=== PATIENT | female | born 1945 | race Caucasian/White ===

== ENCOUNTER 2016-09-07 07:27 | Outpatient (CLI) | payer MEDICARE ==
[2016-09-07 19:58] LABS: ALBUMIN/GLOBULIN RATIO 1.3 (1.0-2.2); BASOPHILS # (AUTO) 0.1 10^3/uL (0.0-0.1); BILIRUBIN,TOTAL 0.6 mg/dL (0.2-1.0); BUN - BLOOD UREA NITROGEN 22 mg/dL (6-20); CALCIUM 8.8 mg/dL (8.5-10.3); CARBON DIOXIDE - CO2 25 mmol/L (21-32); CHLORIDE 106 mmol/L (101-111); CHOL/HDL RATIO 3.9 (<4.4); CHOLESTEROL 164 mg/dL; CREATININE 1.3 mg/dL (0.4-1.0); EOSINOPHILS # (AUTO) 0.2 10^3/uL (0.0-0.7); EOSINOPHILS % (AUTO) 2.1 %; GFR - MDRD 41 (>89); GLUCOSE 156 mg/dL (70-100); HCT - HEMATOCRIT 36.8 % (37.0-47.0); HDL CHOLESTEROL 42 mg/dL; LDL/HDL RATIO 2.3 (<4.4); LYMPHOCYTES # (AUTO) 3.2 10^3/uL (1.5-3.5); LYMPHOCYTES % (AUTO) 36.7 %; MEAN CORPUSCULAR HEMOGLOBIN 31.3 pg (27.0-31.0); MEAN CORPUSCULAR HGB CONC 32.5 g/dL (32.0-36.0); MEAN CORPUSCULAR VOLUME 96.3 fL (81.0-99.0); MONOCYTES # (AUTO) 0.4 10^3/uL (0.0-1.0); MONOCYTES % (AUTO) 4.5 %; NEUTROPHILS # (AUTO) 4.8 10^3/uL (1.5-6.6); NEUTROPHILS % (AUTO) 55.7 %; NUCLEATED RED BLOOD CELLS AUTO 0.1 /100WBC; POTASSIUM 4.5 mmol/L (3.5-5.0); RED BLOOD COUNT 3.83 10^6/uL (4.20-5.40); RED CELL DISTRIBUTION WIDTH 14.7 % (12.0-15.0); SODIUM 138 mmol/L (135-145); TOTAL PROTEIN 7.2 g/dL (6.7-8.2); TRIGLYCERIDES 121 mg/dL; UNCORRECTED WHITE BLOOD COUNT 8.6 x10^3/uL; VLDL CHOLESTEROL 24 mg/dL; WHITE BLOOD COUNT 8.6 x10^3/uL (4.8-10.8)
[2016-09-07 20:00] LABS: HEMOGLOBIN A1C 0.67 g/dL
== END 2016-09-07 07:28 | disposition home or self-care (01) ==
LOC: LAB.N 07:27
PROVIDERS: ATTEND Nurse Practitioner Gerontology
DX: E78.5 Hyperlipidemia, unspecified (principal); E11.9 Type 2 diabetes mellitus without complications
CPT/HCPCS: 36415; 80053; 80061; 83036; 85025

== ENCOUNTER 2017-04-20 08:00 | Outpatient (CLI) | payer MEDICARE ==
[2017-04-20 19:23] LABS: HB2 TOTAL 13.2 g/dL; HEMOGLOBIN A1C 0.73 g/dL; HEMOGLOBIN A1C % 7.2 % (4.6-6.2)
== END 2017-04-20 08:01 | disposition home or self-care (01) ==
LOC: LAB.N 08:00
PROVIDERS: ATTEND Nurse Practitioner Gerontology
DX: E11.9 Type 2 diabetes mellitus without complications (principal)
CPT/HCPCS: 36415; 83036

== ENCOUNTER 2017-12-21 14:59 | Outpatient (CLI) | payer MEDICARE ==
--- NOTE | 2017-12-21 16:45 | XRAY Report ---
Reason: knee pain,left Procedure Date: 12/21/2017 Accession Number: [id number] / [id number] Procedure: XRN - Knee 3 View LT CPT Code: FULL RESULT: EXAM: LEFT KNEE RADIOGRAPHY EXAM DATE: 12/21/2017 03:26 PM. CLINICAL HISTORY: Knee pain,left. COMPARISON: None. TECHNIQUE: 3 views. FINDINGS: Bones: No fractures or bone lesions. Joints: Normal. No effusion. No subluxations. Soft Tissues: Small effusion. No soft tissue swelling. IMPRESSION: Small effusion. No acute bone findings. [facility]
== END 2017-12-21 15:00 | disposition home or self-care (01) ==
LOC: DI.N 14:59
PROVIDERS: ATTEND Nurse Practitioner Gerontology
DX: M25.561 Pain in right knee (principal); M25.461 Effusion, right knee

== ENCOUNTER 2018-01-18 12:16 | Emergency (ER) | payer MEDICARE ==
[2018-01-18] MEDS ORDERED: DEXAMETHASONE 10 MG/ML VIAL PO STA (13:37)
--- NOTE | 2018-01-18 13:41 | ED Physician Documentation ---
PD HPI LOWER EXT INJURY - Stated complaint Stated Complaint: LF KNEE PAIN - Chief complaint Chief Complaint: Ext Problem - History obtained from History obtained from: Patient - History of Present Illness PD HPI LOW EXT INJURY LOCATION: Left, Knee Type of injury: Other (walking the dog) Where injury occurred: Home Timing - onset: How many days ago (10) Timing - duration: Days (10+) Improved by: Rest, Immobilization Worsened by: Moving, Palpating Associated symptoms: Swelling. No: Weakness, Numbness Contributing factors: No: Anticoagulated Similar symptoms before: No diagnosis Recently seen: Clinic - Additional information Additional information: 72-year-old female has developed a pain in her left knee. She feels there is some swelling with this as well. The swelling has been present for about 10 days and she has pain when she is bearing weight on this. She is having pain that is awakening her at night. She has been into see her regular doctor and has had an x-ray of this showing a small joint effusion. She has been on some pain medication she got about 10 pills of this and she continues to have this pain. She was unaware of this small joint effusion. She does state that walks her dog on a regular basis and she has not been able to do that because of this pain. Review of Systems Constitutional: denies: Fever Eyes: denies: Decreased vision Ears: denies: Ear pain Nose: denies: Congestion Throat: denies: Sore throat Respiratory: denies: Cough GI: denies: Vomiting Musculoskeletal: reports: Extremity pain, Joint pain, Joint swelling, Pain with weight bearing. denies: Neck pain, Back pain Neurologic: denies: Generalized weakness, Focal weakness, Numbness PD PAST MEDICAL HISTORY - Past Medical History Cardiovascular: High cholesterol, Murmur Endocrine/Autoimmune: Type 2 diabetes HEENT: Chronic hearing loss, Other Psych: Depression Musculoskeletal: Chronic back pain - Past Surgical History Past Surgical History: No Ortho: Spine surgery /K[employer]ER: Hysterectomy - Present Medications Home Medications: Ambulatory Orders Medication Instructions Recorded Confirmed Amitriptyline HCl 75 mg PO QPM 06/05/15 06/05/15 Aspirin [Aspir-Low] 81 mg PO DAILY 06/05/15 06/05/15 Glipizide 5 mg PO QPM 06/05/15 06/05/15 Insulin Glargine,Hum.rec.anlog 10 unit SQ QPM 06/05/15 06/05/15 [Lantus] Lovastatin 20 mg PO QPM 06/05/15 06/05/15 Meloxicam 7.5 mg PO BID 06/05/15 06/05/15 Metformin HCl 1,000 mg PO BID 06/05/15 06/05/15 Oxycodone HCl/Acetaminophen 1 each PO TID PRN 06/05/15 06/05/15 [Oxycodone-Acetaminophen 5-325] Hydrocodone/Acetaminophen 1 - 2 each PO Q6H PRN #14 tablet 01/18/18 [Hydrocodon-Acetaminophen 5-325] - Allergies Allergies/Adverse Reactions: Allergies Allergy/AdvReac Type Severity Reaction Status Date / Time No Known Drug Allergies Allergy Verified 01/26/15 21:13 - Social History Does the pt smoke?: Yes Smoking Status: Current every day smoker Does the pt drink ETOH?: No Does the pt have substance abuse?: No - Immunizations Immunizations are current?: Yes - POLST Patient has POLST: No PD ED PE NORMAL - Vitals Vital signs reviewed: Yes (afebrile with mild systolic hypertension ) - General General: Alert and oriented X 3, No acute distress, Well developed/nourished - HEENT HEENT: Atraumatic, PERRL, EOMI - Respiratory Respiratory: No respiratory distress - Derm Derm: Normal color, Warm and dry, No rash - Extremities Extremities: No deformity, Other (There is a tiny joint effusion palpapble and this causes some pain for the patient. The knee joint itself runs through a full ROM but with some pain and the ligaements are stable to testing. ) - Neuro Neuro: Alert and oriented X 3, chemic mangler 2-12 intact, No motor deficit, No sensory deficit, Normal speech Eye Opening: Spontaneous Motor: Obeys Commands Verbal: Oriented GCS Score: 15 - Psych Psych: Normal mood, Normal affect Results - Vitals Vitals: Vital Signs - 24 hr 01/18/18 12:29 Temperature 36.3 C L Heart Rate 94 Respiratory 18 Rate Blood Pressure 136/61 H O2 Saturation 97 Oxygen O2 Source Room air PD MEDICAL DECISION MAKING - ED course Complexity details: reviewed old records, reviewed results, considered differential, d/w patient ED course: 72-year-old female with left knee pain appears to have a small joint effusion she likely has some reactive arthritis. I suspect suspect this is from excessive walking and I discussed this with the patient. We have given her a dose of dexamethasone 10 mg orally and some hydrocodone. We will provide some hydrocodone for the patient as well. I have asked her to follow-up with orthopedics as she may need further treatment of this joint. Departure - Departure Disposition: Home, Self Care Clinical Impression: Reactive arthritis of knee Condition: Stable Instructions: ED Degenerative Joint Disease Follow-Up: Johana Penny ARNP [Primary Care Provider] - [facility] [Provider Group] Prescriptions: Hydrocodone/Acetaminophen [Hydrocodon-Acetaminophen 5-325] 1 - 2 each PO Q6H PRN #14 tablet PRN Reason: pain
[2018-01-18 15:36] VITALS: BP 135/72
== END 2018-01-18 13:48 | disposition home or self-care (01) ==
LOC: ED 12:16
DX: M02.362 Reiter's disease, left knee (principal); E78.00 Pure hypercholesterolemia, unspecified; E11.9 Type 2 diabetes mellitus without complications; Z79.4 Long term (current) use of insulin; Z79.82 Long term (current) use of aspirin; F17.200 Nicotine dependence, unspecified, uncomplicated
CPT/HCPCS: 99283

== ENCOUNTER 2018-05-06 09:36 | Outpatient (CLI) | payer MEDICARE ==
--- NOTE | 2018-05-07 12:11 | MRI Report ---
Reason: KNEE PAIN,LEFT, RIGHT Procedure Date: 05/06/2018 Accession Number: [id number] / [id number] Procedure: MRI - Knee LT W/O CPT Code: FULL RESULT: EXAM: LEFT KNEE MRI WITHOUT CONTRAST EXAM DATE: 05/06/2018 11:07 AM. CLINICAL HISTORY: Left knee pain. No known injury. COMPARISON: KNEE 3 VIEW LT 12/21/2017 3:25 PM. TECHNIQUE: Multiplanar, multisequence T1-weighted and fluid-sensitive sequences of the knee without contrast. Other: None. FINDINGS: Some of the images are degraded due to patient-related motion artifact. Bones and Articular Cartilage: Small bone island at the medial femoral condyle. No acute fracture or bone lesions. 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 No subluxation. Medial Meniscus: Free edge fraying at the medial meniscus. No tear. Lateral Meniscus: Small radial tear at the free edge of the anterior horn. Cruciate Ligaments: The anterior cruciate ligament is intact, but has a lax appearance. The posterior cruciate ligament is intact. Collateral Ligaments: The medial collateral and lateral collateral ligamentous structures are intact. Tendons: The quadriceps, patellar, semimembranosus, and popliteus tendons are unremarkable. Musculature: No edema or fatty atrophy. Other: No effusion. Small popliteal cyst. No loose bodies. The medial and lateral retinacula are intact. The subcutaneous tissues and fat pads are unremarkable. IMPRESSION: 1. Slightly technically limited exam due to patient-related motion artifact. 2. 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 3. Free edge fraying of the medial meniscus. No discrete tear. 4. Small radial tear at the free edge of the anterior horn lateral meniscus. 5. The anterior cruciate ligament is intact, but has a lax appearance. This may be due to previous remote injury. Clinical correlation with regards to joint instability. [facility] MUSCULOSKELETAL RADIOLOGY SECTION
--- NOTE | 2018-05-07 12:20 | MRI Report ---
Reason: KNEE PAIN,LEFT, RIGHT Procedure Date: 05/06/2018 Accession Number: [id number] / [id number] Procedure: MRI - Knee RT W/O CPT Code: FULL RESULT: EXAM: RIGHT KNEE MRI WITHOUT CONTRAST EXAM DATE: 05/06/2018 11:08 AM. CLINICAL HISTORY: Right knee pain. No known injury. COMPARISON: KNEE LT W/O 05/06/2018 10:37 AM. TECHNIQUE: Multiplanar, multisequence T1-weighted and fluid-sensitive sequences of the knee without contrast. Other: None. FINDINGS: Bones and articular cartilage: Small bone island at the lateral aspect of the proximal tibial metaphysis. Grade III chondromalacia at the inferior aspect of the patella. Small subcortical cyst at the inferior aspect of the medial trochlear facet. Medial Meniscus: Focal fraying at the inferior surface of the posterior horn. No definite discrete tear is seen. Lateral Meniscus: The lateral meniscus is intact. Cruciate Ligaments: The anterior and posterior cruciate ligaments are intact. Collateral Ligaments: The medial collateral and lateral collateral ligamentous structures are intact. Tendons: The quadriceps, patellar, semimembranosus, and popliteus tendons are unremarkable. Musculature: No edema or fatty atrophy. Other: No effusion. Small popliteal cyst. No loose bodies. The medial and lateral retinacula are intact. The subcutaneous tissues and fat pads are unremarkable. IMPRESSION: 1. Focal grade III chondromalacia at the inferior aspect of the patella. 2. Focal fraying at the inferior surface of the posterior horn medial meniscus. No definite discrete meniscal tear is seen. 3. Small popliteal cyst. 4. No ligament tear. [facility] MUSCULOSKELETAL RADIOLOGY SECTION
== END 2018-05-06 09:37 | disposition home or self-care (01) ==
LOC: DI 09:36
PROVIDERS: ATTEND Family Medicine
DX: S83.282A Other tear of lateral meniscus, current injury, left knee, initial encounter (principal); M94.262 Chondromalacia, left knee; M71.22 Synovial cyst of popliteal space [Baker], left knee; M22.41 Chondromalacia patellae, right knee; M71.21 Synovial cyst of popliteal space [Baker], right knee

== ENCOUNTER 2018-06-04 12:00 | Emergency (ER) | payer MEDICARE ==
[2018-06-04 12:06] VITALS: BP 159/82
--- NOTE | 2018-06-04 12:23 | ED Physician Documentation ---
PD HPI HEENT - Stated complaint Stated Complaint: LT SIDE FACE SWELLING - Chief complaint Chief Complaint: Heent - History obtained from History obtained from: Patient - History of Present Illness Timing - onset: Other (73-year-old woman with a 2-3-day history of a painful swelling below the left ear. She denies ear pain or sore throat. There is no fevers or chills with it.) Review of Systems Constitutional: denies: Fever, Chills, Myalgias, Fatigue Ears: denies: Drainage/discharge Nose: denies: Rhinorrhea / runny nose, Congestion Throat: denies: Sore throat PD PAST MEDICAL HISTORY - Past Medical History Cardiovascular: High cholesterol, Murmur Endocrine/Autoimmune: Type 2 diabetes HEENT: Chronic hearing loss, Other Psych: Depression Musculoskeletal: Chronic back pain - Past Surgical History Past Surgical History: No Ortho: Spine surgery /[employer]ALES [employer]ING: Hysterectomy - Present Medications Home Medications: Ambulatory Orders Medication Instructions Recorded Confirmed Amitriptyline HCl 75 mg PO QPM 06/05/15 06/05/15 Aspirin [Aspir-Low] 81 mg PO DAILY 06/05/15 06/05/15 Glipizide 5 mg PO QPM 06/05/15 06/05/15 Insulin Glargine,Hum.rec.anlog 10 unit SQ QPM 06/05/15 06/05/15 [Lantus] Lovastatin 20 mg PO QPM 06/05/15 06/05/15 Metformin HCl 1,000 mg PO BID 06/05/15 06/05/15 Amitriptyline [Elavil] 10 mg PO 06/04/18 06/04/18 Amox/Clav 875/125 [Augmentin] 1 each PO Q12H #20 tablet 06/04/18 Diclofenac Sodium 25 mg PO 06/04/18 06/04/18 Hydrocodone/Acetaminophen 1 - 2 each PO Q6H PRN #14 tablet 06/04/18 [Hydrocodon-Acetaminophen 5-325] - Allergies Allergies/Adverse Reactions: Allergies Allergy/AdvReac Type Severity Reaction Status Date / Time No Known Drug Allergies Allergy Verified 06/04/18 12:06 - Social History Does the pt smoke?: Yes Smoking Status: Current every day smoker Does the pt drink ETOH?: No Does the pt have substance abuse?: No - Immunizations Immunizations are current?: Yes - POLST Patient has POLST: No PD ED PE NORMAL - Vitals Vital signs reviewed: Yes - General General: Alert and oriented X 3, No acute distress - HEENT HEENT: Other (She has a 1-2 cm tender infraauricular lymph node on the left without other obvious adenopathy.) - Neck Neck: Supple, no meningeal sign, No bony TTP - Neuro Neuro: Alert and oriented X 3, Normal speech - Psych Psych: Normal mood, Normal affect Results - Vitals Vitals: Vital Signs - 24 hr 06/04/18 12:04 Temperature 36.2 C L Heart Rate 88 Respiratory 20 Rate Blood Pressure 159/82 H O2 Saturation 100 Oxygen O2 Source Room air PD MEDICAL DECISION MAKING - ED course ED course: This is a 73-year-old woman with lymphadenitis on the left, given her age and smoking status malignancy is considered but the short time course and pain associated with it suggest more of an infection. After discussion we decided that she will trial antibiotics and follow-up with her doctor in a week. She understands the importance of follow-up and biopsy if this is not improving. Departure - Departure Disposition: 01 Home, Self Care Clinical Impression: Lymphadenitis Condition: Good Record reviewed to determine appropriate education?: Yes Instructions: ED Cervical Adenitis Abx Tx Prescriptions: Amox/Clav 875/125 [Augmentin] 1 each PO Q12H #20 tablet Hydrocodone/Acetaminophen [Hydrocodon-Acetaminophen 5-325] 1 - 2 each PO Q6H PRN #14 tablet PRN Reason: pain Comments: You have a swollen lymph node in your neck which is painful and tender for the last 3 days. It is usually due to an infection. As such it should get better with time and antibiotics. Follow-up with your doctor in a week, if it does not go away here she may want to get some pictures of it or refer you For a biopsy.
== END 2018-06-04 12:26 | disposition home or self-care (01) ==
LOC: ED 12:00
DX: I88.9 Nonspecific lymphadenitis, unspecified (principal); E11.9 Type 2 diabetes mellitus without complications; Z79.4 Long term (current) use of insulin; E78.00 Pure hypercholesterolemia, unspecified; F17.200 Nicotine dependence, unspecified, uncomplicated
CPT/HCPCS: 99283; 99284

== ENCOUNTER 2018-06-07 16:30 | Emergency (ER) | payer MEDICARE ==
--- NOTE | 2018-06-07 16:43 | ED Physician Documentation ---
PD HPI NECK PAIN - Stated complaint Stated Complaint: SENT BY - Chief complaint Chief Complaint: Trauma Hd/Nk - History obtained from History obtained from: Patient - History of Present Illness Timing - onset: Other (73-year-old woman who I saw a couple of days ago for what looks like lymphadenitis with a 2 cm lymph node inferior to the left ear. She was placed on Augmentin. She went to her doctor's office today and the mass was much larger and more painful. She vacillates on whether or not she has had subjective fevers. She was sent from her doctor's office here for reevaluation given the interval progression.) Review of Systems Ten Systems: 10 systems reviewed and negative Constitutional: reports: Fever (?). denies: Chills Nose: denies: Rhinorrhea / runny nose, Congestion Throat: denies: Sore throat Cardiac: denies: Chest pain / pressure, Palpitations Respiratory: reports: Dyspnea. 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 - Present Medications Home Medications: Ambulatory Orders Medication Instructions Recorded Confirmed Amitriptyline HCl 75 mg PO QPM 06/05/15 06/05/15 Aspirin [Aspir-Low] 81 mg PO DAILY 06/05/15 06/05/15 Glipizide 5 mg PO QPM 06/05/15 06/05/15 Insulin Glargine,Hum.rec.anlog 10 unit SQ QPM 06/05/15 06/05/15 [Lantus] Lovastatin 20 mg PO QPM 06/05/15 06/05/15 Metformin HCl 1,000 mg PO BID 06/05/15 06/05/15 Amitriptyline [Elavil] 10 mg PO 06/04/18 06/04/18 Amox/Clav 875/125 [Augmentin] 1 each PO Q12H #20 tablet 06/04/18 Diclofenac Sodium 25 mg PO 06/04/18 06/04/18 Hydrocodone/Acetaminophen 1 - 2 each PO Q6H PRN #14 tablet 06/04/18 [Hydrocodon-Acetaminophen 5-325] - Allergies Allergies/Adverse Reactions: Allergies Allergy/AdvReac Type Severity Reaction Status Date / Time No Known Drug Allergies Allergy Verified 06/07/18 16:35 - Social History Does the pt smoke?: Yes Smoking Status: Current every day smoker Does the pt drink ETOH?: No Does the pt have substance abuse?: No - Family History Family history: reports: Non contributory - Immunizations Immunizations are current?: Yes - POLST Patient has POLST: No PD ED PE NORMAL - Vitals Vital signs reviewed: Yes - General General: Alert and oriented X 3, No acute distress, Other (She is deaf but we communicate fine with lip reading) - HEENT HEENT: Pharynx benign, Other (There is a large tender mass measuring about 5 cm now inferior to the left ear. Her neck is supple. There is no overlying skin changes.) - Neck Neck: Supple, no meningeal sign, No bony TTP - Cardiac Cardiac: Other (Heart is rapid and irregular, rapid atrial fibrillation on the monitor.) - Respiratory Respiratory: No respiratory distress, Clear bilaterally - Abdomen Abdomen: Soft, Non tender - Back Back: No CVA TTP, No spinal TTP - Extremities Extremities: No edema, No calf tenderness / cord - Neuro Neuro: Alert and oriented X 3, Normal speech - Psych Psych: Normal mood, Normal affect Results - Vitals Vitals: Vital Signs - 24 hr 06/07/18 06/07/18 06/07/18 16:34 16:35 17:02 Temperature 36.4 C L 36.4 C L Heart Rate 146 H 146 H 149 H Respiratory 18 18 Rate Blood Pressure 116/62 116/62 125/100 H O2 Saturation 98 98 06/07/18 06/07/18 17:08 17:51 Temperature Heart Rate 100 91 Respiratory 21 Rate Blood Pressure 111/90 H 132/55 H O2 Saturation 96 Oxygen O2 Source Room air - EKG (time done) 1701 Rate: Rate (enter#) (152) Rhythm: Atrial fibrillation [place]: Normal Intervals: RBBB Ischemia: Normal ST segments - Labs Labs: Laboratory Tests 06/07/18 06/07/18 06/07/18 17:02 17:02 17:02 WBC 11.4 H RBC 3.63 L Hgb 11.1 L Hct 34.3 L MCV 94.4 MCH 30.7 MCHC 32.5 RDW 15.3 H Plt Count 192 MPV 9.1 Neut # (Auto) 8.4 H Lymph # (Auto) 2.1 [place] # (Auto) 0.7 Eos # (Auto) 0.1 Baso # (Auto) 0.1 Absolute Nucleated RBC 0.00 Nucleated RBC % 0.0 Sodium 134 L Potassium 4.4 Chloride 98 L Carbon Dioxide 22 Anion Gap 14.0 H BUN 31 H Creatinine 1.6 H Estimated GFR (MDRD) 32 L Glucose 142 H Calcium 9.4 Total Bilirubin 0.6 AST 16 ALT 16 Alkaline Phosphatase 53 Troponin I < 0.04 B-Natriuretic Peptide Total Protein 7.9 Albumin 3.8 Globulin 4.1 Albumin/Globulin Ratio 0.9 L Lipase 23 TSH 06/07/18 06/07/18 17:02 17:02 WBC RBC Hgb Hct MCV MCH MCHC RDW Plt Count MPV Neut # (Auto) Lymph # (Auto) [place] # (Auto) Eos # (Auto) Baso # (Auto) Absolute Nucleated RBC Nucleated RBC % Sodium Potassium Chloride Carbon Dioxide Anion Gap BUN Creatinine Estimated GFR (MDRD) Glucose Calcium Total Bilirubin AST ALT Alkaline Phosphatase Troponin I B-Natriuretic Peptide 216 H Total Protein Albumin Globulin Albumin/Globulin Ratio Lipase TSH 2.79 - Rads (name of study) CT Neck Radiology: EMP read contemporaneously (Parotitis with possible sialolith and possible myositis of the sternocleidomastoid.) PD MEDICAL DECISION MAKING - ED course ED course: 73-year-old woman presents with progressive painful neck mass, most likely in fectious in etiology given the progression. She also has new atrial fibrillation which is rapid. An IV was placed and labs were drawn. She was administered diltiazem and a CT of the neck was ordered. After results, Spoke with Juwan Dobbs, [facility]NT [place], rec, IV ABx here and decadron 20mg and they will see her tomorrow. After these the single dose of diltiazem she did convert to normal sinus rhythm. Departure - Departure Disposition: 01 Home, Self Care Clinical Impression: Parotitis Myositis Qualifiers: Myositis type: infective Myositis location: unspecified site Qualified Code(s): M60.009 - Infective myositis, unspecified site; M60.00 - Infective myositis, unspecified site Afib Qualifiers: Atrial fibrillation type: paroxysmal Qualified Code(s): I48.0 - Paroxysmal atrial fibrillation Condition: Good Record reviewed to determine appropriate education?: Yes Instructions: Atrial Fibrillation Dc Comments: Continue the current antibiotics, use lemonheads candy to try to milk the salivary duct. Followup with Dr Hamilton tomorrow in [place], Call [phone] at 8am and let them know we spoke with Dr Rinku gold and he wants you to bee seen tomorrow. Talk with your primary care physician about the new onset atrial fibrillation which we fixed in the emergency department, but this may come back at some point.
[2018-06-07] MEDS ORDERED: diltiaZEM INJ 5 MG/ML VIAL IVP STA (16:54)
[2018-06-07] MEDS ORDERED: IOVERSOL 320 100 ML VIAL IVP ONE ×2 (17:00→18:20)
[2018-06-07 17:12] LABS: BASOPHILS # (AUTO) 0.1 10^3/uL (0.0-0.1); BASOPHILS % (AUTO) 0.7 %; EOSINOPHILS # (AUTO) 0.1 10^3/uL (0.0-0.7); HGB - HEMOGLOBIN 11.1 g/dL (12.0-16.0); LYMPHOCYTES # (AUTO) 2.1 10^3/uL (1.5-3.5); LYMPHOCYTES % (AUTO) 18.7 %; MEAN CORPUSCULAR HEMOGLOBIN 30.7 pg (27.0-31.0); MEAN CORPUSCULAR HGB CONC 32.5 g/dL (32.0-36.0); MEAN CORPUSCULAR VOLUME 94.4 fL (81.0-99.0); MEAN PLATELET VOLUME 9.1 fL (7.9-10.8); MONOCYTES # (AUTO) 0.7 10^3/uL (0.0-1.0); MONOCYTES % (AUTO) 6.1 %; NEUTROPHILS # (AUTO) 8.4 10^3/uL (1.5-6.6); NEUTROPHILS % (AUTO) 73.5 %; PLT - PLATELET COUNT 192 10^3/uL (130-450); RED BLOOD COUNT 3.63 10^6/uL (4.20-5.40); RED CELL DISTRIBUTION WIDTH 15.3 % (12.0-15.0); WHITE BLOOD COUNT 11.4 x10^3/uL (4.8-10.8)
[2018-06-07 17:26] LABS: ALBUMIN 3.8 g/dL (3.2-5.5); ALBUMIN/GLOBULIN RATIO 0.9 (1.0-2.2); BILIRUBIN,TOTAL 0.6 mg/dL (0.2-1.0); CALCIUM 9.4 mg/dL (8.5-10.3); CREATININE 1.6 mg/dL (0.4-1.0); TOTAL PROTEIN 7.9 g/dL (6.7-8.2)
--- NOTE | 2018-06-07 18:39 | CT Report ---
Reason: L neck mass Procedure Date: 06/07/2018 Accession Number: [id number] / [id number] Procedure: CT - SOFT TISSUE NECK W CPT Code: FULL RESULT: EXAM: CT SOFT TISSUE NECK WITH CONTRAST. EXAM DATE: 06/07/2018 05:46 PM. HISTORY: 73-year-old with left neck mass. Evaluate for neck pathology. COMPARISONS: None. TECHNIQUE: Routine soft tissue neck CT protocol. Reconstructions: Coronal and sagittal. IV contrast: OPTI 320 80mL. In accordance with CT protocol optimization, one or more of the following dose reduction techniques were utilized for this exam: automated exposure control, adjustment of mA and/or KV based on patient size, or use of iterative reconstructive technique. FINDINGS: Visualized Intracranial Contents: Unremarkable. Orbits: Symmetric and unremarkable. Sinuses: Visualized paranasal sinuses and mastoid air cells are clear. Oral cavity: The visualized oral cavity is unremarkable. The floor of the mouth is symmetric. Pharynx: Pharyngeal mucosa is unremarkable. The infratemporal fossa, parapharyngeal spaces, and retropharyngeal space are unremarkable. The base of the tongue is symmetric and unremarkable. The airway is patent. Larynx: Larynx and supraglottic airway are patent without mass lesion. Vocal cords are symmetric. The visualized trachea is unremarkable. Parotid and Submandibular Glands: There is enlargement of the heterogenous enhancement of the left parotid gland. There is a hyperdense lesion within the posterior aspect of the superficial left parotid gland measuring 26 x 18 x 17 mm (CC by TR by AP). Right parotid gland appears normal. Bilateral submandibular glands appear normal. Lymph Nodes: Small subcentimeter cervical lymph nodes are seen throughout the neck that do not meet CT criteria for pathology. Soft tissues: There is mild to moderate surrounding soft tissue stranding within the left periparotid region with soft tissue stranding extending into the left platysma muscle and into the left neck. There is enlargement and heterogenous enhancement of the left sternocleidomastoid muscle. No rim-enhancing fluid collection seen. Vascular Structures: Vascular plaque involving the carotid bulbs with no definite high-grade stenosis seen. There is a retropharyngeal course of the cervical ICAs. Thyroid Gland: Normal. Lung: The visualized lung apices are clear. Bones: No evidence of acute fracture or malalignment. There are mild degenerative changes. Other: None. IMPRESSION: 1. CT findings concerning for potential mild to moderate left parotid gland sialoadenitis. There is a hyperdense lesion within the posterior aspect of the superficial left parotid gland measuring 26 x 18 x 17 mm (CC by TR by AP). Finding may represent phlegmon. Possibility of underlying mass lesion while less likely cannot be excluded and repeat examination with CT or focal ultrasound should be considered after appropriate treatment. 2. CT findings concerning for myositis of the left sternocleidomastoid muscle. No definite rim-enhancing fluid collection seen. 3. Mild to moderate inflammatory stranding extending from the periparotid space down the left neck representing cellulitis. No REM enhancing fluid collection seen. [facility]
[2018-06-07] MEDS ORDERED: cefTRIAXone 1 GM in SODIUM CHLORIDE 0.9% MINIBAG 100 ML IV STA (19:01)
[2018-06-07] MEDS ORDERED: DEXAMETHASONE 10 MG/ML VIAL IVP STA (19:07)
[2018-06-07 19:18] VITALS: BP 114/92
--- NOTE | 2018-06-07 19:18 | XRAY Report ---
Reason: dyspnea Procedure Date: 06/07/2018 Accession Number: [id number] / [id number] Procedure: XR - Chest 1 View X-Ray CPT Code: 26313 FULL RESULT: EXAM: CHEST RADIOGRAPHY EXAM DATE: 06/07/2018 06:15 PM. CLINICAL HISTORY: Dyspnea. COMPARISON: 12/06/2013 1:56 PM. TECHNIQUE: 1 view. FINDINGS: Lungs/Pleura: Suboptimal chest radiograph due to radiation exposure factors. Low lung volumes with bibasilar hazy opacities, most consistent with atelectasis. No large pleural effusion. No pneumothorax. Mediastinum: Within exam limitations, the cardiomediastinal contour is normal. Other: None. IMPRESSION: Low lung volumes with bibasilar hazy opacities, most consistent with atelectasis. Suboptimal chest radiograph due to radiation exposure factors. [facility]
== END 2018-06-07 20:02 | disposition home or self-care (01) ==
LOC: ED 16:30
DX: M60.009 Infective myositis, unspecified site (principal); K11.20 Sialoadenitis, unspecified; I48.0 Paroxysmal atrial fibrillation; I45.10 Unspecified right bundle-branch block; R00.0 Tachycardia, unspecified; E78.00 Pure hypercholesterolemia, unspecified; E11.9 Type 2 diabetes mellitus without complications; Z79.4 Long term (current) use of insulin; Z79.82 Long term (current) use of aspirin; F17.200 Nicotine dependence, unspecified, uncomplicated
CPT/HCPCS: 36415; 70491; 71045; 83690; 83880; 84484; 93005; 96365; 96375; 99283; 99284; Q9967; 80053; 84443; 85025

== ENCOUNTER 2018-07-11 11:46 | Outpatient (CLI) | payer MEDICARE ==
[2018-07-11 19:20] LABS: CALCIUM 8.8 mg/dL (8.5-10.3)
[2018-07-11 20:15] LABS: HB2 TOTAL 12.4 g/dL; HEMOGLOBIN A1C 0.64 g/dL; HEMOGLOBIN A1C % 6.9 % (4.6-6.2)
== END 2018-07-11 11:47 | disposition home or self-care (01) ==
LOC: LAB.WCP 11:46
PROVIDERS: ATTEND Family Medicine
DX: E11.9 Type 2 diabetes mellitus without complications (principal)
CPT/HCPCS: 36415; 80048; 82043; 83036

== ENCOUNTER 2018-10-07 08:00 | Outpatient (CLI) | payer MEDICARE ==
[2018-10-07 11:56] LABS: CALCIUM 9.2 mg/dL (8.5-10.3); CREATININE 1.2 mg/dL (0.4-1.0)
[2018-10-07 13:26] LABS: HB2 TOTAL 12.5 g/dL; HEMOGLOBIN A1C 0.59 g/dL; HEMOGLOBIN A1C % 6.5 % (4.6-6.2)
[2018-10-07 18:34] LABS: CREATININE,URINE 107.8 mg/dL; MICROALBUM/CREATININE RATIO,UR 2.8 ug/mg (<30.0); MICROALBUMIN,URINE 0.3 mg/dL (0-300.0)
== END 2018-10-07 23:59 | disposition home or self-care (01) ==
LOC: LAB.N 08:00
PROVIDERS: ATTEND Family Medicine
DX: E11.9 Type 2 diabetes mellitus without complications (principal)
CPT/HCPCS: 36415; 80048; 82043; 82570; 83036

== ENCOUNTER 2019-04-18 13:54 | Outpatient (CLI) | payer MEDICARE ==
[2019-04-18 18:55] LABS: CALCIUM 9.1 mg/dL (8.5-10.3); CREATININE 1.2 mg/dL (0.4-1.0)
[2019-04-18 19:02] LABS: HB2 TOTAL 12.2 g/dL; HEMOGLOBIN A1C 0.59 g/dL; HEMOGLOBIN A1C % 6.6 % (4.6-6.2)
[2019-04-18 19:13] LABS: CREATININE,URINE 195.6 mg/dL; MICROALBUM/CREATININE RATIO,UR 2.6 ug/mg (<30.0); MICROALBUMIN,URINE 0.5 mg/dL (0-300.0)
== END 2019-04-18 23:59 | disposition home or self-care (01) ==
LOC: LAB.N 13:54
PROVIDERS: ATTEND Family Medicine
DX: E11.9 Type 2 diabetes mellitus without complications (principal)
CPT/HCPCS: 36415; 80048; 82043; 82570; 83036

== ENCOUNTER 2019-07-12 17:31 | Inpatient (IN) | payer MEDICARE ==
--- NOTE | 2019-07-12 18:02 | ED Physician Documentation ---
PD HPI FOCAL NEURO - Stated complaint Stated Complaint: R SIDE WEAKNESS/NUMBNESS - History obtained from History obtained from: Patient - History of Present Illness Timing - onset: How many days ago (2 days ago but more notable this morning when got out of bed.) Timing - duration: Days (2) Timing - details: Abrupt onset, Still present Severity of deficit: Moderate (She is still able to walk around but has limp and was having to support herself some on the wall. She was unable to lift and hold a drinking glass with her right hand and was using her left instead. The symptoms did not improve and seemed a little bit worse this morning and her daughter encouraged her to come in for evaluation. She denied any headache or head injury. She is not on any blood thinners. She has not had any prior similar episodes. She denies any cough cold or flu symptoms.) Weakness: Face, Arm, Leg, Right Numbness: Face, Arm, Leg, Right Associated symptoms: Headache (some frontal today). No: Nausea / vomiting, Syncope, Fall, Head injury, Chest pain, Fever Baseline status: positive: A&OX3, ambulatory, indep, Other (hearing impaired) Similar symptoms before: Has not had sx before Review of Systems Constitutional: denies: Fever, Chills Nose: denies: Rhinorrhea / runny nose, Congestion Throat: denies: Sore throat Cardiac: denies: Chest pain / pressure, Palpitations Respiratory: denies: Cough, Wheezing GI: denies: Abdominal Pain, Nausea, Vomiting, Diarrhea Skin: denies: Rash Neurologic: reports: Focal weakness, Numbness. denies: Generalized weakness, Syncope, Altered mental status PD PAST MEDICAL HISTORY - Past Medical History Cardiovascular: High cholesterol, Murmur Respiratory: None Neuro: None Endocrine/Autoimmune: Type 2 diabetes HEENT: Chronic hearing loss, Other Psych: Depression Musculoskeletal: Chronic back pain - Past Surgical History Past Surgical History: No Ortho: Spine surgery /MOTOR RACER: Hysterectomy - Present Medications Home Medications: Ambulatory Orders Medication Instructions Recorded Confirmed Amitriptyline HCl 75 mg PO QPM 06/05/15 06/05/15 Aspirin [Aspir-Low] 81 mg PO DAILY 06/05/15 06/05/15 Glipizide 5 mg PO QPM 06/05/15 06/05/15 Insulin Glargine,Hum.rec.anlog 10 unit SQ QPM 06/05/15 06/05/15 [Lantus] Lovastatin 20 mg PO QPM 06/05/15 06/05/15 Metformin HCl 1,000 mg PO BID 06/05/15 06/05/15 Amitriptyline [Elavil] 10 mg PO 06/04/18 06/04/18 Amox/Clav 875/125 [Augmentin] 1 each PO Q12H #20 tablet 06/04/18 Diclofenac Sodium 25 mg PO 06/04/18 06/04/18 Hydrocodone/Acetaminophen 1 - 2 each PO Q6H PRN #14 tablet 06/04/18 [Hydrocodon-Acetaminophen 5-325] - Allergies Allergies/Adverse Reactions: Allergies Allergy/AdvReac Type Severity Reaction Status Date / Time No Known Drug Allergies Allergy Verified 07/12/19 18:01 - Social History Does the pt smoke?: Yes Smoking Status: Current every day smoker Does the pt drink ETOH?: No Does the pt have substance abuse?: No - Immunizations Immunizations are current?: Yes - POLST Patient has POLST: No PD ED PE NORMAL - Vitals Vital signs reviewed: Yes - General General: Alert and oriented X 3, No acute distress, Well developed/nourished, Other (hearing impaired so communication by lip reading or ASL tablet. She can write as well. ) - HEENT HEENT: Pharynx benign - Neck Neck: Supple, no meningeal sign, No adenopathy, No bruit - Cardiac Cardiac: No: RRR (tachycardic without murmur) - Respiratory Respiratory: Clear bilaterally - Abdomen Abdomen: Soft, Non tender - Back Back: No CVA TTP - Derm Derm: Normal color, Warm and dry - Extremities Extremities: No tenderness to palpate, Normal ROM s pain, No edema, No calf tenderness / cord - Neuro Neuro: Alert and oriented X 3, Normal speech Eye Opening: Spontaneous Motor: Obeys Commands Verbal: Oriented GCS Score: 15 NIHSS - Level of Consciousness Level of consciousness: (0) Alert, Keenly responsive LOC Questions: (0) Answers both Q's correct LOC Commands: (0) Performs both correctly - Gaze Best Gaze: (0) Normal - Visual Visual: (0) No loss - Facial Palsy Facial Palsy: (1) Minor paralysis - Motor Arms (both separate) Motor Arm (right): (1) Drift Motor Arm (left): (0) No drift - Motor Legs (both separate) Motor Leg (right): (1) Drift Motor Leg (left): (0) No drift - Limb Ataxia Limb Ataxia: (0) Absent - Sensory Sensory: (1) [id number] loss - Best Language Best Language: (0) No aphasia - Dysarthria Dysarthria: (0) Normal - Extinction and Inattention (formally neg Extinction and inattention: (0) No abnormality - Total Score/Results Total Score/Result: 4 Results - Vitals Vitals: Vital Signs - 24 hr 07/12/19 07/12/19 07/12/19 18:02 18:40 20:10 Temperature 36.5 C Heart Rate 70 110 H Respiratory 30 H 24 17 Rate Blood Pressure 105/71 117/98 H O2 Saturation 97 94 07/12/19 07/12/19 20:14 21:10 Temperature Heart Rate 132 H 141 H Respiratory 17 16 Rate Blood Pressure 138/73 H 106/81 H O2 Saturation 98 96 Oxygen O2 Source Room air - EKG (time done) 18:35 Rate: Rate (enter#) (143) Rhythm: Sinus tachycardia [place]: RAD Intervals: LBBB Ischemia: Normal ST segments, Non specific changes - Labs Labs: Laboratory Tests 07/12/19 07/12/19 07/12/19 18:11 18:33 18:33 WBC 7.8 RBC 3.50 L Hgb 10.8 L Hct 33.9 L MCV 96.9 MCH 30.9 MCHC 31.9 L RDW 15.9 H Plt Count 183 MPV 10.5 Neut # (Auto) 4.8 Lymph # (Auto) 2.1 [place] # (Auto) 0.6 Eos # (Auto) 0.1 Baso # (Auto) 0.1 Absolute Nucleated RBC 0.00 Nucleated RBC % 0.0 Sodium 137 Potassium 4.5 Chloride 103 Carbon Dioxide 25 Anion Gap 9.0 BUN 22 H Creatinine 1.3 H Estimated GFR (MDRD) 40 L Glucose 120 H POC Whole Bld Glucose 123 H Calcium 8.6 Magnesium 1.5 L Total Bilirubin 0.5 AST 19 ALT 27 Alkaline Phosphatase 45 Troponin I High Sens B-Natriuretic Peptide Total Protein 7.4 Albumin 3.9 Globulin 3.5 Albumin/Globulin Ratio 1.1 Lipase 25 Urine Color Urine Clarity Urine pH Ur Specific [place] Urine Protein Urine Glucose (UA) Urine Ketones Urine Occult Blood Urine Nitrite Urine Bilirubin Urine Urobilinogen Ur Leukocyte Esterase Ur Microscopic Review Urine Culture Comments 07/12/19 07/12/19 07/12/19 18:33 18:33 20:05 WBC RBC Hgb Hct MCV MCH MCHC RDW Plt Count MPV Neut # (Auto) Lymph # (Auto) [place] # (Auto) Eos # (Auto) Baso # (Auto) Absolute Nucleated RBC Nucleated RBC % Sodium Potassium Chloride Carbon Dioxide Anion Gap BUN Creatinine Estimated GFR (MDRD) Glucose POC Whole Bld Glucose Calcium Magnesium Total Bilirubin AST ALT Alkaline Phosphatase Troponin I High Sens 11.7 B-Natriuretic Peptide 489 H Total Protein Albumin Globulin Albumin/Globulin Ratio Lipase Urine Color YELLOW Urine Clarity CLEAR Urine pH 5.0 Ur Specific [place] 1.020 Urine Protein NEGATIVE Urine Glucose (UA) NEGATIVE Urine Ketones NEGATIVE Urine Occult Blood NEGATIVE Urine Nitrite NEGATIVE Urine Bilirubin NEGATIVE Urine Urobilinogen 0.2 (NORMAL) Ur Leukocyte Esterase NEGATIVE Ur Microscopic Review NOT INDICATED Urine Culture Comments NOT INDICATED PD MEDICAL DECISION MAKING - ED course Complexity details: reviewed results (No acute bleed or tumors or swelling. No obvious stroke on CT. The [place] portion did not show any stenoses in the middle cerebral artery area. The carotids did show some stenoses at the 60 to 70% range on both sides.), considered differential (Patient's initial heart rate and blood pressure were good and then seemed to have increasing heart rate here in the department. On the monitor it did seem regular though we got an EKG to better evaluate. This appeared to be a sinus tachycardia. Heart rate did vary so did not seem to be atrial flutter. She was given some diltiazem IV with improvement in the heart rate down to approximately 1 10-1 20. It still seems regular. She is not having any dyspnea. Her right arm and leg weakness is similar to the initial exam.), d/w patient Departure - Departure Disposition: 66 [facility] DC/Xfer Clinical Impression: Acute right-sided weakness Condition: Stable Record reviewed to determine appropriate education?: Yes Discharge Date/Time: 07/12/19 21:50
[2019-07-12] MEDS ORDERED: DILTIAZEM 50 MG/10 ML VIAL IVP ONE (18:24)
[2019-07-12] MEDS ORDERED: ASPIRIN CHEW 81 MG TABLET PO STA (18:25)
[2019-07-12 18:39] LABS: BASOPHILS # (AUTO) 0.1 10^3/uL (0.0-0.1); EOSINOPHILS # (AUTO) 0.1 10^3/uL (0.0-0.7); EOSINOPHILS % (AUTO) 1.3 %; HGB - HEMOGLOBIN 10.8 g/dL (12.0-16.0); LYMPHOCYTES # (AUTO) 2.1 10^3/uL (1.5-3.5); LYMPHOCYTES % (AUTO) 27.4 %; MEAN CORPUSCULAR HEMOGLOBIN 30.9 pg (27.0-31.0); MEAN CORPUSCULAR HGB CONC 31.9 g/dL (32.0-36.0); MEAN CORPUSCULAR VOLUME 96.9 fL (81.0-99.0); MEAN PLATELET VOLUME 10.5 fL (7.9-10.8); MONOCYTES # (AUTO) 0.6 10^3/uL (0.0-1.0); MONOCYTES % (AUTO) 8.1 %; NEUTROPHILS # (AUTO) 4.8 10^3/uL (1.5-6.6); NEUTROPHILS % (AUTO) 61.7 %; PLT - PLATELET COUNT 183 10^3/uL (130-450); RED CELL DISTRIBUTION WIDTH 15.9 % (12.0-15.0); WHITE BLOOD COUNT 7.8 x10^3/uL (4.8-10.8)
[2019-07-12 18:53] LABS: ALBUMIN 3.9 g/dL (3.2-5.5); ALBUMIN/GLOBULIN RATIO 1.1 (1.0-2.2); BILIRUBIN,TOTAL 0.5 mg/dL (0.2-1.0); CALCIUM 8.6 mg/dL (8.5-10.3); CREATININE 1.3 mg/dL (0.4-1.0); MAGNESIUM 1.5 mg/dL (1.7-2.8); TOTAL PROTEIN 7.4 g/dL (6.7-8.2)
[2019-07-12] MEDS ORDERED: IOVERSOL 320 100 ML VIAL IVP ONE ×2 (19:02→19:51)
--- NOTE | 2019-07-12 19:59 | XRAY Report ---
Reason: dyspnea Procedure Date: 07/12/2019 Accession Number: [id number] / [id number] Procedure: XR - Chest 1 View X-Ray CPT Code: 88398 Final Report FULL RESULT: EXAM: CHEST RADIOGRAPHY EXAM DATE: 07/12/2019 07:33 PM. CLINICAL HISTORY: Dyspnea. COMPARISON: CHEST 1 VIEW 06/07/2018 6:09 PM. TECHNIQUE: 1 view. FINDINGS: Lungs/Pleura: There is perihilar bronchial wall thickening. No parenchymal consolidation or no pleural effusion or pneumothorax. Mediastinum: Within exam limitations, the cardiomediastinal contour is normal. Other: None. IMPRESSION: 1. Perihilar bronchial wall thickening. 2. No bacterial pneumonia. 3. The remainder of the chest radiography is unremarkable. RADIA
[2019-07-12 20:16] LABS: BILIRUBIN,URINE NEGATIVE (NEGATIVE); GLUCOSE, URINE (UA) NEGATIVE (NEGATIVE); KETONES,URINE (UA) NEGATIVE (NEGATIVE); LEUKOCYTE ESTERASE, URINE NEGATIVE (NEGATIVE); NITRITE,URINE NEGATIVE (NEGATIVE); OCCULT BLOOD,URINE NEGATIVE (NEGATIVE); PROTEIN,URINE NEGATIVE (NEGATIVE); UROBILINOGEN,URINE 0.2 (NORMAL) E.U./dL (NORMAL)
[2019-07-12 20:18] LABS: CLARITY,URINE CLEAR (CLEAR)
--- NOTE | 2019-07-12 20:23 | CT Report ---
Reason: L sided facial droop, L neck pain Procedure Date: 07/12/2019 Accession Number: [id number] / [id number] Procedure: CT - ANGIO NECK W CPT Code: Final Report FULL RESULT: EXAM: CT ANGIOGRAM HEAD AND NECK. CT SCAN HEAD WITHOUT AND WITH CONTRAST. EXAM DATE: 07/12/2019 07:22 PM. CLINICAL HISTORY: 74-year-old female. L sided facial droop. COMPARISON: ANGIO NECK W 07/12/2019 7:09 PM. TECHNIQUE: Routine axial helical CTA imaging was performed from the aortic arch through the [place]. Routine axial CT imaging of the head was performed prior to and following contrast administration. Reconstructions: Routine multiplanar 3D MIP reconstructions. IV contrast: 80 mL OPTIRAY 320. NASCET Criteria are used for stenosis measurements. In accordance with CT protocol optimization, one or more of the following dose reduction techniques were utilized for this exam: automated exposure control, adjustment of mA and/or KV based on patient size, or use of iterative reconstructive technique. FINDINGS: CT SCAN HEAD: Parenchyma: No intraparenchymal hemorrhage. No evidence of mass, midline shift, or CT findings of acute infarction. Villanueva-white differentiation is distinct. No abnormal enhancement of the postcontrast CT head. Extra-axial Spaces: Normal for age. No subdural or epidural collections identified. Ventricles: Normal in size and position. Sinuses and Orbits: Imaged paranasal sinuses, orbits, and mastoids show no significant abnormality. Bones: No evidence of fracture or calvarial defect. CT ANGIOGRAM EXTRACRANIAL CIRCULATION: Mild atherosclerosis aortic arch, no hemodynamically significant narrowing. Moderate atherosclerosis right subclavian artery origin, maximal narrowing likely greater than 70%. Right Carotid: Moderate atherosclerosis right carotid bifurcation and proximal cervical right ICA, maximal narrowing approximately 50%, moderate by NASCET criteria . The common carotid, internal carotid, and external carotid arteries are patent. No evidence of acute dissection Left Carotid: Moderate to severe atherosclerosis proximal cervical left ICA, maximal narrowing 60-70%, moderate by NASCET criteria . The common carotid, internal carotid, and external carotid arteries are patent. No evidence of acute dissection Vertebrals: The left vertebral artery is dominant. 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 Otherwise unremarkable. Middle Cerebral Artery: Patent without significant stenosis, aneurysm, or vascular malformation. Posterior Cerebral Artery: origin. Patent without significant stenosis, aneurysm, or vascular malformation. Posterior Communicating Artery: Patent without significant stenosis, aneurysm, or vascular malformation. LEFT: Internal Carotid artery: Severe atherosclerosis left carotid siphon, maximal narrowing 60-70%. Anterior Cerebral Artery: Patent without significant stenosis, aneurysm, or vascular malformation. Middle Cerebral Artery: Patent without significant stenosis, aneurysm, or vascular malformation. Posterior Cerebral Artery: Patent without significant stenosis, aneurysm, or vascular malformation. Posterior Communicating Artery: Patent without significant stenosis, aneurysm, or vascular malformation. CENTRAL: Anterior Communicating Artery: Patent. No aneurysm. The dural venous sinuses are patent. Other: The visualized lung apices are clear. Mild multilevel degenerative spondylosis, no acute fracture or traumatic subluxation. The visualized soft tissues of the neck demonstrate no acute abnormality. IMPRESSION: CT HEAD: 1. No evidence of acute intracranial abnormality on the noncontrast CT head. Specifically, no evidence of acute infarct, intracranial hemorrhage, mass effect, midline shift, or hydrocephalus. 2. No abnormal enhancement on the postcontrast CT head. CTA NECK: 1. No CTA evidence of large vessel occlusion, acute dissection, aneurysm, or vascular malformation within extracranial arteries. 2. Moderate atherosclerosis right subclavian artery origin, maximal narrowing likely greater than 70%. 3. Moderate atherosclerosis right carotid bifurcation and proximal cervical right ICA, maximal narrowing approximately 50%, moderate by NASCET criteria . 4. Moderate to severe atherosclerosis proximal cervical left ICA, maximal narrowing 60-70%, moderate by NASCET criteria . 5. Focal high-grade stenoses right SCA (for example series 13 image 73) CTA HEAD: 1. No CTA evidence of large vessel occlusion, acute dissection, aneurysm, or vascular malformation within intracranial arteries. 2. Severe atherosclerosis right carotid siphon, maximal narrowing greater than 70% 3. Severe atherosclerosis left carotid siphon, maximal narrowing 60-70%. OTHER: 1. No other acute findings. RADIA
--- NOTE | 2019-07-12 21:31 | HISTORY & PHYSICAL EXAMINATION ---
Chief Complaint - Chief Complaint Chief Complaint: right-sided weakness History of Present Illness - Admitted From Admitted From:: [facility] ED - History Obtained From Records Reviewed: yes History obtained from: patient Exam Limitations: patient is deaf - History of Present Illness HPI Comment/Other: This history was mostly obtained from the HPI of the ED physicians H&P. Communication is limited because patient is deaf. Our entire communication has been by writing back and forth. Patient is a 75-year-old female with history of diabetes mellitus type 2 on metformin glipizide and insulin, hyperlipidemia, depression, ongoing tobacco use who presented to the ED at the request of her stepdaughter with complaint of right-sided weakness. This has been going on for 2 days. It was more noticeable this morning when she got out of bed. She described an abrupt onset. She is still able to walk around but has been limping and was having to support herself on the feng. She was unable to lift and hold a drinking glass with her right hand and was using her left hand instead. It is reported that she denied any headache or head injury. However at the time of my interaction with her she reported some headache. She denies any previous occurrence of similar episodes. She reports some chest pain, dyspnea, abdominal discomfort. She denies fever or chills. Work-up in this ED included CT of the brain without contrast which was unremarkable. As a result of patient's symptoms she is being admitted for further work-up. History - Past Medical History Cardiovascular: reports: High cholesterol, Murmur Respiratory: reports: None Neuro: reports: None Endocrine/Autoimmune: reports: Type 2 diabetes GI: reports: None THRESHING DEPARTMENT SUPERVISOR: reports: None : reports: None HEENT: reports: Chronic hearing loss, Other Psych: reports: Depression Musculoskeletal: reports: Chronic back pain Derm: reports: None MRSA Hx?: No - Past Surgical History Ortho: reports: Spine surgery /THRESHING DEPARTMENT SUPERVISOR: reports: Hysterectomy - Family & Social History Family History: Mother: Cancer (unspecified), Father: Cancer, Brother: [place] Living arrangement: At home Living Situation: Alone Social History Notes: Patient smokes about half a pack of cigarettes daily. She has been smoking for 50 years. She denies any alcohol illicit drug use. - POLST Patient has POLST: No POLST Status: Full Code Meds/Allgy - Home Medications Home Medications: Ambulatory Orders Medication Instructions Recorded Confirmed Amitriptyline HCl 75 mg PO QPM 06/05/15 06/05/15 Aspirin [Aspir-Low] 81 mg PO DAILY 06/05/15 06/05/15 Glipizide 5 mg PO QPM 06/05/15 06/05/15 Insulin Glargine,Hum.rec.anlog 10 unit SQ QPM 06/05/15 06/05/15 [Lantus] Lovastatin 20 mg PO QPM 06/05/15 06/05/15 Metformin HCl 1,000 mg PO BID 06/05/15 06/05/15 Amitriptyline [Elavil] 10 mg PO 06/04/18 06/04/18 Amox/Clav 875/125 [Augmentin] 1 each PO Q12H #20 tablet 06/04/18 Diclofenac Sodium 25 mg PO 06/04/18 06/04/18 Hydrocodone/Acetaminophen 1 - 2 each PO Q6H PRN #14 tablet 06/04/18 [Hydrocodon-Acetaminophen 5-325] - Allergies Allergies/Adverse Reactions: Allergies Allergy/AdvReac Type Severity Reaction Status Date / Time No Known Drug Allergies Allergy Verified 07/12/19 18:01 Review of Systems - Constitutional Constitutional: denies: Fatigue, Fever, Chills - Eyes Eyes: denies: Pain, Vision loss, Dipolpia - Ears, Nose & Throat Ears, Nose & Throat: denies: Vertigo, Sore throat - Cardiovascular Cariovascular: reports: Palpitations, Chest pain. denies: Irregular heart rate, Edema, Lightheadedness, Syncope, Exertional dyspnea - Respiratory Respiratory: reports: SOB at rest. denies: Cough, Sputum production, Wheezing, SOB with exertion - Gastrointestinal Gastrointestinal: reports: Nausea. denies: Abdominal pain, Abdominal distention, Constipation, Diarrhea, Vomiting, Coffee grounds emesis - Genitourinary Genitourinary: denies: Dysuria, Frequency, Urgency, Hematuria - Musculoskeletal Musculoskeletal: denies: Muscle pain, Back pain, Muscle aches, Stiffness - Integumentary Integumentary: denies: Rash, Pruritis, Lesions, Dryness - Neurological Neurological: reports: Focal weakness (right-sided), Headache. denies: General weakness, Dizziness - Psychiatric Psychiatric: denies: Depression, Anxiety - Endocrine Endocrine: denies: Polyuria, Polydypsia - Hematologic/Lymphatic Hematologic/Lymphatic: denies: Anemia, Bruising, Petechiae Exam - Vital Signs Vital Signs: Vital Signs x48h Temp Pulse Resp BP Pulse Ox 07/12/19 21:10 141 H 16 106/81 H 96 07/12/19 20:14 132 H 17 138/73 H 98 07/12/19 20:10 17 07/12/19 18:40 110 H 24 117/98 H 94 07/12/19 18:02 36.5 C 70 30 H 105/71 97 - Physical Exam General Appearance: positive: No acute distress, Alert Eyes Bilateral: positive: PERRL, EOMI ENT: positive: No signs of dehydration Neck: positive: No JVD, Trachea midline Respiratory: positive: Chest non-tender, No respiratory distress, Breath sounds nml. negative: Wheezes, Rales, Rhonchi Cardiovascular: positive: Tachycardia Abdomen: positive: Non-tender, No organomegaly, Nml bowel sounds, No distention. negative: Guarding, Rebound Back: positive: Nml inspection Skin: positive: Color nml, No rash, Warm, Dry Extremities: positive: Non-tender, No pedal edema Neurologic/Psychiatric: positive: Oriented x3, Weakness (right sided). negative: Facial droop, Slurred/abnml speech Conclusion/Plan - Problem List (1) CVA (cerebral vascular accident) Conclusion/Plan: This is presumed in light of persistent right-sided weakness for the past 3 days. Neurochecks every shift. 2D echo, MRI of brain ordered. Lipid panel, hemoglobin A1c pending. Full dose aspirin daily. Atorvastatin 80 mg every afternoon. (2) Diabetes mellitus Conclusion/Plan: Will hold glipizide and metformin. Continue Lantus 10 units subcu every afternoon. Sliding scale insulin. Accu-Cheks nightly and AC Hemoglobin A1c pending Qualifiers: Diabetes mellitus type: type 2 (3) Hyperlipidemia Conclusion/Plan: Atorvastatin 80 mg p.o. nightly p.m. ordered. Lipid panel pending. (4) Depression Conclusion/Plan: On amytriptyline (5) Chronic back pain Conclusion/Plan: On norco - Lab Results Fish Bones: 07/13/19 06:15 07/13/19 06:15 Core Measures - Anticipated LOS I expect patient to be DC'd or transferred within 96 hours.: Yes - DVT/VTE - Prophylaxis VTE/DVT Device ordered at admit?: Yes - AMI - Statin at Admit Aspirin Prescribed on Admit: Yes
[2019-07-12] MEDS ORDERED: INSULIN GLARGINE 300 UNIT/3 ML PEN SUBQ SCH (22:45)
[2019-07-13] MEDS: SODIUM CHLORIDE 0.9% 1,000 ML IV SCH ×4 (00:01→18:55)
[2019-07-13] MEDS: SODIUM CHLORIDE FLUSH 0.9% 10 ML SYRINGE IVP SCH ×3 (00:01→17:05)
[2019-07-13] MEDS: SODIUM CHLORIDE FLUSH 0.9% 10 ML SYRINGE IVP PRN (02:19)
[2019-07-13] MEDS ORDERED: HYDROcod/ACETAM 5/325 MG TABLET PO PRN (02:33)
[2019-07-13] MEDS: PANTOPRAZOLE 40 MG TABLET PO SCH (06:02)
[2019-07-13 06:29] LABS: BASOPHILS # (AUTO) 0.1 10^3/uL (0.0-0.1); EOSINOPHILS # (AUTO) 0.1 10^3/uL (0.0-0.7); EOSINOPHILS % (AUTO) 1.3 %; HGB - HEMOGLOBIN 10.5 g/dL (12.0-16.0); LYMPHOCYTES # (AUTO) 2.3 10^3/uL (1.5-3.5); LYMPHOCYTES % (AUTO) 32.4 %; MEAN CORPUSCULAR HEMOGLOBIN 30.9 pg (27.0-31.0); MEAN CORPUSCULAR HGB CONC 31.6 g/dL (32.0-36.0); MEAN CORPUSCULAR VOLUME 97.6 fL (81.0-99.0); MEAN PLATELET VOLUME 10.4 fL (7.9-10.8); MONOCYTES # (AUTO) 0.5 10^3/uL (0.0-1.0); MONOCYTES % (AUTO) 6.5 %; NEUTROPHILS # (AUTO) 4.1 10^3/uL (1.5-6.6); NEUTROPHILS % (AUTO) 58.5 %; PLT - PLATELET COUNT 166 10^3/uL (130-450); RED CELL DISTRIBUTION WIDTH 15.8 % (12.0-15.0); WHITE BLOOD COUNT 6.9 x10^3/uL (4.8-10.8)
[2019-07-13 06:36] LABS: CALCIUM 8.4 mg/dL (8.5-10.3); CREATININE 1.2 mg/dL (0.4-1.0)
[2019-07-13 06:45] LABS: CHOL/HDL RATIO 3.4 (<4.4); CHOLESTEROL 143 mg/dL; HDL CHOLESTEROL 42 mg/dL; LDL CHOLESTEROL,CALCULATED 84 mg/dL; VLDL CHOLESTEROL 17 mg/dL
[2019-07-13] MEDS ORDERED: ASPIRIN 325 MG TABLET PO SCH (08:00)
[2019-07-13] MEDS: INSULIN ASPART 300 UNIT/3 ML PEN SUBQ SCH ×4 (08:08→20:57)
[2019-07-13] MEDS: ASPIRIN CHEW 81 MG TABLET PO SCH (08:09)
[2019-07-13] MEDS: APIXABAN 5 MG TABLET PO SCH ×2 (08:09→21:22)
[2019-07-13] MEDS: SODIUM CHLORIDE 0.9% 500 ML IV ONE ×2 (08:10→08:16)
[2019-07-13] MEDS: NICOTINE 7 MG PATCH TOP SCH (08:16)
[2019-07-13] MEDS ORDERED: IPRATROPIUM/ALBUTEROL 3 ML NEB INH PRN (09:00)
[2019-07-13 09:22] LABS: HB2 TOTAL 10.8 g/dL; HEMOGLOBIN A1C 0.55 g/dL; HEMOGLOBIN A1C % 6.8 % (4.6-6.2)
--- NOTE | 2019-07-13 10:12 | PHARMACY PROGRESS NOTE ---
- Best Possible Medication History Admit Date and Time: 07/12/192118 Processed by: Pharmacy Medication History completed: Yes Patient Interview: Completed Secondary Source(s): Pharmacy records, Insurance records As the person ultimately responsible for medication therapy, providers are able to order a medication from an existing home medication list in [facility] via the "Reconcile Routine" prior to Confirmation of that medication by production support manager. Such practice is discouraged except when the physician, in their clinical judgment, deems that a medical need exists for a medication without regard to previous use.
--- NOTE | 2019-07-13 13:03 | MRI Report ---
Reason: right sided weakness Procedure Date: 07/13/2019 Accession Number: [id number] / [id number] Procedure: MRI - Brain W/O CPT Code: Final Report FULL RESULT: EXAM: MRI BRAIN WITHOUT CONTRAST EXAM DATE: 07/13/2019 11:44 AM. CLINICAL HISTORY: Right-sided weakness. Symptoms started 3 days ago, resolving. COMPARISON: CT angiogram head and neck w/wo 07/12/2019 7:09 PM. TECHNIQUE: Multiplanar, multisequence T1-weighted and fluid-sensitive MR sequences of the brain were performed. Sequences optimized for routine evaluation. Other: None. IV Contrast: None. FINDINGS: Brain Volume: Normal for age. Parenchyma/Dura: No mass, acute infarct or hemorrhage. Mild confluent periventricular T2/FLAIR bright white matter signal is seen in the cerebral hemispheres. Mild scattered punctate foci are seen within the brainstem and woods radiata. No cortical signal abnormality. Ventricles/Cisterns: No hydrocephalus. No abnormal extra-axial fluid collection or hemorrhage. Orbits: Symmetric and unremarkable. Sella Turc[place]: The pituitary gland, cavernous sinuses, suprasellar cistern and optic chiasm are unremarkable. IAC: Symmetric and unremarkable. Vasculature: Normal signal flow void is seen in the major arterial structures at the skull base. Sinuses: No acute appearing sinus disease. Bones: No focal pathologic appearing marrow signal changes. Other: The visualized nasopharynx and infratemporal fossa are unremarkable. IMPRESSION: 1. No acute intracranial abnormality. 2. Mild T2/FLAIR bright white matter signal is seen in the brainstem and periventricular region of the cerebral hemispheres. This is nonspecific. This can be seen secondary to small vessel ischemic change. RADIA
[2019-07-13] MEDS ORDERED: METOPROLOL 5 MG/5 ML VIAL IVP PRN (13:12)
[2019-07-13] MEDS ORDERED: DIGOXIN 500 MCG/2 ML AMP IVP SCH (13:18)
[2019-07-13] MEDS ORDERED: GI COCKTAIL 120 ML BOTTLE PO PRN (14:21)
--- NOTE | 2019-07-13 14:21 | PROVIDER PROGRESS NOTE ---
Subjective - Prog Note Date Prog Note Date: 07/13/19 - Subjective Pt reports feeling: Improved Subjective: unfortunately pt is deaf, she can not hear anything. we has to communicate with writing on paper. pt report she feel her weakness is becoming much better. she report right side strength return her baseline. she denies fever, chill, shortness of breath, palpitation. she report mild producible chest pain, then subside. twice troponin are negative. Current Medications - Current Medications Current Medications: Active Medications Albuterol/Ipratropium (Duoneb) 3 ml INH RTQ4H PRN PRN Reason: Wheezing Last Admin: 07/13/19 09:20 Dose: 3 ml Apixaban (Eliquis) 5 mg PO BID [facility] Last Admin: 07/13/19 08:09 Dose: 5 mg Aspirin ([place] Aspirin) 81 mg PO DAILY [facility] Last Admin: 07/13/19 08:09 Dose: 81 mg Atorvastatin Calcium (Lipitor) 80 mg PO QPM DENISE Digoxin (Lanoxin Inj) 250 mcg IVP ONCE DENISE Stop: 07/13/19 14:45 Digoxin (Lanoxin) 125 mcg PO DAILY [facility] Sodium Chloride (Normal Saline 0.9%) 1,000 mls @ 83.333 mls/hr IV .Q12H [facility] Last Admin: 07/13/19 13:42 Dose: Not Given Insulin Aspart (Novolog) 1 - 5 unit SUBQ 0800,1200,1700,2100 [facility]; Protocol Last Admin: 07/13/19 12:21 Dose: Not Given Insulin Glargine (Lantus Solostar) 10 unit SUBQ QPM [facility] Last Admin: 07/13/19 00:02 Dose: 10 unit Metoprolol Tartrate (Lopressor Inj) 5 mg IVP Q6H PRN PRN Reason: Tachycardia Multi-Ingredient Mouthwash/Gargle () 30 ml PO Q4H PRN PRN Reason: Abdominal Pain Nicotine (Nicoderm) 1 patch TOP DAILY [facility] Last Admin: 07/13/19 08:16 Dose: 1 patch Pantoprazole Sodium (Protonix) 40 mg PO QDAC DENISE Last Admin: 07/13/19 06:02 Dose: 40 mg Sodium Chloride (Normal Saline Flush 0.9%) 10 ml IVP PRN PRN PRN Reason: NEEDED PER PROVIDER ORDERS Last Admin: 07/13/19 02:19 Dose: 20 ml Sodium Chloride (Normal Saline Flush 0.9%) 10 ml IVP 0100,0900,1700 DENISE Last Admin: 07/13/19 09:46 Dose: 10 ml Lovastatin 20 mg PO QPM 06/05/15 Amitriptyline HCl 100 mg PO QPM 07/13/19 Aspirin [Aspirin EC] 81 mg PO DAILY 07/13/[address] [Voltaren] 75 mg PO BID 07/13/19 Glipizide [Glipizide Xl] 10 mg PO DAILY 07/13/19 Metformin HCl 1,000 mg PO BIDWM 07/13/19 Objective - Vital Signs/Intake & Output Vital Signs: Vital Signs x48h Temp Pulse Pulse Resp BP Pulse Ox 07/13/19 13:00 36.8 C 150 H 20 97/62 94 07/13/19 09:20 88 16 07/13/19 08:31 36.6 C 85 18 95 07/13/19 07:45 36.6 C 121 H 20 91/62 95 07/13/19 07:30 36.6 C 121 H 20 62 95 Intake & Output: Intake & Output 07/10/19 07/11/19 07/12/19 07/13/19 23:59 23:59 23:59 23:59 Intake Total 120 1645.771 Balance 120 1645.771 - Objective General Appearance: positive: No acute distress, Alert. negative: Lethargic Eyes Bilateral: positive: Normal inspection, PERRL, No lid inflammation ENT: positive: ENT inspection nml, Pharynx nml, No signs of dehydration. negative: Purulent nasal drainage Neck: positive: Nml inspection, Thyroid nml, No JVD, Trachea midline. negative: Thyromegaly, Stiff neck, Tracheal deviation Respiratory: positive: Chest non-tender, No respiratory distress, Breath sounds nml. negative: Wheezes, Rales, Rhonchi Cardiovascular: positive: No murmur, No gallop, Irregularly irregular, Tachycardia. negative: Bradycardia, Systolic murmur, Diastolic murmur Peripheral Pulses: 2+ Radial (R), 2+ Radial (L) Abdomen: positive: Non-tender, No organomegaly, Nml bowel sounds, No distention. negative: Tenderness, Guarding, Rebound Back: positive: Nml inspection. negative: CVA tenderness (R), CVA tenderness (L) Skin: positive: Color nml, No rash, Warm, Dry. negative: Cyanosis, Diaphoresis, Pallor Extremities: positive: Non-tender, Nml appearance. negative: Calf tenderness, Lázaro's sign/cords Neurologic/Psychiatric: positive: Oriented x3, Sensation nml, Weakness (slight weakness on right lower extremity). negative: Sensory loss, Facial droop - Lab Results Fish Bones: 07/13/19 06:15 07/13/19 06:15 Other Labs: Lab Results x24hrs 07/13/19 07/13/19 07/13/19 Range/Units 13:29 12:08 07:26 WBC (4.8-10.8) x10^3/uL RBC (4.20-5.40) 10^6/uL Hgb (12.0-16.0) g/dL Hct (37.0-47.0) % MCV (81.0-99.0) fL MCH (27.0-31.0) pg MCHC (32.0-36.0) g/dL RDW (12.0-15.0) % Plt Count (130-450) 10^3/uL MPV (7.9-10.8) fL Neut # (Auto) (1.5-6.6) 10^3/uL Lymph # (Auto) (1.5-3.5) 10^3/uL [place] # (Auto) (0.0-1.0) 10^3/uL Eos # (Auto) (0.0-0.7) 10^3/uL Baso # (Auto) (0.0-0.1) 10^3/uL Absolute Nucleated RBC x10^3/uL Nucleated RBC % /100WBC Sodium (135-145) mmol/L Potassium (3.5-5.0) mmol/L Chloride (101-111) mmol/L Carbon Dioxide (21-32) mmol/L Anion Gap (6-13) BUN (6-20) mg/dL Creatinine (0.4-1.0) mg/dL Estimated GFR (MDRD) (>89) Glucose (70-100) mg/dL POC Whole Bld Glucose 99 88 (70 - 100) mg/dL Glycated Hemoglobin (4.6-6.2) % Estim Average Glucose (70-100) Calcium (8.5-10.3) mg/dL Magnesium (1.7-2.8) mg/dL Total Bilirubin (0.2-1.0) mg/dL AST (10-42) IU/L ALT (10-60) IU/L Alkaline Phosphatase (42-121) IU/L Troponin I High Sens 12.2 (2.3-14.8) ng/L B-Natriuretic Peptide (5-100) pg/mL Total Protein (6.7-8.2) g/dL Albumin (3.2-5.5) g/dL Globulin (2.1-4.2) g/dL Albumin/Globulin Ratio (1.0-2.2) Triglycerides ( - 149) mg/dL Cholesterol ( - 199) mg/dL LDL Cholesterol, Calc ( - 129) mg/dL VLDL Cholesterol mg/dL HDL Cholesterol (60 - ) mg/dL LDL/HDL Ratio (<4.4) Cholesterol/HDL Ratio (<4.4) Lipase (22-51) U/L Urine Color Urine Clarity (CLEAR) Urine pH (5.0-7.5) PH Ur Specific [place] (1.002-1.030) Urine Protein (NEGATIVE) mg/dL Urine Glucose (UA) (NEGATIVE) mg/dL Urine Ketones (NEGATIVE) mg/dL Urine Occult Blood (NEGATIVE) Urine Nitrite (NEGATIVE) Urine Bilirubin (NEGATIVE) Urine Urobilinogen (NORMAL) E.U./dL Ur Leukocyte Esterase (NEGATIVE) Ur Microscopic Review Urine Culture Comments 07/13/19 07/13/19 07/13/19 Range/Units 06:15 06:15 06:15 WBC (4.8-10.8) x10^3/uL RBC (4.20-5.40) 10^6/uL Hgb (12.0-16.0) g/dL Hct (37.0-47.0) % MCV (81.0-99.0) fL MCH (27.0-31.0) pg MCHC (32.0-36.0) g/dL RDW (12.0-15.0) % Plt Count (130-450) 10^3/uL MPV (7.9-10.8) fL Neut # (Auto) (1.5-6.6) 10^3/uL Lymph # (Auto) (1.5-3.5) 10^3/uL [place] # (Auto) (0.0-1.0) 10^3/uL Eos # (Auto) (0.0-0.7) 10^3/uL Baso # (Auto) (0.0-0.1) 10^3/uL Absolute Nucleated RBC x10^3/uL Nucleated RBC % /100WBC Sodium (135-145) mmol/L Potassium (3.5-5.0) mmol/L Chloride (101-111) mmol/L Carbon Dioxide (21-32) mmol/L Anion Gap (6-13) BUN (6-20) mg/dL Creatinine (0.4-1.0) mg/dL Estimated GFR (MDRD) (>89) Glucose (70-100) mg/dL POC Whole Bld Glucose (70 - 100) mg/dL Glycated Hemoglobin 6.8 H (4.6-6.2) % Estim Average Glucose 148 H (70-100) Calcium (8.5-10.3) mg/dL Magnesium (1.7-2.8) mg/dL Total Bilirubin (0.2-1.0) mg/dL AST (10-42) IU/L ALT (10-60) IU/L Alkaline Phosphatase (42-121) IU/L Troponin I High Sens 14.4 (2.3-14.8) ng/L B-Natriuretic Peptide (5-100) pg/mL Total Protein (6.7-8.2) g/dL Albumin (3.2-5.5) g/dL Globulin (2.1-4.2) g/dL Albumin/Globulin Ratio (1.0-2.2) Triglycerides 84 ( - 149) mg/dL Cholesterol 143 ( - 199) mg/dL LDL Cholesterol, Calc 84 ( - 129) mg/dL VLDL Cholesterol 17 mg/dL HDL Cholesterol 42 L (60 - ) mg/dL LDL/HDL Ratio 2.0 (<4.4) Cholesterol/HDL Ratio 3.4 (<4.4) Lipase (22-51) U/L Urine Color Urine Clarity (CLEAR) Urine pH (5.0-7.5) PH Ur Specific [place] (1.002-1.030) Urine Protein (NEGATIVE) mg/dL Urine Glucose (UA) (NEGATIVE) mg/dL Urine Ketones (NEGATIVE) mg/dL Urine Occult Blood (NEGATIVE) Urine Nitrite (NEGATIVE) Urine Bilirubin (NEGATIVE) Urine Urobilinogen (NORMAL) E.U./dL Ur Leukocyte Esterase (NEGATIVE) Ur Microscopic Review Urine Culture Comments 07/13/19 07/13/19 07/13/19 Range/Units 06:15 06:15 00:25 WBC 6.9 (4.8-10.8) x10^3/uL RBC 3.40 L (4.20-5.40) 10^6/uL Hgb 10.5 L (12.0-16.0) g/dL Hct 33.2 L (37.0-47.0) % MCV 97.6 (81.0-99.0) fL MCH 30.9 (27.0-31.0) pg MCHC 31.6 L (32.0-36.0) g/dL RDW 15.8 H (12.0-15.0) % Plt Count 166 (130-450) 10^3/uL MPV 10.4 (7.9-10.8) fL Neut # (Auto) 4.1 (1.5-6.6) 10^3/uL Lymph # (Auto) 2.3 (1.5-3.5) 10^3/uL [place] # (Auto) 0.5 (0.0-1.0) 10^3/uL Eos # (Auto) 0.1 (0.0-0.7) 10^3/uL Baso # (Auto) 0.1 (0.0-0.1) 10^3/uL Absolute Nucleated RBC 0.00 x10^3/uL Nucleated RBC % 0.0 /100WBC Sodium 138 (135-145) mmol/L Potassium 4.4 (3.5-5.0) mmol/L Chloride 105 (101-111) mmol/L Carbon Dioxide 25 (21-32) mmol/L Anion Gap 8.0 (6-13) BUN 20 (6-20) mg/dL Creatinine 1.2 H (0.4-1.0) mg/dL Estimated GFR (MDRD) 44 L (>89) Glucose 100 (70-100) mg/dL POC Whole Bld Glucose (70 - 100) mg/dL Glycated Hemoglobin (4.6-6.2) % Estim Average Glucose (70-100) Calcium 8.4 L (8.5-10.3) mg/dL Magnesium (1.7-2.8) mg/dL Total Bilirubin (0.2-1.0) mg/dL AST (10-42) IU/L ALT (10-60) IU/L Alkaline Phosphatase (42-121) IU/L Troponin I High Sens 13.9 (2.3-14.8) ng/L B-Natriuretic Peptide (5-100) pg/mL Total Protein (6.7-8.2) g/dL Albumin (3.2-5.5) g/dL Globulin (2.1-4.2) g/dL Albumin/Globulin Ratio (1.0-2.2) Triglycerides ( - 149) mg/dL Cholesterol ( - 199) mg/dL LDL Cholesterol, Calc ( - 129) mg/dL VLDL Cholesterol mg/dL HDL Cholesterol (60 - ) mg/dL LDL/HDL Ratio (<4.4) Cholesterol/HDL Ratio (<4.4) Lipase (22-51) U/L Urine Color Urine Clarity (CLEAR) Urine pH (5.0-7.5) PH Ur Specific [place] (1.002-1.030) Urine Protein (NEGATIVE) mg/dL Urine Glucose (UA) (NEGATIVE) mg/dL Urine Ketones (NEGATIVE) mg/dL Urine Occult Blood (NEGATIVE) Urine Nitrite (NEGATIVE) Urine Bilirubin (NEGATIVE) Urine Urobilinogen (NORMAL) E.U./dL Ur Leukocyte Esterase (NEGATIVE) Ur Microscopic Review Urine Culture Comments 07/12/19 07/12/19 07/12/19 Range/Units 23:54 20:05 18:33 WBC (4.8-10.8) x10^3/uL RBC (4.20-5.40) 10^6/uL Hgb (12.0-16.0) g/dL Hct (37.0-47.0) % MCV (81.0-99.0) fL MCH (27.0-31.0) pg MCHC (32.0-36.0) g/dL RDW (12.0-15.0) % Plt Count (130-450) 10^3/uL MPV (7.9-10.8) fL Neut # (Auto) (1.5-6.6) 10^3/uL Lymph # (Auto) (1.5-3.5) 10^3/uL [place] # (Auto) (0.0-1.0) 10^3/uL Eos # (Auto) (0.0-0.7) 10^3/uL Baso # (Auto) (0.0-0.1) 10^3/uL Absolute Nucleated RBC x10^3/uL Nucleated RBC % /100WBC Sodium (135-145) mmol/L Potassium (3.5-5.0) mmol/L Chloride (101-111) mmol/L Carbon Dioxide (21-32) mmol/L Anion Gap (6-13) BUN (6-20) mg/dL Creatinine (0.4-1.0) mg/dL Estimated GFR (MDRD) (>89) Glucose (70-100) mg/dL POC Whole Bld Glucose 150 H (70 - 100) mg/dL Glycated Hemoglobin (4.6-6.2) % Estim Average Glucose (70-100) Calcium (8.5-10.3) mg/dL Magnesium (1.7-2.8) mg/dL Total Bilirubin (0.2-1.0) mg/dL AST (10-42) IU/L ALT (10-60) IU/L Alkaline Phosphatase (42-121) IU/L Troponin I High Sens (2.3-14.8) ng/L B-Natriuretic Peptide 489 H (5-100) pg/mL Total Protein (6.7-8.2) g/dL Albumin (3.2-5.5) g/dL Globulin (2.1-4.2) g/dL Albumin/Globulin Ratio (1.0-2.2) Triglycerides ( - 149) mg/dL Cholesterol ( - 199) mg/dL LDL Cholesterol, Calc ( - 129) mg/dL VLDL Cholesterol mg/dL HDL Cholesterol (60 - ) mg/dL LDL/HDL Ratio (<4.4) Cholesterol/HDL Ratio (<4.4) Lipase (22-51) U/L Urine Color YELLOW Urine Clarity CLEAR (CLEAR) Urine pH 5.0 (5.0-7.5) PH Ur Specific [place] 1.020 (1.002-1.030) Urine Protein NEGATIVE (NEGATIVE) mg/dL Urine Glucose (UA) NEGATIVE (NEGATIVE) mg/dL Urine Ketones NEGATIVE (NEGATIVE) mg/dL Urine Occult Blood NEGATIVE (NEGATIVE) Urine Nitrite NEGATIVE (NEGATIVE) Urine Bilirubin NEGATIVE (NEGATIVE) Urine Urobilinogen 0.2 (NORMAL) (NORMAL) E.U./dL Ur Leukocyte Esterase NEGATIVE (NEGATIVE) Ur Microscopic Review NOT INDICATED Urine Culture Comments NOT INDICATED 07/12/19 07/12/19 07/12/19 Range/Units 18:33 18:33 18:33 WBC 7.8 (4.8-10.8) x10^3/uL RBC 3.50 L (4.20-5.40) 10^6/uL Hgb 10.8 L (12.0-16.0) g/dL Hct 33.9 L (37.0-47.0) % MCV 96.9 (81.0-99.0) fL MCH 30.9 (27.0-31.0) pg MCHC 31.9 L (32.0-36.0) g/dL RDW 15.9 H (12.0-15.0) % Plt Count 183 (130-450) 10^3/uL MPV 10.5 (7.9-10.8) fL Neut # (Auto) 4.8 (1.5-6.6) 10^3/uL Lymph # (Auto) 2.1 (1.5-3.5) 10^3/uL [place] # (Auto) 0.6 (0.0-1.0) 10^3/uL Eos # (Auto) 0.1 (0.0-0.7) 10^3/uL Baso # (Auto) 0.1 (0.0-0.1) 10^3/uL Absolute Nucleated RBC 0.00 x10^3/uL Nucleated RBC % 0.0 /100WBC Sodium 137 (135-145) mmol/L Potassium 4.5 (3.5-5.0) mmol/L Chloride 103 (101-111) mmol/L Carbon Dioxide 25 (21-32) mmol/L Anion Gap 9.0 (6-13) BUN 22 H (6-20) mg/dL Creatinine 1.3 H (0.4-1.0) mg/dL Estimated GFR (MDRD) 40 L (>89) Glucose 120 H (70-100) mg/dL POC Whole Bld Glucose (70 - 100) mg/dL Glycated Hemoglobin (4.6-6.2) % Estim Average Glucose (70-100) Calcium 8.6 (8.5-10.3) mg/dL Magnesium 1.5 L (1.7-2.8) mg/dL Total Bilirubin 0.5 (0.2-1.0) mg/dL AST 19 (10-42) IU/L ALT 27 (10-60) IU/L Alkaline Phosphatase 45 (42-121) IU/L Troponin I High Sens 11.7 (2.3-14.8) ng/L B-Natriuretic Peptide (5-100) pg/mL Total Protein 7.4 (6.7-8.2) g/dL Albumin 3.9 (3.2-5.5) g/dL Globulin 3.5 (2.1-4.2) g/dL Albumin/Globulin Ratio 1.1 (1.0-2.2) Triglycerides ( - 149) mg/dL Cholesterol ( - 199) mg/dL LDL Cholesterol, Calc ( - 129) mg/dL VLDL Cholesterol mg/dL HDL Cholesterol (60 - ) mg/dL LDL/HDL Ratio (<4.4) Cholesterol/HDL Ratio (<4.4) Lipase 25 (22-51) U/L Urine Color Urine Clarity (CLEAR) Urine pH (5.0-7.5) PH Ur Specific [place] (1.002-1.030) Urine Protein (NEGATIVE) mg/dL Urine Glucose (UA) (NEGATIVE) mg/dL Urine Ketones (NEGATIVE) mg/dL Urine Occult Blood (NEGATIVE) Urine Nitrite (NEGATIVE) Urine Bilirubin (NEGATIVE) Urine Urobilinogen (NORMAL) E.U./dL Ur Leukocyte Esterase (NEGATIVE) Ur Microscopic Review Urine Culture Comments 07/12/19 Range/Units 18:11 WBC (4.8-10.8) x10^3/uL RBC (4.20-5.40) 10^6/uL Hgb (12.0-16.0) g/dL Hct (37.0-47.0) % MCV (81.0-99.0) fL MCH (27.0-31.0) pg MCHC (32.0-36.0) g/dL RDW (12.0-15.0) % Plt Count (130-450) 10^3/uL MPV (7.9-10.8) fL Neut # (Auto) (1.5-6.6) 10^3/uL Lymph # (Auto) (1.5-3.5) 10^3/uL [place] # (Auto) (0.0-1.0) 10^3/uL Eos # (Auto) (0.0-0.7) 10^3/uL Baso # (Auto) (0.0-0.1) 10^3/uL Absolute Nucleated RBC x10^3/uL Nucleated RBC % /100WBC Sodium (135-145) mmol/L Potassium (3.5-5.0) mmol/L Chloride (101-111) mmol/L Carbon Dioxide (21-32) mmol/L Anion Gap (6-13) BUN (6-20) mg/dL Creatinine (0.4-1.0) mg/dL Estimated GFR (MDRD) (>89) Glucose (70-100) mg/dL POC Whole Bld Glucose 123 H (70 - 100) mg/dL Glycated Hemoglobin (4.6-6.2) % Estim Average Glucose (70-100) Calcium (8.5-10.3) mg/dL Magnesium (1.7-2.8) mg/dL Total Bilirubin (0.2-1.0) mg/dL AST (10-42) IU/L ALT (10-60) IU/L Alkaline Phosphatase (42-121) IU/L Troponin I High Sens (2.3-14.8) ng/L B-Natriuretic Peptide (5-100) pg/mL Total Protein (6.7-8.2) g/dL Albumin (3.2-5.5) g/dL Globulin (2.1-4.2) g/dL Albumin/Globulin Ratio (1.0-2.2) Triglycerides ( - 149) mg/dL Cholesterol ( - 199) mg/dL LDL Cholesterol, Calc ( - 129) mg/dL VLDL Cholesterol mg/dL HDL Cholesterol (60 - ) mg/dL LDL/HDL Ratio (<4.4) Cholesterol/HDL Ratio (<4.4) Lipase (22-51) U/L Urine Color Urine Clarity (CLEAR) Urine pH (5.0-7.5) PH Ur Specific [place] (1.002-1.030) Urine Protein (NEGATIVE) mg/dL Urine Glucose (UA) (NEGATIVE) mg/dL Urine Ketones (NEGATIVE) mg/dL Urine Occult Blood (NEGATIVE) Urine Nitrite (NEGATIVE) Urine Bilirubin (NEGATIVE) Urine Urobilinogen (NORMAL) E.U./dL Ur Leukocyte Esterase (NEGATIVE) Ur Microscopic Review Urine Culture Comments ABX Reporting Has patient been on IV antibiotics over the past 48 hours?: No Sepsis Event Note (H) - Evaluation Current Stage of Sepsis: Ruled out Assessment/Plan - Problem List (1) Stroke-like symptom Impression: pt report her strength is return to her baseline. PT/OT will evaluate and treat for pt. MRI of brain is unremarkable. continue aspirin, eliquis and statin. pt has moderate atherosclerosis at right carotid bifurcation and moderate to severe atherosclerosis at cervical left ICA. I discussed care with pt, pt agree and want to seek vascular surgeon as out-pt. (2) new Atrial flutter with RVR EKG reveals a flutter/fib at HR 140-160. but pt denies palpitation or distress. pt is asymptomatic. pt's BP is lower. pt was order IV of digoxin. pt is on eliquis. pt has ChADS score 5 continue tele and vital monitor (3)hypotension pt's SBP is around at 90-100. hold blood pressure meds. order one bolus of 500 NS IVF. pt is asymptomatic for hypotension. continue vital monitor (4)systolic and diastolic heart failure ECHO pt has EF at 40-50% and mild diastolic heart failure. pt's BP is lower now. hold BP meds now, continue digoxin (5) Diabetes mellitus A1C is 6.8, continue slide scale, hypoglycemia protocol (6) Hyperlipidemia Atorvastatin 80 mg p.o. nightly p.m. ordered. Lipid panel pending. (7) Depression Conclusion/Plan: On amytriptyline (8) Chronic back pain Conclusion/Plan: On norco
[2019-07-13] MEDS: ATORVASTATIN 40 MG TABLET PO SCH (21:22)
[2019-07-14] MEDS: SODIUM CHLORIDE FLUSH 0.9% 10 ML SYRINGE IVP SCH ×3 (00:20→16:44)
[2019-07-14 05:22] LABS: BASOPHILS # (AUTO) 0.1 10^3/uL (0.0-0.1); BASOPHILS % (AUTO) 0.9 %; EOSINOPHILS # (AUTO) 0.1 10^3/uL (0.0-0.7); EOSINOPHILS % (AUTO) 1.3 %; HGB - HEMOGLOBIN 9.9 g/dL (12.0-16.0); LYMPHOCYTES # (AUTO) 1.7 10^3/uL (1.5-3.5); LYMPHOCYTES % (AUTO) 21.6 %; MEAN CORPUSCULAR HEMOGLOBIN 29.7 pg (27.0-31.0); MEAN CORPUSCULAR VOLUME 95.8 fL (81.0-99.0); MEAN PLATELET VOLUME 10.9 fL (7.9-10.8); MONOCYTES # (AUTO) 0.5 10^3/uL (0.0-1.0); MONOCYTES % (AUTO) 6.1 %; NEUTROPHILS # (AUTO) 5.4 10^3/uL (1.5-6.6); NEUTROPHILS % (AUTO) 69.7 %; PLT - PLATELET COUNT 161 10^3/uL (130-450); RED BLOOD COUNT 3.33 10^6/uL (4.20-5.40); RED CELL DISTRIBUTION WIDTH 15.6 % (12.0-15.0); WHITE BLOOD COUNT 7.7 x10^3/uL (4.8-10.8)
[2019-07-14 05:30] LABS: CALCIUM 8.2 mg/dL (8.5-10.3); CREATININE 1.1 mg/dL (0.4-1.0)
[2019-07-14] MEDS: SODIUM CHLORIDE 0.9% 1,000 ML IV SCH (06:28)
[2019-07-14] MEDS: PANTOPRAZOLE 40 MG TABLET PO SCH (06:28)
[2019-07-14] MEDS: INSULIN ASPART 300 UNIT/3 ML PEN SUBQ SCH ×4 (08:25→20:38)
[2019-07-14] MEDS: NICOTINE 7 MG PATCH TOP SCH (08:25)
[2019-07-14] MEDS: ASPIRIN CHEW 81 MG TABLET PO SCH (08:25)
[2019-07-14] MEDS: APIXABAN 5 MG TABLET PO SCH ×2 (08:25→20:37)
[2019-07-14] MEDS ORDERED: DIGOXIN 125 MCG TABLET PO SCH (09:00)
[2019-07-14] MEDS: DIGOXIN 500 MCG/2 ML AMP IVP SCH (09:55)
[2019-07-14] MEDS: SODIUM CHLORIDE FLUSH 0.9% 10 ML SYRINGE IVP PRN (09:57)
[2019-07-14] MEDS ORDERED: METOPROLOL TARTRATE 25 MG TABLET PO SCH ×2 (10:00)
[2019-07-14] MEDS ORDERED: lisinopriL 5 MG TABLET PO SCH (11:00)
[2019-07-14] MEDS ORDERED: METOPROLOL 5 MG/5 ML VIAL IVP SCH (12:00)
[2019-07-14] MEDS: diltiaZEM 30 MG TABLET PO SCH ×2 (14:36→17:13)
--- NOTE | 2019-07-14 14:48 | PROVIDER PROGRESS NOTE ---
Subjective - Prog Note Date Prog Note Date: 07/14/19 - Subjective Pt reports feeling: Improved Subjective: pt report she feel better. pt can speak and she understood. she report her weakness on right side has great improvement. However pt's HR is still high at 120-140 arrange. she denies chest pain, palpitation. I called pt's son, he report her mother ate lots of fast food and smoke cigarette, pt had congenital deafness. Current Medications - Current Medications Current Medications: Active Medications Albuterol/Ipratropium (Duoneb) 3 ml INH RTQ4H PRN PRN Reason: Wheezing Last Admin: 07/13/19 09:20 Dose: 3 ml Apixaban (Eliquis) 5 mg PO BID [facility] Last Admin: 07/14/19 08:25 Dose: 5 mg Aspirin ([facility] Aspirin) 81 mg PO DAILY [facility] Last Admin: 07/14/19 08:25 Dose: 81 mg Atorvastatin Calcium (Lipitor) 80 mg PO QPM [facility] Last Admin: 07/13/19 21:22 Dose: 80 mg Digoxin (Lanoxin Inj) 125 mcg IVP DAILY [facility] Last Admin: 07/14/19 09:55 Dose: 125 mcg Diltiazem HCl (Cardizem) 30 mg PO Q6HR [facility] Last Admin: 07/14/19 14:36 Dose: 30 mg Insulin Aspart (Novolog) 1 - 5 unit SUBQ 0800,1200,1700,2100 [facility]; Protocol Last Admin: 07/14/19 12:51 Dose: 1 unit Metoprolol Tartrate (Lopressor Inj) 5 mg IVP Q6H PRN PRN Reason: Tachycardia Multi-Ingredient Mouthwash/Gargle () 30 ml PO Q4H PRN PRN Reason: Abdominal Pain Nicotine (Nicoderm) 1 patch TOP DAILY [facility] Last Admin: 07/14/19 08:25 Dose: 1 patch Pantoprazole Sodium (Protonix) 40 mg PO QDAC [facility] Last Admin: 07/14/19 06:28 Dose: 40 mg Sodium Chloride (Normal Saline Flush 0.9%) 10 ml IVP PRN PRN PRN Reason: NEEDED PER PROVIDER ORDERS Last Admin: 07/14/19 09:57 Dose: 20 ml Sodium Chloride (Normal Saline Flush 0.9%) 10 ml IVP 0100,0900,1700 [facility] Last Admin: 07/14/19 09:57 Dose: 10 ml Lovastatin 20 mg PO QPM 06/05/15 Amitriptyline HCl 100 mg PO QPM 07/13/19 Aspirin [Aspirin EC] 81 mg PO DAILY 07/13/[address] [Voltaren] 75 mg PO BID 07/13/19 Glipizide [Glipizide Xl] 10 mg PO DAILY 07/13/19 Metformin HCl 1,000 mg PO BIDWM 07/13/19 Objective - Vital Signs/Intake & Output Vital Signs: Vital Signs x48h Temp Pulse Pulse Resp BP BP BP 07/14/19 14:36 104/56 L 07/14/19 13:24 07/14/19 13:00 36.2 C L 140 H 18 104/56 L 103/88 H 07/14/19 12:21 91/66 07/14/19 10:17 136/112 H 07/14/19 10:15 07/14/19 09:55 126 H 07/14/19 08:59 119 H 07/14/19 08:00 36.4 C L 116 H 18 110/84 H BP Pulse Ox Pulse Ox 07/14/19 14:36 07/14/19 13:24 136/112 H 07/14/19 13:00 97 07/14/19 12:21 07/14/19 10:17 07/14/19 10:15 136/112 H 94 07/14/19 09:55 07/14/19 08:59 07/14/19 08:00 97 Intake & Output: Intake & Output 07/11/19 07/12/19 07/13/19 07/14/19 23:59 23:59 23:59 23:59 Intake Total 120 2002.300 1498.25 Balance 120 2002.300 1498.25 - Objective General Appearance: positive: No acute distress, Alert. negative: Lethargic Eyes Bilateral: positive: Normal inspection, PERRL, No lid inflammation ENT: positive: ENT inspection nml, Pharynx nml, No signs of dehydration. negative: Purulent nasal drainage Neck: positive: Nml inspection, Thyroid nml, Trachea midline. negative: Thyromegaly, Stiff neck, Tracheal deviation Respiratory: positive: Chest non-tender, No respiratory distress. negative: Wheezes, Rales, Rhonchi Cardiovascular: positive: No murmur, No gallop, Irregularly irregular, Tachycardia. negative: Bradycardia, Systolic murmur, Diastolic murmur Peripheral Pulses: 2+ Radial (R), 2+ Radial (L) Abdomen: positive: Non-tender, No organomegaly, Nml bowel sounds, No distention, Tenderness. negative: Guarding, Rebound Back: positive: Nml inspection. negative: CVA tenderness (R), CVA tenderness (L) Skin: positive: Color nml, No rash, Warm, Dry. negative: Cyanosis, Diaphoresis, Pallor Extremities: positive: Non-tender, Full ROM, Nml appearance. negative: Calf tenderness, Lázaro's sign/cords Neurologic/Psychiatric: positive: Oriented x3, Motor nml, Sensation nml. negative: Weakness, Sensory loss, Facial droop, Slurred/abnml speech - Lab Results Fish Bones: 07/14/19 04:40 07/14/19 04:40 Other Labs: Lab Results x24hrs 07/14/19 07/14/19 07/14/19 Range/Units 11:51 07:50 04:40 WBC (4.8-10.8) x10^3/uL RBC (4.20-5.40) 10^6/uL Hgb (12.0-16.0) g/dL Hct (37.0-47.0) % MCV (81.0-99.0) fL MCH (27.0-31.0) pg MCHC (32.0-36.0) g/dL RDW (12.0-15.0) % Plt Count (130-450) 10^3/uL MPV (7.9-10.8) fL Neut # (Auto) (1.5-6.6) 10^3/uL Lymph # (Auto) (1.5-3.5) 10^3/uL [place] # (Auto) (0.0-1.0) 10^3/uL Eos # (Auto) (0.0-0.7) 10^3/uL Baso # (Auto) (0.0-0.1) 10^3/uL Absolute Nucleated RBC x10^3/uL Nucleated RBC % /100WBC Sodium 137 (135-145) mmol/L Potassium 4.0 (3.5-5.0) mmol/L Chloride 105 (101-111) mmol/L Carbon Dioxide 24 (21-32) mmol/L Anion Gap 8.0 (6-13) BUN 17 (6-20) mg/dL Creatinine 1.1 H (0.4-1.0) mg/dL Estimated GFR (MDRD) 49 L (>89) Glucose 112 H (70-100) mg/dL POC Whole Bld Glucose 172 H 101 H (70 - 100) mg/dL Calcium 8.2 L (8.5-10.3) mg/dL 07/14/19 07/13/19 07/13/19 Range/Units 04:40 20:55 16:56 WBC 7.7 (4.8-10.8) x10^3/uL RBC 3.33 L (4.20-5.40) 10^6/uL Hgb 9.9 L (12.0-16.0) g/dL Hct 31.9 L (37.0-47.0) % MCV 95.8 (81.0-99.0) fL MCH 29.7 (27.0-31.0) pg MCHC 31.0 L (32.0-36.0) g/dL RDW 15.6 H (12.0-15.0) % Plt Count 161 (130-450) 10^3/uL MPV 10.9 H (7.9-10.8) fL Neut # (Auto) 5.4 (1.5-6.6) 10^3/uL Lymph # (Auto) 1.7 (1.5-3.5) 10^3/uL [place] # (Auto) 0.5 (0.0-1.0) 10^3/uL Eos # (Auto) 0.1 (0.0-0.7) 10^3/uL Baso # (Auto) 0.1 (0.0-0.1) 10^3/uL Absolute Nucleated RBC 0.00 x10^3/uL Nucleated RBC % 0.0 /100WBC Sodium (135-145) mmol/L Potassium (3.5-5.0) mmol/L Chloride (101-111) mmol/L Carbon Dioxide (21-32) mmol/L Anion Gap (6-13) BUN (6-20) mg/dL Creatinine (0.4-1.0) mg/dL Estimated GFR (MDRD) (>89) Glucose (70-100) mg/dL POC Whole Bld Glucose 88 132 H (70 - 100) mg/dL Calcium (8.5-10.3) mg/dL ABX Reporting Has patient been on IV antibiotics over the past 48 hours?: No Sepsis Event Note (H) - Evaluation Current Stage of Sepsis: Ruled out Assessment/Plan - Problem List (1) Stroke-like symptom Impression: 07/13 Patient right side weakness is resolved, PT OT evaluation in the treated the patient, they believe patient's symptoms are resolved, MRI brain was unremarkable. Patient's son report pt ate lots of fast food, patient continued smoking, educated patient ate healthy food, educated patient quit smoking, pt report her strength is return to her baseline. PT/OT will evaluate and treat for pt. MRI of brain is unremarkable. continue aspirin, eliquis and statin. pt has moderate atherosclerosis at right carotid bifurcation and moderate to severe atherosclerosis at cervical left ICA. I discussed care with pt, pt agree and want to seek vascular surgeon as out-pt. (2) new Atrial flutter with RVR 07/13 improved. but HR is still at 120-140 and SBP is at the lower side around 100. continue IV of digoxin. Tried lower dosage metoprolol but seems less effect julia. will try Cardizem at lower dosage, closely monitor pt's BP and vital signs and continue tele monitor. EKG reveals a flutter/fib at HR 140-160. but pt denies palpitation or distress. pt is asymptomatic. pt's BP is lower. pt was order IV of digoxin. pt is on eliquis. pt has ChADS score 5 continue tele and vital monitor (3)hypotension 07/13 pt's SBP is 103, slight better. continue closely monitor BP. will consider add Midodrive, and check TSH, check cortisol. pt's SBP is around at 90-100. hold blood pressure meds. order one bolus of 500 NS IVF. pt is asymptomatic for hypotension. continue vital monitor (4)systolic and diastolic heart failure 07/13 pt's BP is lower side, continue digoxin ECHO pt has EF at 40-50% and mild diastolic heart failure. pt's BP is lower now. hold BP meds now, continue digoxin (5) Diabetes mellitus A1C is 6.8, continue slide scale, hypoglycemia protocol (6) Hyperlipidemia Atorvastatin 80 mg p.o. nightly p.m. ordered. Lipid panel pending. (7) Depression Conclusion/Plan: On amytriptyline (8) Chronic back pain Conclusion/Plan: On norco
[2019-07-14] MEDS: ATORVASTATIN 40 MG TABLET PO SCH (20:37)
[2019-07-15] MEDS: diltiaZEM 30 MG TABLET PO SCH ×4 (01:10→18:15)
[2019-07-15] MEDS: SODIUM CHLORIDE FLUSH 0.9% 10 ML SYRINGE IVP SCH ×3 (05:08→16:30)
[2019-07-15 05:29] LABS: BASOPHILS # (AUTO) 0.1 10^3/uL (0.0-0.1); BASOPHILS % (AUTO) 0.9 %; EOSINOPHILS # (AUTO) 0.1 10^3/uL (0.0-0.7); EOSINOPHILS % (AUTO) 1.7 %; HGB - HEMOGLOBIN 10.2 g/dL (12.0-16.0); LYMPHOCYTES # (AUTO) 1.9 10^3/uL (1.5-3.5); LYMPHOCYTES % (AUTO) 24.8 %; MEAN CORPUSCULAR HGB CONC 31.7 g/dL (32.0-36.0); MEAN CORPUSCULAR VOLUME 94.7 fL (81.0-99.0); MEAN PLATELET VOLUME 10.9 fL (7.9-10.8); MONOCYTES # (AUTO) 0.5 10^3/uL (0.0-1.0); MONOCYTES % (AUTO) 7.1 %; NEUTROPHILS # (AUTO) 4.9 10^3/uL (1.5-6.6); NEUTROPHILS % (AUTO) 64.8 %; PLT - PLATELET COUNT 167 10^3/uL (130-450); RED CELL DISTRIBUTION WIDTH 15.6 % (12.0-15.0); WHITE BLOOD COUNT 7.6 x10^3/uL (4.8-10.8)
[2019-07-15 05:33] LABS: CALCIUM 8.7 mg/dL (8.5-10.3)
[2019-07-15] MEDS: PANTOPRAZOLE 40 MG TABLET PO SCH (07:07)
[2019-07-15] MEDS: INSULIN ASPART 300 UNIT/3 ML PEN SUBQ SCH ×4 (09:00→20:28)
[2019-07-15] MEDS: ASPIRIN CHEW 81 MG TABLET PO SCH (09:01)
[2019-07-15] MEDS: APIXABAN 5 MG TABLET PO SCH ×2 (09:01→20:27)
[2019-07-15] MEDS: NICOTINE 7 MG PATCH TOP SCH (09:03)
[2019-07-15] MEDS: DIGOXIN 500 MCG/2 ML AMP IVP SCH (09:05)
--- NOTE | 2019-07-15 12:30 | PROVIDER PROGRESS NOTE ---
Assessment/Plan - Problem List (1) RIND (reversible ischemic neurologic deficit) Assessment/Plan: According to the history, the patient has 3 days of symptoms before presenting, MRI showed no stroke but her symptoms have resolved since admission, making this a prolonged TIA, therefore a RIND. Treat with daily aspirin and statin (2) Atrial flutter with rapid ventricular response Assessment/Plan: Due to her soft blood pressure and low blood pressures, increasing her meds for rate control has been difficult. Digoxin was started. Will check a Dig level tomorrow morning. Continue with Dig, Cardizem and possible beta-tona if the blood pressure will allow. Occasionally atrial flutter is a very stubborn rhythm to have good heart rate control and she may need transfer to electrophysiology for AV node block and pacemaker insertion. I described the reasons for needing cardiology management and transfer to a larger hospital, by writing about the procedure, its risks and benefits, on paper and then the patient asked me to call her caregiver who is her daught er-in-law, Ally Florian, which I did do, in the patient's room. The [id number] agrees that the patient should have transfer if needed, and then the patient agreed. She is on Eliquis for stroke prophylaxis. (3) New onset atrial flutter Assessment/Plan: As above. (4) Hypotension Assessment/Plan: Lisinopril was started, has been completely stopped. She runs blood pressures about 99 systolic on her meds for heart rate control. There are no other medications that are significantly dropping her blood pressure. No plan to give saline boluses because of her cardiomyopathy. We will consider Midodrin if needed, to increase BP. (5) PVD (peripheral vascular disease) Assessment/Plan: Significant carotid disease was found and the patient is interested in vascular surgery management, this would be done after discharge. She will end up needing preop clearance from cardiology because of the new onset of atrial flutter. Continue medical management with statin and aspirin currently (6) Acute systolic (congestive) heart failure Assessment/Plan: Echo during this admission showed LVEF 40%. It is very likely from longstanding tachycardia that we have had trouble difficulty controlling since admission. LEE inhibitor was started but needed to be entirely stopped because of her soft blood pressures, in order to use higher doses of heart rate slowing medications. This will need further cardiology management (7) Anemia Assessment/Plan: She is running a hemoglobin chronically of about 10 with a normal MCV. No INR, as she is on Eliquis. We will order B12, folate levels and iron panel, serum testing. (8) Diabetes mellitus Qualifiers: Diabetes mellitus type: type 2 Assessment/Plan: Her A1c was 6.4 on 2 agents being used at home per admission. Here she is on sliding scale insulin. Will add a carb controlled diet order to her salt restriction. (9) Congenital deafness Assessment/Plan: The entire visit communication was done by me writing on tablet, she answered verbally. She asked me to call her [id number] Ally Florian on the patient's cell phone, which I did and spoke to Ally in the pt's room about the recommendations regarding a flutter with fast heart rate. (10) SARA (acute kidney injury) Assessment/Plan: Resolved - Current Meds Current Meds: Current Medications Generic Name Dose Route Start Last Admin Trade Name Freq PRN Reason Stop Dose Admin Albuterol/Ipratropium 3 ml 07/13/19 09:00 07/13/19 09:20 Duoneb INH 3 ml RTQ4H PRN Administration Wheezing Apixaban 5 mg 07/13/19 09:00 07/15/19 09:01 Eliquis PO 5 mg BID DENISE Administration Aspirin 81 mg 07/13/19 09:00 07/15/19 09:01 [facility] Aspirin PO 81 mg DAILY [facility]ISE Administration Atorvastatin Calcium 80 mg 07/13/19 21:00 07/14/19 20:37 Lipitor PO 80 mg QPM DENISE Administration Digoxin 125 mcg 07/14/19 09:00 07/15/19 09:05 Lanoxin Inj IVP 125 mcg DAILY DENISE Administration Insulin Aspart 1 - 5 unit 07/13/19 08:00 07/15/19 11:47 Novolog SUBQ Not Given 0800,1200,1700,2100 DENISE Protocol Nicotine 1 patch 07/13/19 09:00 07/15/19 09:03 Nicoderm TOP 1 patch DAILY [facility] Administration Pantoprazole Sodium 40 mg 07/13/19 07:00 07/15/19 07:07 Protonix PO 40 mg QDAC DENISE Administration Sodium Chloride 10 ml 07/12/19 21:19 07/14/19 09:57 Normal Saline Flush 0.9% IVP 20 ml PRN PRN Administration NEEDED PER PROVIDER ORDERS Sodium Chloride 10 ml 07/13/19 01:00 07/15/19 09:06 Normal Saline Flush 0.9% IVP 10 ml 0100,0900,1700 DENISE Administration - Lab Result Fish Bone Diagrams: 07/15/19 04:50 07/15/19 04:50 - Additional Planning My Orders: My Active Orders 07/15/19 18:00 diltiaZEM [Cardizem] 60 mg PO Q6HR 07/16/19 05:00 BNP - B-NATRIURETIC PEPTIDE [IAI] DAILYLAB DIGOXIN [CHEM] DAILYLAB Objective Vital Signs: Vital Signs - 24 hr 07/14/19 07/14/19 07/14/19 13:00 13:24 14:36 Temperature 36.2 C L Heart Rate Heart Rate [ 140 H Monitoring electrodes] Respiratory 18 Rate Blood Pressure 104/56 L Blood Pressure 104/56 L [Left Brachial artery] Blood Pressure 103/88 H [Right Brachial artery] Blood Pressure 136/112 H [Sitting] O2 Saturation 97 07/14/19 07/14/19 07/14/19 16:19 17:13 19:05 Temperature 36.8 C Heart Rate 120 H Heart Rate [ 127 H Monitoring electrodes] Respiratory 18 18 Rate Blood Pressure 99/77 Blood Pressure [Left Brachial artery] Blood Pressure 99/77 [Right Brachial artery] Blood Pressure [Sitting] O2 Saturation 96 07/14/19 07/15/19 07/15/19 19:55 00:52 01:02 Temperature 36.5 C 36.8 C Heart Rate Heart Rate [ 116 H 56 L 52 L Monitoring electrodes] Respiratory 18 18 18 Rate Blood Pressure Blood Pressure 114/60 [Left Brachial artery] Blood Pressure 102/57 L 125/68 [Right Brachial artery] Blood Pressure [Sitting] O2 Saturation 98 96 95 07/15/19 07/15/19 07/15/19 01:10 05:00 05:09 Temperature 36.6 C Heart Rate Heart Rate [ 121 H Monitoring electrodes] Respiratory 18 Rate Blood Pressure 114/60 103/74 Blood Pressure [Left Brachial artery] Blood Pressure 103/74 [Right Brachial artery] Blood Pressure [Sitting] O2 Saturation 93 07/15/19 07/15/19 07/15/19 07:30 07:37 09:05 Temperature 36.7 C Heart Rate 121 H 135 H Heart Rate [ 125 H Monitoring electrodes] Respiratory 16 16 Rate Blood Pressure Blood Pressure [Left Brachial artery] Blood Pressure 98/64 [Right Brachial artery] Blood Pressure [Sitting] O2 Saturation 93 07/15/19 12:21 Temperature Heart Rate Heart Rate [ Monitoring electrodes] Respiratory Rate Blood Pressure 131/68 H Blood Pressure [Left Brachial artery] Blood Pressure [Right Brachial artery] Blood Pressure [Sitting] O2 Saturation Oxygen O2 Source Room air I&O (Last 24 Hrs): Intake and Output Totals x24h 07/13/19 07/14/19 07/15/19 23:59 23:59 23:59 Intake Total 1735.25 Balance 1735.25 General: Alert, Oriented x3 HEENT: Mucous membr. moist/pink, Other (Deafness) Neck: Supple, No JVD Neuro: Alert, Non Focal, Other (Deaf) Cardiovascular: Regular rate, Other (Tachycardic) Respiratory: No respiratory distress Abdomen: Soft Extremities: No edema Skin: No rashes - Results Results: Laboratory Results WBC 7.6 x10^3/uL (4.8-10.8) 07/15/19 04:50 RBC 3.40 10^6/uL (4.20-5.40) L 07/15/19 04:50 Hgb 10.2 g/dL (12.0-16.0) L 07/15/19 04:50 Hct 32.2 % (37.0-47.0) L 07/15/19 04:50 MCV 94.7 fL (81.0-99.0) 07/15/19 04:50 MCH 30.0 pg (27.0-31.0) 07/15/19 04:50 MCHC 31.7 g/dL (32.0-36.0) L 07/15/19 04:50 RDW 15.6 % (12.0-15.0) H 07/15/19 04:50 Plt Count 167 10^3/uL (130-450) 07/15/19 04:50 MPV 10.9 fL (7.9-10.8) H 07/15/19 04:50 Neut # (Auto) 4.9 10^3/uL (1.5-6.6) 07/15/19 04:50 Lymph # (Auto) 1.9 10^3/uL (1.5-3.5) 07/15/19 04:50 [place] # (Auto) 0.5 10^3/uL (0.0-1.0) 07/15/19 04:50 Eos # (Auto) 0.1 10^3/uL (0.0-0.7) 07/15/19 04:50 Baso # (Auto) 0.1 10^3/uL (0.0-0.1) 07/15/19 04:50 Absolute Nucleated RBC 0.00 x10^3/uL 07/15/19 04:50 Nucleated RBC % 0.0 /100WBC 07/15/19 04:50 Sodium 138 mmol/L (135-145) 07/15/19 04:50 Potassium 4.2 mmol/L (3.5-5.0) 07/15/19 04:50 Chloride 105 mmol/L (101-111) 07/15/19 04:50 Carbon Dioxide 25 mmol/L (21-32) 07/15/19 04:50 Anion Gap 8.0 (6-13) 07/15/19 04:50 BUN 17 mg/dL (6-20) 07/15/19 04:50 Creatinine 1.0 mg/dL (0.4-1.0) 07/15/19 04:50 Estimated GFR (MDRD) 55 (>89) L 07/15/19 04:50 Glucose 109 mg/dL (70-100) H 07/15/19 04:50 POC Whole Bld Glucose 122 mg/dL (70 - 100) H 07/15/19 11:34 Glycated Hemoglobin 6.8 % (4.6-6.2) H 07/13/19 06:15 Estim Average Glucose 148 (70-100) H 07/13/19 06:15 Calcium 8.7 mg/dL (8.5-10.3) 07/15/19 04:50 Magnesium 1.5 mg/dL (1.7-2.8) L 07/12/19 18:33 Total Bilirubin 0.5 mg/dL (0.2-1.0) 07/12/19 18:33 AST 19 IU/L (10-42) 07/12/19 18:33 ALT 27 IU/L (10-60) 07/12/19 18:33 Alkaline Phosphatase 45 IU/L (42-121) 07/12/19 18:33 Troponin I High Sens 12.2 ng/L (2.3-14.8) 07/13/19 13:29 B-Natriuretic Peptide 489 pg/mL (5-100) H 07/12/19 18:33 Total Protein 7.4 g/dL (6.7-8.2) 07/12/19 18:33 Albumin 3.9 g/dL (3.2-5.5) 07/12/19 18:33 Globulin 3.5 g/dL (2.1-4.2) 07/12/19 18:33 Albumin/Globulin Ratio 1.1 (1.0-2.2) 07/12/19 18:33 Triglycerides 84 mg/dL (-149) 07/13/19 06:15 Cholesterol 143 mg/dL (-199) 07/13/19 06:15 LDL Cholesterol, Calc 84 mg/dL (-129) 07/13/19 06:15 VLDL Cholesterol 17 mg/dL 07/13/19 06:15 HDL Cholesterol 42 mg/dL (60-) L 07/13/19 06:15 LDL/HDL Ratio 2.0 (<4.4) 07/13/19 06:15 Cholesterol/HDL Ratio 3.4 (<4.4) 07/13/19 06:15 Lipase 25 U/L (22-51) 07/12/19 18:33 TSH 2.33 uIU/mL (0.34-5.60) 07/15/19 04:50 Cortisol AM Sample 15.0 ug/dL 07/15/19 04:50 Urine Color YELLOW 07/12/19 20:05 Urine Clarity CLEAR (CLEAR) 07/12/19 20:05 Urine pH 5.0 PH (5.0-7.5) 07/12/19 20:05 Ur Specific Melvin 1.020 (1.002-1.030) 07/12/19 20:05 Urine Protein NEGATIVE mg/dL (NEGATIVE) 07/12/19 20:05 Urine Glucose (UA) NEGATIVE mg/dL (NEGATIVE) 07/12/19 20:05 Urine Ketones NEGATIVE mg/dL (NEGATIVE) 07/12/19 20:05 Urine Occult Blood NEGATIVE (NEGATIVE) 07/12/19 20:05 Urine Nitrite NEGATIVE (NEGATIVE) 07/12/19 20:05 Urine Bilirubin NEGATIVE (NEGATIVE) 07/12/19 20:05 Urine Urobilinogen 0.2 (NORMAL) E.U./dL (NORMAL) 07/12/19 20:05 Ur Leukocyte Esterase NEGATIVE (NEGATIVE) 07/12/19 20:05 Ur Microscopic Review NOT INDICATED 07/12/19 20:05 Urine Culture Comments NOT INDICATED 07/12/19 20:05 Sepsis Event Note (H) - Evaluation Current Stage of Sepsis: Ruled out
[2019-07-15] MEDS: ATORVASTATIN 40 MG TABLET PO SCH (20:27)
[2019-07-16] MEDS: diltiaZEM 30 MG TABLET PO SCH ×2 (00:35→07:10)
[2019-07-16] MEDS: SODIUM CHLORIDE FLUSH 0.9% 10 ML SYRINGE IVP SCH ×2 (01:03→08:43)
[2019-07-16] MEDS: SODIUM CHLORIDE FLUSH 0.9% 10 ML SYRINGE IVP PRN ×2 (01:03→07:12)
[2019-07-16 05:54] LABS: % IRON SATURATION 9 % (20-50); DIGOXIN 0.5 ng/mL; IRON 30 ug/dL (28-170); TOTAL IRON BINDING CAPACITY 333 ug/dL (250-450); TRANSFERRIN 238 mg/dL (192-382)
[2019-07-16 06:14] LABS: FOLATE 11.58 ng/mL (5.90 - >24.8)
[2019-07-16] MEDS: PANTOPRAZOLE 40 MG TABLET PO SCH (07:12)
--- NOTE | 2019-07-16 08:07 | Discharge Plan ---
Discharge Plan Problem Reviewed?: Yes Disposition: Home, Self Care Condition: Stable Prescriptions: Apixaban [Eliquis] 5 mg PO BID #60 tablet Atorvastatin Calcium 80 mg PO QPM #30 tablet Digoxin 125 mcg PO DAILY #30 tablet diltiaZEM CD [Cardizem Cd] 240 mg PO DAILY #30 capsule Nicotine 7 mg Patch [Nicoderm] 1 each TOP Q24H #8 patch Diet: Diabetic Activity Restrictions: Activity as Tolerated Shower Restrictions: No Driving Restrictions: Yes Instruction Topics: Blockage Carotid Artery, Endarterectomy Carotid, Transient Ischemic Attack Dc, Atrial Flutter Health Concerns: You were admitted with several days of stroke-like symptoms which improved and the MRI showed no scar (no stroke), therefore you had a prolonged TIA which is called a RIND (Reversible Ischemic Neurologic Deficit). The cause of this RIND appeared to be a new heart rhythm called atrial flutter, that makes clots inside the heart. Atrial flutter has its own problems too, including control of fast heart rates. Your hospitalization was prolonged because of difficulty slowing down the fast heart rate. Eventually a combination of medicines is controlling the heart rate. And you are on a new blood thinner to prevent blood clots and a stroke. You are being sent home on several new medications, follow this new list. Some are your old medicines as well. The prescriptions were electronically prescribed to your pharmacy in [place]. You need follow-up soon with a [facility] for further management and follow-up of the atrial flutter, and for cardiac clearance to undergo carotid vascular surgery, which you said you want. Please see your PCP in the next 5 to 7 days, for hospital follow-up, adjustment of any medications, and you need referrals to a [facility] and a Vascular Surgeon. Plan of Treatment: As above. Care Goals: Improvement in symptoms and stabilization are the goals. Assessment: The patient understands and is in agreement with the plan. No Smoking: If you smoke, Please STOP! Call for help. Follow-up with: VIKTORIYA ENRIQUE MD [Primary Care Provider] -
[2019-07-16] MEDS: INSULIN ASPART 300 UNIT/3 ML PEN SUBQ SCH ×2 (08:15→12:10)
[2019-07-16] MEDS: APIXABAN 5 MG TABLET PO SCH (08:31)
[2019-07-16] MEDS: ASPIRIN CHEW 81 MG TABLET PO SCH (08:31)
[2019-07-16] MEDS: DIGOXIN 500 MCG/2 ML AMP IVP SCH (08:32)
[2019-07-16] MEDS: NICOTINE 7 MG PATCH TOP SCH (08:43)
[2019-07-16 08:58] VITALS: BP 106/61
[2019-07-16] MEDS ORDERED: SENNA 8.6 MG TABLET PO SCH (09:00)
[2019-07-16] MEDS ORDERED: DOCUSATE SODIUM 250 MG CAPSULE PO SCH (09:00)
[2019-07-16] MEDS ORDERED: polyethylene glycoL 3350 17 GM PACKET PO SCH (09:00)
--- NOTE | 2019-07-16 09:15 | DISCHARGE SUMMARY ---
Discharge Summary Admit Date: 07/12/19 Discharge Date: 07/16/19 Discharging Provider: Dr Ella Welch Primary Care Provider: Dr Willian Roque Code Status: Attempt Resuscitation Condition at Discharge: Stable Discharge Disposition: 01 Home, Self Care - [facility] History of Present Illness: From the admission H&P of Dr Rene Hart: This history was mostly obtained from the HPI of the ED physicians H&P. Communication is limited because patient is congenitally deaf. Our entire communication has been by writing back and forth. Patient is a 75-year-old female with history of diabetes mellitus type 2 on metformin, glipizide and insulin, also has hyperlipidemia, depression, ongoing tobacco use who presented to the ED at the request of her stepdaughter (who she lives with) with complaint of right-sided weakness. This has been going on for 2 days. It was more noticeable this morning when she got out of bed. She described an abrupt onset. She is still able to walk around but has been limping and was having to support herself on the feng. She was unable to lift and hold a drinking glass with her right hand and was using her left hand instead. It is reported that she denied any headache or head injury. However at the time of my interaction with her she reported some headache. She denies any previous occurrence of similar episodes. She reports some chest pain, dyspnea, and abdominal discomfort. She denies fever or chills. Work-up in this ED included CT of the brain without contrast which was unremarkable. EKG showed atrial flutter with RVR, which is new. As a result of patient's symptoms, she is being admitted for work-up of a pre sumed stroke and new onset of aflutter with RVR. - HOSPITAL COURSE Hospital Course: (1) RIND (reversible ischemic neurologic deficit) According to the history, the patient has 3 days of symptoms before presenting here, and the MRI showed no stroke but her symptoms resolved since admission, making this a prolonged TIA, therefore a RIND. She was treated with daily aspirin and statin and discharged on this. She underwent carotid Doppler which found significant atherosclerosis (see below). She had an Echo which was abnormal, showing LVEF of 40% (see below). (2) Atrial flutter with rapid ventricular response She was put on Eliquis for stroke prophylaxis. Her troponins x4 and TSH were normal. She was unaware of her rapid heart rate, therefore onset of Aflutter is unknown. If it was prolonged, it probably caused her systolic heart failure (see below). She was given po Cardizem q6h, iv B-tona boluses, and then Dig for rate control. The rapid rate was difficult to control due to her low blood pressures, and prolonged her hospitalization. Since Aflutter is a very stubborn rhythm in which to have good heart rate control, she was offered transfer to electrophysiology for management with AV node block and pacemaker insertion. I described the reasons for needing specialized Cardiology management and transfer to a larger hospital, by writing about the procedure on paper (since she has c ongenital deafness), its risks and benefits, and then the patient asked me to call her caregiver who is her ehmrewiw-hl-pdw, Ally Florian, which I did. The aktbjbcg-ck-uzy agreed that the patient should have transfer if needed, and then the patient agreed. The next day, she converted to sinus rhythm and did not need transfer. A serum Dig level was done and it was not excessive, and she was sent home on new Cardizem CD and Digoxin, plus Eliquis. She needs further evaluation (stress testing) and management (cardiac clearance, if she undergoes carotid endarterectomy, see below) with a Yard Warehouse Worker. (3) New onset atrial flutter As above. (4) Hypotension Lisinopril had been started when the LVEF of 40% was found, but needed to be completely stopped, since she runs blood pressures about 99 mmHg systolic on her meds for heart rate control. There were no other medications that significantly drop her blood pressure. (5) PVD (peripheral vascular disease) Significant carotid disease was found and the patient said she was interested in vascular surgery management, which would be done after discharge. She will be needing preop clearance from Cardiology because of the new onset of atrial flutter and findings of LVEF 40%. Continued medical management with statin and aspirin is planned. (6) Acute systolic (congestive) heart failure Echo during this admission showed LVEF 40%. It is very likely a low EF from longstanding tachycardia that we had trouble controlling this admission, but CAD cannot be ruled out. Her BNP was 489 and improved to 186 with med adjustments, no Lasix was needed, as she had a normal CXR and no dyspnea. An LEE-inhibitor was started but needed to be entirely stopped because of her soft blood pressures, in order to use higher doses of heart rate slowing medications. The cardiomyopathy will need further Cardiology evaluation and management. (7) SARA (acute kidney injury) Resolved with adjustment of meds, creat at admission was 1.3 >> 1.0 at discharge. (8) Anemia She was running a hemoglobin chronically of about 10 with a normal MCV. There was no INR done, as she is on Eliquis. There were no signs of bleeding. Her B12 and Folate levels were normal, as were Iron stores except for a low % satur ation. (9) Diabetes mellitus Her A1c was 6.4 on 2 agents being used at home before admission. Here she was on a carb-controlled diet and sliding scale insulin. (10) Congenital deafness During the entire hospitalization, communication was done by writing on a tablet, but she could answer verbally. (11) Tobacco use A Nicotione Patch was prescribed while here and she did request it be ordered at discharge, which was done, for smoking cessation. - ALLERGIES Allergies/Adverse Reactions: Allergies Allergy/AdvReac Type Severity Reaction Status Date / Time No Known Drug Allergies Allergy Verified 07/12/19 18:01 - MEDICATIONS Home Medications: Ambulatory Orders Medication Instructions Recorded Confirmed Amitriptyline HCl 100 mg PO QPM 07/13/19 07/13/19 Aspirin [Aspirin EC] 81 mg PO DAILY 07/13/19 07/13/[address] [Voltaren] 75 mg PO BID 07/13/19 07/13/19 Glipizide [Glipizide Xl] 10 mg PO DAILY 07/13/19 07/13/19 Metformin HCl 1,000 mg PO BIDWM 07/13/19 07/13/19 Apixaban [Eliquis] 5 mg PO BID #60 tablet 07/16/19 Atorvastatin Calcium 80 mg PO QPM #30 tablet 07/16/19 Digoxin 125 mcg PO DAILY #30 tablet 07/16/19 Nicotine 7 mg Patch [Nicoderm] 1 each TOP Q24H #8 patch 07/16/19 diltiaZEM CD [Cardizem Cd] 240 mg PO DAILY #30 capsule 07/16/19 - PHYSICAL EXAM AT DISCHARGE General Appearance: positive: No acute distress, Alert Eyes Bilateral: positive: Normal inspection, EOMI ENT: positive: ENT inspection nml, No signs of dehydration, Other (bilateral deafness) Neck: positive: Nml inspection, Thyroid nml, No JVD Respiratory: positive: No respiratory distress, Breath sounds nml Cardiovascular: positive: Regular rate & rhythm, No murmur Abdomen: positive: Non-tender, Nml bowel sounds, No distention Skin: positive: Color nml Extremities: positive: Non-tender, No pedal edema Neurologic/Psychiatric: positive: Oriented x3, Other (Bilateral deafness, no gross motor impairment.) - LABS Result Diagrams: 07/15/19 04:50 07/15/19 04:50 - FOLLOW UP Follow Up: See PCP this upcoming week, for hospital follow-up, med adjustments, and referral to a Yard Warehouse Worker.
[2019-07-16] MEDS ORDERED: diltiaZEM CD 240 MG CAPSULE PO SCH (12:00)
== END 2019-07-16 12:45 | disposition home or self-care (01) | DRG 64 ==
LOC: ED 17:31 → MS2 21:19
PROVIDERS: ADMIT Internal Medicine; ATTEND Internal Medicine
DX: R53.1 Weakness (principal); R29.704 NIHSS score 4; I63.9 Cerebral infarction, unspecified; I50.21 Acute systolic (congestive) heart failure; H91.90 Unspecified hearing loss, unspecified ear; I48.92 Unspecified atrial flutter; N17.9 Acute kidney failure, unspecified; F17.200 Nicotine dependence, unspecified, uncomplicated; I65.23 Occlusion and stenosis of bilateral carotid arteries; E11.9 Type 2 diabetes mellitus without complications; D64.9 Anemia, unspecified; E78.5 Hyperlipidemia, unspecified; G89.29 Other chronic pain; M54.9 Dorsalgia, unspecified; I95.9 Hypotension, unspecified; F32.9 Major depressive disorder, single episode, unspecified; F17.210 Nicotine dependence, cigarettes, uncomplicated; H90.3 Sensorineural hearing loss, bilateral; Z79.82 Long term (current) use of aspirin; Z79.4 Long term (current) use of insulin
CPT/HCPCS: 36415; 70496; 70498; 70551; 71045; 80048; 80053; 80061; 80162; 81003; 82533; 82607; 82746; 83036; 83540; 83690; 83735; 83880; 84443; 84466; 84484; 85025; 92610; 93005; 93306; 94640; 96374; 97161; 97166; 99284; 99285; A9270; J1815; Q9967; 81001; 83721; 85610; 87086

== ENCOUNTER 2019-07-25 15:55 | Emergency (ER) | payer MEDICARE ==
--- NOTE | 2019-07-25 16:01 | ED Physician Documentation ---
PD HPI FOCAL NEURO - Stated complaint Stated Complaint: POSS STROKE - History obtained from History obtained from: Patient, EMS - History of Present Illness Timing - onset: How many hours ago (about 1 pm, onset at rest of right sided weakness. Symptoms persisted for couple hours and have improved enroute here. EMS found pt to be in rate controlled atrial fib. BP was adequate, though relatively low. No focal weaknesses enroute per EMS.), Today Timing - details: Abrupt onset, Now resolved (just in the past 20 minutes or so.) Severity of deficit: Moderate Weakness: Face, Arm, Leg, Right Numbness: Face, Arm, Leg, Right Associated symptoms: No: Headache, Nausea / vomiting, Fall, Head injury, Chest pain (and no feeling of irregular/fast heart rate) Contributing factors: positive: Anticoagulated (since 07/12/19) Baseline status: positive: A&OX3, ambulatory, indep Similar symptoms before: Diagnosis (She had similar symptoms lasting about 2 days of right-sided weakness and was seen on 07/12/19 for this similar right- sided weakness. She was found at that time to have fast rate atrial fibrillation and a CT scan RAY[place]D of the neck showing carotid stenoses equal or greater than 70%. She had a negative MRI of the head showing no stroke. Her symptoms had improved in the hospital and her rhythm converted to sinus rhythm with slowing medication. She was discharged with Eliquis, digoxin, beta- blockers. She had been doing well until today with onset of weakness again.) Recently seen: Emergency Dept, Admitted (07/11-) Review of Systems Constitutional: denies: Fever, Chills Nose: denies: Rhinorrhea / runny nose, Congestion Throat: denies: Sore throat Respiratory: denies: Cough GI: denies: Abdominal Pain, Nausea, Vomiting, Diarrhea : denies: Dysuria, Frequency Musculoskeletal: denies: Neck pain, Back pain Neurologic: denies: Syncope, Headache, Head injury PD PAST MEDICAL HISTORY - Past Medical History Cardiovascular: High cholesterol, Murmur Respiratory: None Neuro: None Endocrine/Autoimmune: Type 2 diabetes GI: None ANALYTICAL SCIENTIST: None : None HEENT: Chronic hearing loss, Other Psych: Depression Musculoskeletal: Chronic back pain Derm: None - Past Surgical History Past Surgical History: No Ortho: Spine surgery /ANALYTICAL SCIENTIST: Hysterectomy - Present Medications Home Medications: Ambulatory Orders Medication Instructions Recorded Confirmed Amitriptyline HCl 100 mg PO QPM 07/13/19 07/25/19 Aspirin [Aspirin EC] 81 mg PO DAILY 07/13/19 07/25/19 Glipizide [Glipizide Xl] 10 mg PO DAILY 07/13/19 07/25/19 Metformin HCl 1,000 mg PO BIDWM 07/13/19 07/25/19 Apixaban [Eliquis] 5 mg PO BID #60 tablet 07/16/19 07/25/19 Atorvastatin Calcium 80 mg PO QPM #30 tablet 07/16/19 07/25/19 Digoxin 125 mcg PO DAILY #30 tablet 07/16/19 07/25/19 diltiaZEM CD [Cardizem Cd] 240 mg PO DAILY #30 capsule 07/16/19 07/25/19 - Allergies Allergies/Adverse Reactions: Allergies Allergy/AdvReac Type Severity Reaction Status Date / Time No Known Drug Allergies Allergy Verified 07/25/19 16:05 - Social History Does the pt smoke?: Yes Smoking Status: Current every day smoker Does the pt drink ETOH?: No Does the pt have substance abuse?: No - Immunizations Immunizations are current?: Yes - POLST Patient has POLST: No POLST Status: Full Code PD ED PE NORMAL - Vitals Vital signs reviewed: Yes - General General: Alert and oriented X 3, No acute distress, Well developed/nourished, Other (She is deaf but reads lips quite well.) - HEENT HEENT: Atraumatic, Pharynx benign - Neck Neck: Supple, no meningeal sign, No adenopathy, No bruit - Cardiac Cardiac: No murmur. No: RRR (irregular but controlled rate) - Respiratory Respiratory: Clear bilaterally - Abdomen Abdomen: Soft, Non tender - Derm Derm: Normal color, Warm and dry - Extremities Extremities: No tenderness to palpate, Normal ROM s pain, No edema, No calf tenderness / cord - Neuro Neuro: Alert and oriented X 3, insulation helper 2-12 intact, No motor deficit, No sensory deficit, Normal speech NIHSS - Level of Consciousness Level of consciousness: (0) Alert, Keenly responsive LOC Questions: (0) Answers both Q's correct LOC Commands: (0) Performs both correctly - Gaze Best Gaze: (0) Normal - Visual Visual: (0) No loss - Facial Palsy Facial Palsy: (0) Normal, symmetrical movement - Motor Arms (both separate) Motor Arm (right): (0) No drift Motor Arm (left): (0) No drift - Motor Legs (both separate) Motor Leg (right): (0) No drift Motor Leg (left): (0) No drift - Limb Ataxia Limb Ataxia: (0) Absent - Sensory Sensory: (0) Normal - Best Language Best Language: (0) No aphasia - Dysarthria Dysarthria: (0) Normal - Extinction and Inattention (formally neg Extinction and inattention: (0) No abnormality - Total Score/Results Total Score/Result: 0 Results - Vitals Vitals: Vital Signs - 24 hr 07/25/19 07/25/19 07/25/19 16:00 16:30 17:00 Temperature 36.6 C Heart Rate 58 L 90 88 Respiratory 18 15 18 Rate Blood Pressure 104/70 104/74 96/58 L O2 Saturation 95 95 99 07/25/19 17:30 Temperature Heart Rate 90 Respiratory 19 Rate Blood Pressure 96/63 O2 Saturation 95 Oxygen O2 Source Room air - Labs Labs: Laboratory Tests 07/25/19 07/25/19 07/25/19 16:00 16:00 16:00 WBC 7.8 RBC 3.61 L Hgb 11.1 L Hct 34.4 L MCV 95.3 MCH 30.7 MCHC 32.3 RDW 15.3 H Plt Count 183 MPV 9.9 Neut # (Auto) 4.8 Lymph # (Auto) 1.9 Woodson # (Auto) 0.8 Eos # (Auto) 0.2 Baso # (Auto) 0.1 Absolute Nucleated RBC 0.00 Nucleated RBC % 0.0 PT 18.5 H INR 1.7 H APTT 37.9 H Sodium 138 Potassium 4.6 Chloride 103 Carbon Dioxide 27 Anion Gap 8.0 BUN 22 H Creatinine 1.3 H Estimated GFR (MDRD) 40 L Glucose 86 Calcium 8.7 Magnesium 1.1 L Total Bilirubin 0.4 AST 15 ALT 18 Alkaline Phosphatase 59 Total Protein 7.6 Albumin 3.6 Globulin 4.0 Albumin/Globulin Ratio 0.9 L Lipase 26 Last Dose Date Last Dose Time Digoxin 07/25/19 16:00 WBC RBC Hgb Hct MCV MCH MCHC RDW Plt Count MPV Neut # (Auto) Lymph # (Auto) Woodson # (Auto) Eos # (Auto) Baso # (Auto) Absolute Nucleated RBC Nucleated RBC % PT INR APTT Sodium Potassium Chloride Carbon Dioxide Anion Gap BUN Creatinine Estimated GFR (MDRD) Glucose Calcium Magnesium Total Bilirubin AST ALT Alkaline Phosphatase Total Protein Albumin Globulin Albumin/Globulin Ratio Lipase Last Dose Date UNKNOWN Last Dose Time UNKNOWN Digoxin 0.8 - Rads (name of study) head CT and angio Radiology: Prelim report reviewed, Final report received, Discussed with rads (No acute intracranial bleeding. Flow and findings are similar to that from 07/12/2019. No acute vascular occlusion. Upper carotid stenosis is still visible. We did not repeat the carotids on this visit.), See rad report PD MEDICAL DECISION MAKING - ED course Complexity details: considered differential (She is in atrial fibrillation with rate control here but it may have been that she had a faster rate at the onset of her symptoms. She has been seeing July 11 and was hospitalized for 4 days with evaluation including echo and treatment for the atrial fibrillation and MRI of the brain. Her MRI had shown no stroke. However she did have stenoses at the carotids and the thought was perhaps rate related ischemia in conjunction with atrial fibrillation. She was to get follow-up with cardiology neurology and vascular surgery and these were in process for [place]. With the recurrent symptoms today, it is unclear whether she had a recurrent A. fib episode or how long she has been in at this time (she was discharged in sinus rhythm on her previous admission). Her symptoms of the right-sided weakness are resolved at this time. Her CT did not show any bleeding. The CTA did not show any obvious occlusions. We will maintain her blood pressure adequate and rate control with fluids and rate related to eating medications. Otherwise I think she needs more expedited evaluation regarding the atrial fibrillation and in particular the carotid stenoses.), d/w bath design sales consultant (I talked with Dr. Jacqueline wilkerson who is the hospitalist at discharge the patient last time and also reviewed the discharge summary. The patient was apparently to get referrals for cardiology and vascular surgery. The patient states they saw their primary care and there for girls were still in process and were to specialist at [facility] in [place]. I talked with the hospitalist who also asked for input from the vascular surgeon. I talked with Dr. Brady who is on-call who would see the patient and specified for her to be on heparin without a loading dose but just the drip and to hold her Eliquis. The patient states she did have her morning dose of Eliquis.) Departure - Departure Disposition: 02 Transfer Acute Care Hosp Clinical Impression: TIA (transient ischemic attack), Carotid stenosis, bilateral Atrial fibrillation Qualifiers: Atrial fibrillation type: paroxysmal Qualified Code(s): I48.0 - Paroxysmal atrial fibrillation Hearing impaired person Qualifiers: Laterality: bilateral Qualified Code(s): H91.93 - Unspecified hearing loss, bilateral Condition: Stable Record reviewed to determine appropriate education?: Yes
[2019-07-25 16:08] LABS: BASOPHILS # (AUTO) 0.1 10^3/uL (0.0-0.1); BASOPHILS % (AUTO) 1.3 %; EOSINOPHILS # (AUTO) 0.2 10^3/uL (0.0-0.7); EOSINOPHILS % (AUTO) 2.4 %; HGB - HEMOGLOBIN 11.1 g/dL (12.0-16.0); LYMPHOCYTES # (AUTO) 1.9 10^3/uL (1.5-3.5); LYMPHOCYTES % (AUTO) 24.4 %; MEAN CORPUSCULAR HEMOGLOBIN 30.7 pg (27.0-31.0); MEAN CORPUSCULAR HGB CONC 32.3 g/dL (32.0-36.0); MEAN CORPUSCULAR VOLUME 95.3 fL (81.0-99.0); MEAN PLATELET VOLUME 9.9 fL (7.9-10.8); MONOCYTES # (AUTO) 0.8 10^3/uL (0.0-1.0); MONOCYTES % (AUTO) 9.6 %; NEUTROPHILS # (AUTO) 4.8 10^3/uL (1.5-6.6); NEUTROPHILS % (AUTO) 61.3 %; PLT - PLATELET COUNT 183 10^3/uL (130-450); RED BLOOD COUNT 3.61 10^6/uL (4.20-5.40); RED CELL DISTRIBUTION WIDTH 15.3 % (12.0-15.0); WHITE BLOOD COUNT 7.8 x10^3/uL (4.8-10.8)
[2019-07-25 16:15] LABS: INR 1.7 (0.8-1.2); PT - PROTHROMBIN TIME 18.5 secs (9.9-12.6)
[2019-07-25 16:20] LABS: ALBUMIN 3.6 g/dL (3.2-5.5); ALBUMIN/GLOBULIN RATIO 0.9 (1.0-2.2); BILIRUBIN,TOTAL 0.4 mg/dL (0.2-1.0); CALCIUM 8.7 mg/dL (8.5-10.3); CREATININE 1.3 mg/dL (0.4-1.0); MAGNESIUM 1.1 mg/dL (1.7-2.8); TOTAL PROTEIN 7.6 g/dL (6.7-8.2)
[2019-07-25 16:22] LABS: PARTIAL THROMBOPLASTIN TIME 37.9 secs (24.9-33.3)
[2019-07-25] MEDS ORDERED: IOVERSOL 320 100 ML VIAL IVP ONE (16:24)
[2019-07-25 16:36] LABS: DIGOXIN 0.8 ng/mL
--- NOTE | 2019-07-25 16:37 | CT Report ---
Reason: L sided facial droop Procedure Date: 07/25/2019 Accession Number: [id number] / [id number] Procedure: CT - ANGIO HEAD W/WO CPT Code: Final Report FULL RESULT: PROCEDURE: ANGIO HEAD W/WO INDICATIONS: L sided facial droop CONTRAST: IV CONTRAST: Optiray 320 ml: 80 PO CONTRAST: *NO PO CONTRAST TECHNIQUE: Noncontrast images were performed separately. After the administration of intravenous contrast, 1 mm thick sections acquired through the [place] of [place]. Postcontrast 4.5 mm thick sections then re-acquired from the foramen magnum to the vertex. 3-dimensional mpegzrv-jwzepepkn-luhjimpzwy (MIP) and/or volume rendering reformats were acquired of the central intracranial vasculature. For radiation dose reduction, the following was used: automated exposure control, adjustment of mA and/or kV according to patient size. COMPARISON: Prior CT had angiogram 07/12/2019 Correlation is made with the accompanying noncontrast head CT. Correlation is also made with prior brain MRI 07/13/2019. FINDINGS: Image quality: Excellent. Anterior circulation: Dense calcification can be seen involving the intracranial internal carotid arteries, with approximately 70% narrowing seen on each side. The flow within the paired anterior cerebral arteries is normal and symmetric. The flow within the middle cerebral arteries is normal and symmetric. The anterior communicating artery is seen. No aneurysms are seen. Posterior circulation: Visualized portions of the vertebral arteries demonstrate normal caliber, and join to form a normal appearing basilar artery. Incidental note is made of a prominent right posterior communicating artery, with a diminutive right P1 segment. This is attributed to a type origin of the right posterior cerebral artery, which is considered to be a developmental variant of typically no clinical consequence. Flow within the posterior cerebral arteries is normal and symmetric. No aneurysms are seen. CSF spaces: Ventricles are normal in size and shape. Basal cisterns are patent. No extra-axial fluid collections. Brain: No midline shift. No intracranial bleeds or masses. Villanueva-white matter interface appears intact. Skull and face: Calvarium and facial bones appear intact, without suspicious lesions. Sinuses: Visualized sinuses and mastoids are clear. IMPRESSION: No occlusion or acute intracranial arterial abnormality is seen. There is again seen dense atherosclerotic calcification of the intracranial internal carotid arteries, with approximately 70% narrowing seen on each side. No abnormal enhancement can be seen. Reviewed by: Kristofer Hartman MD on 07/25/2019 3:35 PM LACHO Approved by: Kristofer Hartman MD on 07/25/2019 3:35 PM LACHO Station ID: [id number]
--- NOTE | 2019-07-25 16:39 | CT Report ---
Reason: right sided weakness today again Procedure Date: 07/25/2019 Accession Number: [id number] / [id number] Procedure: CT - Head W/O Stroke Protocol CPT Code: Final Report FULL RESULT: PROCEDURE: Head W/O Stroke Protocol INDICATIONS: right sided weakness today again TECHNIQUE: Noncontrast 4.5 mm thick angled axial sections acquired from the foramen magnum to the vertex. For radiation dose reduction, the following was used: automated exposure control, adjustment of mA and/or kV according to patient size. COMPARISON: Concurrent CT angiogram of the head and neck. CT head and neck angiogram 07/12/2019. FINDINGS: Image quality: Excellent. CSF spaces: Basal cisterns are patent. No extra-axial fluid collections. Ventricles are normal in size and shape. Brain: No intracranial hemorrhage, mass, or mass effect. Villanueva-white matter interface appears preserved. Skull and face: Calvarium and visualized facial bones are intact, without suspicious lesions. Sinuses: Visualized sinuses and mastoids are clear. IMPRESSION: 1. No acute intracranial abnormality. Specifically, no intracranial hemorrhage or other imaging contraindications to anticoagulation. Findings discussed with Dr. Vick on 07/25/2019 at 4:30 PM. Reviewed by: Taj Hill MD on 07/25/2019 4:37 PM PDT Approved by: Taj Hill MD on 07/25/2019 4:37 PM PDT Station ID: [id number]
[2019-07-25] MEDS ORDERED: HEPARIN 25000UNITS/500ML (D5W) 25,000 UNIT/500 ML BAG IV STA (17:35)
[2019-07-25] MEDS ORDERED: SODIUM CHLORIDE 0.9% 500 ML IV STA (17:49)
[2019-07-25 18:37] VITALS: BP 107/72
== END 2019-07-25 18:45 | disposition short-term general hospital (02) ==
LOC: ED 15:55
DX: G45.9 Transient cerebral ischemic attack, unspecified (principal); I48.0 Paroxysmal atrial fibrillation; H91.93 Unspecified hearing loss, bilateral; E11.9 Type 2 diabetes mellitus without complications; Z79.01 Long term (current) use of anticoagulants; Z79.84 Long term (current) use of oral hypoglycemic drugs
CPT/HCPCS: 36415; 70450; 70496; 80053; 80162; 83690; 83735; 85025; 85610; 85730; 93005; 96361; 96374; 99284; 99285; Q9967

== ENCOUNTER 2019-08-15 15:40 | Outpatient (CLI) | payer MEDICARE ==
[2019-08-15 18:28] LABS: BASOPHILS # (AUTO) 0.1 10^3/uL (0.0-0.1); BASOPHILS % (AUTO) 1.4 %; EOSINOPHILS # (AUTO) 0.4 10^3/uL (0.0-0.7); EOSINOPHILS % (AUTO) 4.1 %; HGB - HEMOGLOBIN 10.5 g/dL (12.0-16.0); LYMPHOCYTES # (AUTO) 2.5 10^3/uL (1.5-3.5); LYMPHOCYTES % (AUTO) 25.1 %; MEAN CORPUSCULAR HEMOGLOBIN 29.1 pg (27.0-31.0); MEAN CORPUSCULAR HGB CONC 30.6 g/dL (32.0-36.0); MONOCYTES # (AUTO) 0.6 10^3/uL (0.0-1.0); MONOCYTES % (AUTO) 6.5 %; NEUTROPHILS # (AUTO) 6.2 10^3/uL (1.5-6.6); NEUTROPHILS % (AUTO) 62.3 %; PLT - PLATELET COUNT 226 10^3/uL (130-450); RED BLOOD COUNT 3.61 10^6/uL (4.20-5.40); RED CELL DISTRIBUTION WIDTH 15.9 % (12.0-15.0); WHITE BLOOD COUNT 9.9 x10^3/uL (4.8-10.8)
[2019-08-15 18:48] LABS: CALCIUM 8.7 mg/dL (8.5-10.3); CREATININE 1.7 mg/dL (0.4-1.0)
[2019-08-15 18:53] LABS: HB2 TOTAL 11.1 g/dL; HEMOGLOBIN A1C 0.56 g/dL; HEMOGLOBIN A1C % 6.8 % (4.6-6.2)
== END 2019-08-15 23:59 | disposition home or self-care (01) ==
LOC: LAB.WCP 15:40
PROVIDERS: ATTEND Family Medicine
DX: G45.9 Transient cerebral ischemic attack, unspecified (principal); D64.9 Anemia, unspecified; I95.9 Hypotension, unspecified; I48.92 Unspecified atrial flutter; E11.9 Type 2 diabetes mellitus without complications
CPT/HCPCS: 36415; 80048; 83036; 85025

== ENCOUNTER 2019-09-05 08:00 | Outpatient (CLI) | payer MEDICARE ==
[2019-09-05 18:45] LABS: HGB - HEMOGLOBIN 10.2 g/dL (12.0-16.0); MEAN CORPUSCULAR VOLUME 96.8 fL (81.0-99.0); MEAN PLATELET VOLUME 11.6 fL (7.9-10.8); RED BLOOD COUNT 3.4 10^6/uL (4.20-5.40); RED CELL DISTRIBUTION WIDTH 16.2 % (12.0-15.0); WHITE BLOOD COUNT 7.7 x10^3/uL (4.8-10.8)
[2019-09-05 19:18] LABS: CALCIUM 8.2 mg/dL (8.5-10.3); CREATININE 1.7 mg/dL (0.4-1.0)
== END 2019-09-05 23:59 | disposition home or self-care (01) ==
LOC: LAB.WCP 08:00
PROVIDERS: ATTEND Nurse Practitioner Gerontology
DX: I48.19 Other persistent atrial fibrillation (principal); I95.9 Hypotension, unspecified
CPT/HCPCS: 36415; 80048; 84443; 85027

== ENCOUNTER 2019-12-18 11:55 | Outpatient (CLI) | payer MEDICARE ==
[2019-12-18 18:09] LABS: BASOPHILS # (AUTO) 0.1 10^3/uL (0.0-0.1); BASOPHILS % (AUTO) 1.2 %; EOSINOPHILS # (AUTO) 0.3 10^3/uL (0.0-0.7); EOSINOPHILS % (AUTO) 3.2 %; HGB - HEMOGLOBIN 9.6 g/dL (12.0-16.0); LYMPHOCYTES # (AUTO) 1.9 10^3/uL (1.5-3.5); LYMPHOCYTES % (AUTO) 20.9 %; MEAN CORPUSCULAR HEMOGLOBIN 29.2 pg (27.0-31.0); MEAN CORPUSCULAR HGB CONC 29.9 g/dL (32.0-36.0); MEAN CORPUSCULAR VOLUME 97.6 fL (81.0-99.0); MEAN PLATELET VOLUME 11.6 fL (7.9-10.8); MONOCYTES # (AUTO) 0.6 10^3/uL (0.0-1.0); MONOCYTES % (AUTO) 6.4 %; NEUTROPHILS # (AUTO) 6.2 10^3/uL (1.5-6.6); NEUTROPHILS % (AUTO) 67.7 %; PLT - PLATELET COUNT 239 10^3/uL (130-450); RED BLOOD COUNT 3.29 10^6/uL (4.20-5.40); RED CELL DISTRIBUTION WIDTH 17.7 % (12.0-15.0); WHITE BLOOD COUNT 9.1 x10^3/uL (4.8-10.8)
[2019-12-18 18:34] LABS: CALCIUM 8.7 mg/dL (8.5-10.3); CREATININE 1.2 mg/dL (0.4-1.0)
[2019-12-18 20:25] LABS: HEMOGLOBIN A1c% 5.3 % (4.27-6.07)
== END 2019-12-18 23:59 | disposition home or self-care (01) ==
LOC: LAB.WCP 11:55
PROVIDERS: ATTEND Nurse Practitioner Gerontology
DX: E11.9 Type 2 diabetes mellitus without complications (principal); I48.0 Paroxysmal atrial fibrillation; I38 Endocarditis, valve unspecified; I95.9 Hypotension, unspecified; H91.93 Unspecified hearing loss, bilateral
CPT/HCPCS: 36415; 80048; 83036; 85025

== ENCOUNTER 2020-04-10 10:43 | Emergency (ER) | payer MEDICARE, MEDICAID ==
[2020-04-10] MEDS ORDERED: HYDROcod/ACETAM 5/325 MG TABLET PO STA (12:07)
--- NOTE | 2020-04-10 12:24 | ED Physician Documentation ---
History of Present Illness - Stated complaint Stated Complaint: SOA,RIGHT SIDE INJURY - Chief complaint Chief Complaint: Trauma Ch/Bk - History obtained from History obtained from: Patient, Family - Additonal information Additional information: Patient comes emergency department chief complaint of right rib and right hip pain after a ground-level fall yesterday. Patient was just discharged from [facility] after being admitted for anemia and bacteremia sepsis. She is feeling much better in that regard, but was discharged without shoes on per patient's daughter. When she got to the car and tried to walk, she lost her balance on the uneven ground while stepping up onto the curb and fell onto her right side. Patient was able to walk afterward, But it was causing pain mainly in her ribs. Patient denies any other complaints at this time. She was actually here with her daughter to the [facility] clinic and get an IV antibiotic infusion, but after finishing her infusion, she was told by staff there to come here and get checked out. No other complaints at this time. Review of Systems Ten Systems: 10 systems reviewed and negative Constitutional: reports: Reviewed and negative Eyes: reports: Reviewed and negative Ears: reports: Reviewed and negative Nose: reports: Reviewed and negative Throat: reports: Reviewed and negative Cardiac: reports: Chest pain / pressure Respiratory: reports: Reviewed and negative GI: reports: Reviewed and negative : reports: Reviewed and negative Skin: reports: Reviewed and negative Musculoskeletal: reports: Joint pain, Pain with weight bearing Neurologic: reports: Reviewed and negative Psychiatric: reports: Reviewed and negative Endocrine: reports: Reviewed and negative Immunocompromised: reports: Reviewed and negative PD PAST MEDICAL HISTORY - Past Medical History Past Medical History: Yes Cardiovascular: Hypertension, High cholesterol, Atrial fibrillation, Murmur Respiratory: None Neuro: None, TIA Endocrine/Autoimmune: Type 2 diabetes GI: Ulcers DIGITAL PROGRAM MANAGER: None : None HEENT: Chronic hearing loss, Other Psych: Depression, Anxiety Musculoskeletal: Chronic back pain Derm: None - Past Surgical History Past Surgical History: No Ortho: Spine surgery /DIGITAL PROGRAM MANAGER: Hysterectomy - Present Medications Home Medications: Ambulatory Orders Medication Instructions Recorded Confirmed Amitriptyline HCl 100 mg PO QPM 07/13/19 07/25/19 Aspirin [Aspirin EC] 81 mg PO DAILY 07/13/19 07/25/19 Glipizide [Glipizide Xl] 10 mg PO DAILY 07/13/19 07/25/19 Metformin HCl 1,000 mg PO BIDWM 07/13/19 07/25/19 Apixaban [Eliquis] 5 mg PO BID #60 tablet 07/16/19 07/25/19 Atorvastatin Calcium 80 mg PO QPM #30 tablet 07/16/19 07/25/19 Digoxin 125 mcg PO DAILY #30 tablet 07/16/19 07/25/19 diltiaZEM CD [Cardizem Cd] 240 mg PO DAILY #30 capsule 07/16/19 07/25/19 Tramadol HCl [Ultram] 50 mg PO Q6HR PRN #12 04/10/20 - Allergies Allergies/Adverse Reactions: Allergies Allergy/AdvReac Type Severity Reaction Status Date / Time No Known Drug Allergies Allergy Verified 04/10/20 10:52 - Social History Does the pt smoke?: Yes Smoking Status: Current every day smoker Does the pt drink ETOH?: No Does the pt have substance abuse?: No - Immunizations Immunizations are current?: Yes Immunizations: TDAP >10years/unknown - POLST Patient has POLST: No POLST Status: Full Code PD ED PE NORMAL - Vitals Vital signs reviewed: Yes - General General: Alert and oriented X 3, No acute distress, Well developed/nourished - HEENT HEENT: Atraumatic, PERRL, EOMI, Moist mucous membranes - Neck Neck: Supple, no meningeal sign - Cardiac Cardiac: RRR, No murmur, Strong equal pulses - Respiratory Respiratory: No respiratory distress, Clear bilaterally - Abdomen Abdomen: Soft, Non tender, Non distended - Back Back: No CVA TTP, No spinal TTP - Derm Derm: Normal color, Warm and dry, No rash, Other (Contusion over right inferolateral rib cage. No skin changes over right hip.) - Extremities Extremities: No deformity, No edema, No calf tenderness / cord, Other (Tenderness over right hip, mild, lateral.) - Neuro Neuro: Alert and oriented X 3 - Psych Psych: Normal mood, Normal affect Results - Vitals Vitals: Oxygen O2 Source Room air - Rads (name of study) R ribs/chest Radiology: Final report received, EMP read indepedently, See rad report (neg for fracture) R hip and pelvis Radiology: Final report received, EMP read indepedently, See rad report PD MEDICAL DECISION MAKING - ED course Complexity details: reviewed results, re-evaluated patient, considered differential, d/w patient ED course: Patient was worked up with x-rays of the right ribs and hip. She did not hit her head during the fall, so I did not feel brain imaging was indicated. She did not seem to have any symptoms associated with her recent admission, and her complaints were simply related to her mechanical fall. As such, I did not feel laboratory studies were indicated. Xrays were negative. Pt was able to transfer in the ED, as she had been doing before her fall. We have discussed symptomatic management, as well as the usual indications for return. Pt is stable for d/c. Departure - Departure Disposition: 01 Home, Self Care Clinical Impression: Contusion of rib on right side Qualifiers: Encounter type: initial encounter Qualified Code(s): S20.211A - Contusion of right front wall of thorax, initial encounter Contusion, hip Qualifiers: Encounter type: initial encounter Laterality: right Qualified Code(s): S70.01XA - Contusion of right hip, initial encounter Condition: Stable Instructions: ED Contusion Rib Prescriptions: Tramadol HCl [Ultram] 50 mg PO Q6HR PRN #12 PRN Reason: Pain Comments: There is no evidence of broken bones on any of the x-rays. Most likely, you have bruised your hip and ribs. The pain from this will subside given time. You may take up the medication prescribed for pain, as needed. Please follow-up with your primary care physician if you are not feeling at least somewhat better after the weekend. Discharge Date/Time: 04/10/20 13:59
--- NOTE | 2020-04-10 13:05 | XRAY Report ---
PROCEDURE: Hip w/Pelvis 1V RT INDICATIONS: GLF, pain TECHNIQUE: AP pelvis with lateral view(s) of the left hip(s). COMPARISON: None. FINDINGS: Bones: No fractures or dislocations. Pelvic ring appears intact. No suspicious bony lesions. Soft tissues: The visualized bowel gas pattern is normal. No suspicious soft tissue calcifications. IMPRESSION: Quality of visualization is somewhat limited by patient body habitus. A definite area of trauma is not seen but if unusual symptoms are present follow-up by dedicated CT scanning through e area of concern may be warranted. Reviewed by: Abhishek Carver MD on 04/10/2020 1:04 PM PST Approved by: Abhishek Carver MD on 04/10/2020 1:04 PM PST Station ID: [id number]
--- NOTE | 2020-04-10 13:08 | XRAY Report ---
PROCEDURE: Ribs w/PA Chest RT INDICATIONS: GLF, pain, bruising TECHNIQUE: 3 views of the right ribs were acquired, along with a single view chest. COMPARISON: 07/12/2019 chest plain film FINDINGS: Surgical changes and devices: None. Bones and chest wall: No fractures or dislocations. No suspicious bony lesions. Overlying soft tis sues appear unremarkable. Lungs and pleura: No pleural effusions or pneumothorax. Lungs appear moderately edematous. Mediastinum: Mediastinal contours appear mildly enlarged. Heart size is normal. IMPRESSION: Quality of visualization is significantly limited by body habitus, pulmonary edema, and overlap of mi ld cardiomegaly. Suspect acute CHF exacerbation. A definite fracture is not seen. Reviewed by: Abhishek Carver MD on 04/10/2020 1:07 PM PST Approved by: Abhishek Carver MD on 04/10/2020 1:07 PM [facility] Station ID: [id number]
[2020-04-10 13:48] VITALS: BP 123/75
== END 2020-04-10 13:59 | disposition home or self-care (01) ==
LOC: ED 10:43
DX: S20.211A Contusion of right front wall of thorax, initial encounter (principal); S70.01XA Contusion of right hip, initial encounter; W01.0XXA Fall on same level from slipping, tripping and stumbling without subsequent striking against object, initial encounter; Y93.89 Activity, other specified; Y92.89 Other specified places as the place of occurrence of the external cause; I10 Essential (primary) hypertension; F17.200 Nicotine dependence, unspecified, uncomplicated; E11.9 Type 2 diabetes mellitus without complications; Z79.84 Long term (current) use of oral hypoglycemic drugs
CPT/HCPCS: 71101; 73501; 99283; A9270

== ENCOUNTER 2020-04-23 08:40 | Outpatient (CLI) | payer MEDICARE, MEDICAID | END 2020-04-23 08:41 | disposition critical access hospital (66) | LOC: EMS 08:40 | PROVIDERS: ATTEND Emergency Medicine | DX: K92.1 Melena (principal); R53.1 Weakness; R60.1 Generalized edema | CPT/HCPCS: A0425; A0427 ==

== ENCOUNTER 2020-04-23 09:00 | Inpatient (IN) | payer MEDICARE, MEDICAID ==
[2020-04-23] MEDS ORDERED: SODIUM CHLORIDE 0.9% 500 ML IV STA (09:14)
[2020-04-23 09:24] LABS: BASOPHILS # (AUTO) 0.1 10^3/uL (0.0-0.1); BASOPHILS % (AUTO) 0.9 %; EOSINOPHILS % (AUTO) 0.6 %; HCT - HEMATOCRIT 33.4 % (37.0-47.0); HGB - HEMOGLOBIN 10.2 g/dL (12.0-16.0); LYMPHOCYTES # (AUTO) 1.1 10^3/uL (1.5-3.5); LYMPHOCYTES % (AUTO) 17.1 %; MEAN CORPUSCULAR HEMOGLOBIN 29.1 pg (27.0-31.0); MEAN CORPUSCULAR HGB CONC 30.5 g/dL (32.0-36.0); MEAN CORPUSCULAR VOLUME 95.4 fL (81.0-99.0); MEAN PLATELET VOLUME 11.2 fL (7.9-10.8); MONOCYTES # (AUTO) 0.5 10^3/uL (0.0-1.0); MONOCYTES % (AUTO) 8.3 %; NEUTROPHILS # (AUTO) 4.6 10^3/uL (1.5-6.6); NEUTROPHILS % (AUTO) 72.6 %; NRBC ABSOLUTE COUNT (AUTO) 0.04 x10^3/uL; NUCLEATED RED BLOOD CELLS AUTO 0.6 /100WBC; PLT - PLATELET COUNT 220 10^3/uL (130-450); RED CELL DISTRIBUTION WIDTH 25.9 % (12.0-15.0); WHITE BLOOD COUNT 6.4 x10^3/uL (4.8-10.8)
[2020-04-23 09:25] LABS: SLIDE REVIEW? Indicated
[2020-04-23 09:35] LABS: INR 2.9 (0.8-1.2); PT - PROTHROMBIN TIME 30.7 secs (9.9-12.6)
[2020-04-23 09:39] LABS: ALBUMIN 3.4 g/dL (3.2-5.5); BILIRUBIN,TOTAL 1.1 mg/dL (0.2-1.0); CALCIUM 8.7 mg/dL (8.5-10.3); CREATININE 1.5 mg/dL (0.4-1.0); POTASSIUM 3.5 mmol/L (3.5-5.0); TOTAL PROTEIN 6.7 g/dL (6.7-8.2)
[2020-04-23 09:42] LABS: PARTIAL THROMBOPLASTIN TIME 30.6 secs (24.9-33.3)
--- NOTE | 2020-04-23 09:42 | XRAY Report ---
PROCEDURE: Chest 1 View X-Ray INDICATIONS: Chest Pain TECHNIQUE: One view of the chest was acquired. COMPARISON: 04/10/2020 FINDINGS: Surgical changes and devices: None. Lungs and pleura: Diffuse interstitial prominence. Mild loss of vascular distinctness. Bilateral ple ural effusions larger on the left. Streaky bibasilar opacities. No new focal consolidations. No pneum othorax. Mediastinum: Mediastinal contours appear stable. Heart size is normal. Bones and chest wall: No suspicious bony lesions. Overlying soft tissues appear unremarkable. IMPRESSION: Findings compatible with pulmonary edema. Concurrent infectious/inflammatory process not completely e xcluded if clinically appropriate. Reviewed by: Lopez Riley MD on 04/23/2020 9:41 AM PST Approved by: Lopez Riley MD on 04/23/2020 9:41 AM PST Station ID: [id number]
[2020-04-23 10:45] LABS: B. PARAPERTUSSIS- RESP PCR PAN NOT DETECTED; B. PERTUSSIS- RESP PCR PANEL NOT DETECTED; C. PNEUMONIAE- RESP PCR PANEL NOT DETECTED; CORONAVIRUS 229E-RESP PCR NOT DETECTED; CORONAVIRUS HKU1-RESP PCR NOT DETECTED; CORONAVIRUS NL63-RESP PCR NOT DETECTED; CORONAVIRUS OC43-RESP PCR NOT DETECTED; HUMAN METAPNEUMOVIRUS NOT DETECTED; INFLUENZA A- RESP PCR PANEL NOT DETECTED; INFLUENZA B - RESP PCR PANEL NOT DETECTED; M. PNEUMONIAE- RESP PCR PANEL NOT DETECTED; PARAINFLUENZA VIRUS 1 NOT DETECTED; PARAINFLUENZA VIRUS 2 NOT DETECTED; PARAINFLUENZA VIRUS 3 NOT DETECTED; PARAINFLUENZA VIRUS 4 NOT DETECTED; RHINOVIRUS/ENTEROVIRUS NOT DETECTED; RSV- RESP PCR PANEL NOT DETECTED; SARS-CoV-2 -RESP PCR PANEL NOT DETECTED
--- NOTE | 2020-04-23 11:55 | ED Physician Documentation ---
History of Present Illness - Stated complaint Stated Complaint: WEAKNESS - Chief complaint Chief Complaint: Abd Pain - History obtained from History obtained from: Patient - Additonal information Additional information: 75-year-old woman with past medical history of heart failure on digoxin, atrial fibrillation and a flutter on Eliquis for the past month and a half, Cardizem rate control,DM2, recent GIB requiring 3 blood transfusions this month p/w generalized weakness progressively worsening over past few days as well as multiple black stools. denies abd pain at present. denies cp, sob but she does have worsening calle. Review of Systems Ten Systems: 10 systems reviewed and negative Constitutional: denies: Fever, Chills GI: denies: Abdominal Pain, Nausea Neurologic: reports: Generalized weakness PD PAST MEDICAL HISTORY - Past Medical History Cardiovascular: Hypertension, High cholesterol, Atrial fibrillation, Murmur Respiratory: None Neuro: None, TIA Endocrine/Autoimmune: Type 2 diabetes GI: Ulcers VISUAL SPECIALIST: None : None HEENT: Chronic hearing loss, Other Psych: Depression, Anxiety Musculoskeletal: Chronic back pain Derm: None - Past Surgical History Past Surgical History: No Ortho: Spine surgery /VISUAL SPECIALIST: Hysterectomy - Present Medications Home Medications: Ambulatory Orders Medication Instructions Recorded Confirmed Amitriptyline HCl 100 mg PO QPM 07/13/19 07/25/19 Aspirin [Aspirin EC] 81 mg PO DAILY 07/13/19 07/25/19 Glipizide [Glipizide Xl] 5 mg PO DAILY 07/13/19 07/25/19 Metformin HCl 1,000 mg PO BIDWM 07/13/19 07/25/19 Apixaban [Eliquis] 5 mg PO BID #60 tablet 07/16/19 07/25/19 Atorvastatin Calcium 80 mg PO QPM #30 tablet 07/16/19 07/25/19 Digoxin 125 mcg PO DAILY #30 tablet 07/16/19 07/25/19 diltiaZEM CD [Cardizem Cd] 240 mg PO DAILY #30 capsule 07/16/19 07/25/19 Amiodarone [Pacerone] 200 mg PO DAILY 04/23/20 Furosemide [Lasix] 20 mg PO DAILY 04/23/20 Metoprolol Succinate [Toprol Xl] 50 mg PO BID 04/23/20 Omeprazole 40 mg PO BID 04/23/20 Pantoprazole [Protonix] 40 mg PO BID 04/23/20 Rivaroxaban [Xarelto] 20 mg PO DAILY 04/23/20 Warfarin [Coumadin] 5 mg PO DAILY 04/23/20 - Allergies Allergies/Adverse Reactions: Allergies Allergy/AdvReac Type Severity Reaction Status Date / Time No Known Drug Allergies Allergy Verified 04/23/20 09:47 - Social History Does the pt smoke?: Yes Smoking Status: Current every day smoker Does the pt drink ETOH?: No Does the pt have substance abuse?: No - Immunizations Immunizations are current?: Yes Immunizations: TDAP >10years/unknown - POLST Patient has POLST: No POLST Status: Full Code PD ED PE NORMAL - Vitals Vital signs reviewed: Yes - General General: Alert and oriented X 3, No acute distress, Other (elderly appearing) - HEENT HEENT: Atraumatic, PERRL, EOMI - Neck Neck: Supple, no meningeal sign - Cardiac Cardiac: Other (tachycardic rate, regular rhythm) - Respiratory Respiratory: No respiratory distress, Other (BL dependent crackles) - Abdomen Abdomen: Non tender, Non distended - Female Female : Deferred - Rectal Rectal: Deferred - Back Back: No spinal TTP - Derm Derm: Normal color, Warm and dry - Extremities Extremities: No deformity, Other (BL 1+ pitting edema) - Neuro Neuro: Alert and oriented X 3 - Psych Psych: Normal mood, Normal affect Results - Vitals Vitals: Vital Signs - 24 hr 04/23/20 04/23/20 04/23/20 09:02 09:35 09:41 Temperature 36.3 C L Heart Rate 122 H 120 H 121 H Respiratory 25 H 26 H 27 H Rate Blood Pressure 132/97 H 85/71 L 88/69 L O2 Saturation 100 92 92 04/23/20 04/23/20 04/23/20 09:50 09:56 10:01 Temperature Heart Rate 121 H 122 H 121 H Respiratory 24 22 26 H Rate Blood Pressure 91/66 91/62 90/64 O2 Saturation 95 93 100 04/23/20 04/23/20 04/23/20 10:07 10:30 11:21 Temperature 36.8 C Heart Rate 122 H 121 H 121 H Respiratory 24 16 20 Rate Blood Pressure 94/71 95/68 92/68 O2 Saturation 93 95 03/04/1404/23/20 04/23/20 11:36 12:00 12:21 Temperature 36.5 C Heart Rate 120 H 123 H 123 H Respiratory 18 20 20 Rate Blood Pressure 92/74 95/74 101/74 O2 Saturation 95 95 94 04/23/20 12:50 Temperature Heart Rate 123 H Respiratory 31 H Rate Blood Pressure 92/78 O2 Saturation 100 Oxygen O2 Source Room air - EKG (time done) 0904 Rate: Rate (enter#) (122) Rhythm: Atrial flutter 1145 Rate: Rate (enter#) (122) Rhythm: Atrial flutter - Labs Labs: Laboratory Tests 04/23/20 04/23/20 04/23/20 09:14 09:14 09:14 WBC 6.4 RBC 3.50 L Hgb 10.2 L Hct 33.4 L MCV 95.4 MCH 29.1 MCHC 30.5 L RDW 25.9 H Plt Count 220 MPV 11.2 H Neut # (Auto) 4.6 Lymph # (Auto) 1.1 L [place] # (Auto) 0.5 Eos # (Auto) 0.0 Baso # (Auto) 0.1 Absolute Nucleated RBC 0.04 Nucleated RBC % 0.6 Manual Slide Review Indicated RBC Morph Micro Appear 1+ SCHISTOCYTES PT 30.7 H INR 2.9 H APTT 30.6 Sodium 141 Potassium 3.5 Chloride 99 L Carbon Dioxide 28 Anion Gap 14.0 H BUN 23 H Creatinine 1.5 H Estimated GFR (MDRD) 34 L Glucose 143 H Calcium 8.7 Total Bilirubin 1.1 H AST 36 ALT 29 Alkaline Phosphatase 82 Troponin I High Sens B-Natriuretic Peptide Total Protein 6.7 Albumin 3.4 Globulin 3.3 Albumin/Globulin Ratio 1.0 Lipase 29 Nasal Adenovirus (PCR) Nasal B. parapertussis DNA (PCR) Nasal Coronavir 229E PCR Nasal Coronavir HKU1 PCR Nasal Coronavir NL63 PCR Nasal Coronavir OC43 PCR Nasal Enterovir/Rhinovir PCR Nasal Influenza B PCR Nasal Influenza A PCR Nasal Parainfluen 1 PCR Nasal Parainfluen 2 PCR Nasal Parainfluen 3 PCR Nasal Parainfluen 4 PCR Nasal RSV (PCR) Nasal B.pertussis DNA PCR Nasal C.pneumoniae (PCR) [place] Human Metapneumo PCR Nasal M.pneumoniae (PCR) Nasal SARS-CoV-2 (PCR) Blood Type Blood Type Recheck Antibody Screen 04/23/20 04/23/20 04/23/20 09:14 09:14 09:14 WBC RBC Hgb Hct MCV MCH MCHC RDW Plt Count MPV Neut # (Auto) Lymph # (Auto) [place] # (Auto) Eos # (Auto) Baso # (Auto) Absolute Nucleated RBC Nucleated RBC % Manual Slide Review RBC Morph Micro Appear PT INR APTT Sodium Potassium Chloride Carbon Dioxide Anion Gap BUN Creatinine Estimated GFR (MDRD) Glucose Calcium Total Bilirubin AST ALT Alkaline Phosphatase Troponin I High Sens 18.2 H* B-Natriuretic Peptide 4668 H Total Protein Albumin Globulin Albumin/Globulin Ratio Lipase Nasal Adenovirus (PCR) Nasal B. parapertussis DNA (PCR) Nasal Coronavir 229E PCR Nasal Coronavir HKU1 PCR Nasal Coronavir NL63 PCR Nasal Coronavir OC43 PCR Nasal Enterovir/Rhinovir PCR Nasal Influenza B PCR Nasal Influenza A PCR Nasal Parainfluen 1 PCR Nasal Parainfluen 2 PCR Nasal Parainfluen 3 PCR Nasal Parainfluen 4 PCR Nasal RSV (PCR) Nasal B.pertussis DNA PCR Nasal C.pneumoniae (PCR) [place] Human Metapneumo PCR Nasal M.pneumoniae (PCR) Nasal SARS-CoV-2 (PCR) Blood Type Blood Type Recheck A POSITIVE Antibody Screen 04/23/20 04/23/20 09:32 09:41 WBC RBC Hgb Hct MCV MCH MCHC RDW Plt Count MPV Neut # (Auto) Lymph # (Auto) [place] # (Auto) Eos # (Auto) Baso # (Auto) Absolute Nucleated RBC Nucleated RBC % Manual Slide Review RBC Morph Micro Appear PT INR APTT Sodium Potassium Chloride Carbon Dioxide Anion Gap BUN Creatinine Estimated GFR (MDRD) Glucose Calcium Total Bilirubin AST ALT Alkaline Phosphatase Troponin I High Sens B-Natriuretic Peptide Total Protein Albumin Globulin Albumin/Globulin Ratio Lipase Nasal Adenovirus (PCR) NOT DETECTED Nasal B. parapertussis DNA (PCR) NOT DETECTED Nasal Coronavir 229E PCR NOT DETECTED Nasal Coronavir HKU1 PCR NOT DETECTED Nasal Coronavir NL63 PCR NOT DETECTED Nasal Coronavir OC43 PCR NOT DETECTED Nasal Enterovir/Rhinovir PCR NOT DETECTED Nasal Influenza B PCR NOT DETECTED Nasal Influenza A PCR NOT DETECTED Nasal Parainfluen 1 PCR NOT DETECTED Nasal Parainfluen 2 PCR NOT DETECTED Nasal Parainfluen 3 PCR NOT DETECTED Nasal Parainfluen 4 PCR NOT DETECTED Nasal RSV (PCR) NOT DETECTED Nasal B.pertussis DNA PCR NOT DETECTED Nasal C.pneumoniae (PCR) NOT DETECTED [place] Human Metapneumo PCR NOT DETECTED Nasal M.pneumoniae (PCR) NOT DETECTED Nasal SARS-CoV-2 (PCR) NOT DETECTED Blood Type A POSITIVE Blood Type Recheck Antibody Screen NEGATIVE Procedures - Cardioversion Attempt 1 Time of attempt: 13:00 Indication: Clinically unstable (hypotensive, tachycardic in aflutter at fixed rate 122. on eliquis X1.5 months) Risks, benefits, alternatives explained to: Pt Prep: IV, O2, hospital monitor, Pulse ox, Airway equip Meds: Etomidate (10mg) CS via: AP approach Sync: Biphasic, 50j Post cardioversion rhythm: A-fib Performed by: ED MD PD MEDICAL DECISION MAKING - ED course ED course: 75-year-old woman with history of A fib/flutter on eliquis for the past month and a half, gib, chf on digoxin, presented with progressive generalized weakness. afebrile on rectal exam without acute bleeding. found to be in fixed rhythm 122 in ed, ekg aflutter. cardioversion performed at 50J with reversion to afib ranging from night 90s to low 100s. patient awake and talking, responsive after 15 minutes of sedation. Labwork showing elevated BNP consistent with volume overload, likely related to her multiple blood transfusions this month. IV lasix ordered. d/w hospitalist who will admit ICU. Departure - Departure Disposition: 66 [facility] DC/Xfer Clinical Impression: CHF exacerbation, Atrial flutter, Weakness
[2020-04-23] MEDS ORDERED: ONDANSETRON ODT 4 MG TABLET TL PRN (12:27)
[2020-04-23] MEDS ORDERED: ONDANSETRON 4 MG/2 ML VIAL IVP PRN (12:27)
[2020-04-23] MEDS ORDERED: diltiaZEM INJ 5 MG/ML VIAL IVP PRN (12:47)
[2020-04-23] MEDS ORDERED: ETOMIDATE 40 MG/20 ML VIAL IVP STA (12:47)
[2020-04-23] MEDS ORDERED: FUROSEMIDE 40 MG/4 ML VIAL IVP STA (12:50)
[2020-04-23] MEDS ORDERED: LACTATED RINGERS 1,000 ML IV SCH (13:00)
--- NOTE | 2020-04-23 15:21 | HISTORY & PHYSICAL EXAMINATION ---
Chief Complaint - Chief Complaint Chief Complaint: generalized weakness, aflutter with RVR History of Present Illness - Admitted From Admitted From:: ED - History Obtained From History obtained from: patient, daughter, chart review Exam Limitations: Pt extremely hard of hearing, also had difficulty w/written communication - History of Present Illness HPI Comment/Other: 75 year old female with past hx including heart failure on digoxin, afib and af lutter on Eliquis x1.5 months, Cardizem rate controlled, recent GIB requiring 3 transufions this month presented to the ED with generalized weakness that has progressively worsened over the past few days as well as abdominal pain and multiple black stools (last one evening 04/22). Pt is deaf, history obtained by writing on paper, discussion with daughter and per chart review. She was recently hospitalized at [facility] in [place] for GIB. She required 3 blood transfusions for hbg 6.4. She underwent 4 cardioversions as well as a JOEL cardioversion. She was also seen by Infectious Disease for unclear reasons, and daughter reports she was started on IV antibiotics 04/16 meant to last 3 weeks. Daughter reports she was told the antibiotics were for possible infection related to her blood transfusion. She discharged home with family and home health, as the daughter had moved home to help her mother after her admission. Pt refused to allow home health into the home and refused services. Per report she has had multiple black stools over the past 3 days, last 1 was last night. Denies bright red blood per rectum, hematochezia or hematemesis. Denies dizziness or lightheadedness but does have a slight headache. On presentation to the ED she complained of generalized weakness and right abdominal pain. She was found to be in a-flutter per EKG with a fixed rhythm of 122. Cardioversion was performed in the ED, reverted to afib ranging 90-100s. She denies shortness of breath but reports she has dyspnea with exertion. She reports right abdominal pain x3 weeks ("since I discharged"), but is unable to describe or quantify and is not sure what makes it better or worse. Lab work done in the ED revealed a new SARA, with BUN 23 and creatinine 1.5. Her blood sugars are slightly elevated as are her troponins (18.2) and BNP 4668. Lasix was ordered given concern for fluid overload in setting of multiple blood transfusions this month. She has not urinated since prior to arrival in the ED. Last BM was last night. Pt has also fallen x3 this month, unclear if for mechanical or physiological reasons. She reports she fell getting out of the car on her way to the [facility] clinic for abx infusion and was later seen in the ED that day for right hip and right rib contusions. No fracture. She also fell at home and in the bathtub. Denies hitting her head or LOC at either fall. History - Past Medical History Cardiovascular: reports: Hypertension, High cholesterol, Atrial fibrillation, Murmur Respiratory: reports: None Neuro: reports: None, TIA Endocrine/Autoimmune: reports: Type 2 diabetes GI: reports: Ulcers TRAFFIC CONTROL SUPERVISOR: reports: None : reports: None HEENT: reports: Chronic hearing loss, Other Psych: reports: Depression, Anxiety Musculoskeletal: reports: Chronic back pain Derm: reports: None MRSA Hx?: No - Past Surgical History Ortho: reports: Spine surgery /TRAFFIC CONTROL SUPERVISOR: reports: Hysterectomy - Family & Social History Family History: Mother: Cancer (unspecified), Father: Cancer, Brother: [place] Living arrangement: At home Living Situation: With family (daughter currently living with her to help care for her) Social History Notes: Patient smokes about 1/2-1 pack of cigarettes daily. She has been smoking for 50 years. She denies any alcohol or illicit drug use. - Substance History Use: Uses substance without health or social issues: Tobacco - POLST Patient has POLST: No POLST Status: DNR Meds/Allgy - Home Medications Home Medications: Ambulatory Orders Medication Instructions Recorded Confirmed Amitriptyline HCl 100 mg PO QPM 07/13/19 04/23/20 Glipizide [Glipizide Xl] 5 mg PO DAILY 07/13/19 04/23/20 Atorvastatin Calcium 80 mg PO QPM #30 tablet 07/16/19 04/23/20 Amiodarone [Pacerone] 200 mg PO DAILY 04/23/20 04/23/20 Furosemide [Lasix] 20 mg PO DAILY 04/23/20 04/23/20 Magnesium Oxide [Mag Ox] 400 mg PO TID 04/23/20 04/23/20 Metoprolol Succinate [Toprol Xl] 50 mg PO BID 04/23/20 04/23/20 Pantoprazole [Protonix] 40 mg PO BID 04/23/20 04/23/20 Rivaroxaban [Xarelto] 20 mg PO HS 04/23/20 04/23/20 cephALEXin [Keflex] 500 mg PO TID 04/23/20 04/23/20 metroNIDAZOLE [Flagyl] 500 mg PO TID 04/23/20 04/23/20 - Allergies Allergies/Adverse Reactions: Allergies Allergy/AdvReac Type Severity Reaction Status Date / Time No Known Drug Allergies Allergy Verified 04/23/20 09:47 Review of Systems - Constitutional Constitutional: reports: Weakness. denies: Fever, Chills, Poor appetite - Eyes Eyes: denies: Pain, Blurred vision, Vision loss - Ears, Nose & Throat Ears, Nose & Throat: reports: Hearing loss (chronic hearing loss). denies: Ear pain - Cardiovascular Cariovascular: reports: Irregular heart rate. denies: Chest pain, Lightheadedness, Syncope - Respiratory Respiratory: reports: SOB with exertion. denies: Cough, Hemoptysis, SOB at rest - Gastrointestinal Gastrointestinal: reports: Abdominal pain (RUQ and RLQ x3 weeks, not sure what makes better or worse, unable to score), Black stools (reports x3 days, last was last night 04/22). denies: Constipation, Diarrhea, Nausea, Vomiting, Coffee grounds emesis - Genitourinary Genitourinary: denies: Dysuria, Incontinence - Musculoskeletal Musculoskeletal: reports: Back pain - Integumentary Integumentary: denies: Rash, Pruritis - Neurological Neurological: reports: General weakness, Headache. denies: Dizziness, Numbness - Psychiatric Psychiatric: reports: Depression, Anxiety - Endocrine Endocrine: denies: Polyuria, Polydypsia, Polyphagia - Hematologic/Lymphatic Hematologic/Lymphatic: reports: Bruising (right hip after a fall) - All Other Systems All Other Systems: reports: Other (felt that her left breast was swollen and larger than her right this morning) Prior Level of Functionality: Per daughter pt is weaker and requiring more help at home with ADLs and getting basic house work done. Home health was set up after her 04/16 discharge but Pt refused them. Exam - Vital Signs Reviewed Vital Signs: Yes Vital Signs: Vital Signs x48h Temp Pulse Resp BP Pulse Ox 04/23/20 13:34 115 H 25 H 98/75 96 04/23/20 13:25 109 H 26 H 96/68 100 04/23/20 13:22 109 H 25 H 105/68 100 04/23/20 13:18 104 H 24 101/84 H 100 04/23/20 13:11 111 H 25 H 98/71 100 04/23/20 13:07 115 H 22 93/79 100 04/23/20 13:04 120 H 21 114/98 H 99 04/23/20 13:01 110 H 19 87/57 L 92 04/23/20 12:57 102 H 20 105/79 93 04/23/20 12:50 123 H 31 H 92/78 100 04/23/20 12:21 123 H 20 101/74 94 04/23/20 12:00 123 H 20 95/74 95 04/23/20 11:36 36.5 C 120 H 18 92/74 95 04/23/20 11:21 36.8 C 121 H 20 92/68 95 04/23/20 10:30 121 H 16 95/68 04/23/20 10:07 122 H 24 94/71 93 04/23/20 10:01 121 H 26 H 90/64 100 04/23/20 09:56 122 H 22 91/62 93 04/23/20 09:50 121 H 24 91/66 95 04/23/20 09:41 121 H 27 H 88/69 L 92 04/23/20 09:35 120 H 26 H 85/71 L 92 04/23/20 09:02 36.3 C L 122 H 25 H 132/97 H 100 - Physical Exam General Appearance: positive: No acute distress Eyes Bilateral: positive: Normal inspection, PERRL ENT: positive: ENT inspection nml, Dry mucous membranes Neck: positive: Nml inspection, Thyroid nml Respiratory: positive: Chest non-tender, No respiratory distress, Breath sounds nml Cardiovascular: positive: Irregularly irregular, Tachycardia Peripheral Pulses: positive: 2+ Abdomen: positive: No organomegaly, Nml bowel sounds, No distention, Tenderness (RLQ/RUQ to light and deep palpation). negative: Guarding, Rebound, Hepatomegaly, Splenomegaly Skin: positive: Pallor, Other (bruising over right hip/lateral thigh) Extremities: positive: No pedal edema. negative: Non-tender (R hip tender after fall 3 weeks ago (x-ray negative at that time), bruising present) Neurologic/Psychiatric: positive: Oriented x3 Sepsis Event Note (H) - Evaluation Current Stage of Sepsis: Ruled out Conclusion/Plan - Problem List (1) Atrial flutter with rapid ventricular response Conclusion/Plan: Found to be in aflutter on EKG in the ED, rate of 122. She has a history of afib and aflutter, takes Eliquis at home. Per report from her daughter underwent 4 cardioversions in [facility] as well as a JOEL cardioversion. She was cardioverted in the ED, reverted to atrial fibrillation with rate in the 90- 110s. She was admitted to ICU for close monitoring. 1. Telemetry 2. Hold Eliquis given report of black stools and concern for GIB (2) Afib Conclusion/Plan: History of afib, on Eliquis. Multiple cardioversions done in [place], one done in the ER today. Current rate ranging from 90-110s. Will hold the Eliquis in the context of concern for GIB. Will apply SCDs for DVT prophylaxis at this time. Admission troponin of 18.2, likely related to aflutter and afib. She does have a history of CHF, will monitor for signs of fluid overload. 1. Telemetry 2. Hold Eliquis; SCDs for DVT prophylaxis 3. Trend troponins Q8H x3 4. Obtain records from [facility] in [place] from prior hospital stay Qualifiers: Atrial fibrillation type: paroxysmal Qualified Code(s): I48.0 - Paroxysmal atrial fibrillation (3) GI bleed Conclusion/Plan: Pt had a recent GIB while hospitalized in [place]. Per her daughter she was transfused x3, with Hgb 6.4--->8. Over the past 3 days patient has had multiple loose black stools. No hematochezia or hematemesis. Takes Eliquis at baseline, PT/INR are 30.7/2.9 and hgb 10.2. No BM today. 1. Trend Hgb Q8H x 24H, transfuse for hgb <7 2. General Surgery consult (4) CHF exacerbation Conclusion/Plan: Last Echo in [facility] is 07/12/2019 which showed EF 40-50%, mild CHF. Her superintendent greens is in [place] and per her daughter she takes all of her medications consistently, all last doses were this morning prior to arriving in the ED. BNP of 4668 today, no SOB except with exertion. May be related to 3 prior blood transfusions this month though this is unclear. Given IV lasix in the ED, has not urinated yet. Will continue to monitor. 1. Continue home medications 2. Daily weights 3. Monitor I/Os Qualifiers: Heart failure type: combined systolic and diastolic Qualified Code(s): I50.43 - Acute on chronic combined systolic (congestive) and diastolic (congestive) heart failure (5) SARA (acute kidney injury) Conclusion/Plan: BUN 23 and creatinine 1.5 today. She has not urinated since before coming to th e ED, though given lasix early this afternoon and nursing performing bladder scan just after my assessment. Previous creatinine of 1.3 in July 2019, so this may be more her baseline and related to diabetes. Will continue to monitor. 1. Trend BUN/Creatinine 2. Monitor I/Os 3. IVF while NPO (6) Diabetes mellitus Conclusion/Plan: No recent A1C. Blood sugars in the 140s today. Takes Glipizide at home, last dose this morning. She is NPO while being monitored for GIB, will start on SSI for now. 1. SSI 2. A1C with morning labs tomorrow 3. 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 Difficult to test strength on exam today given her hearing difficulties and difficulty with reading my written instructions. 1. PT consult (8) Contusion, hip Conclusion/Plan: Stable. Fell 04/10 when getting out of car at [facility] infusion clinic. Seen in the ED, x-rays negative for fracture. The hip region is ecchymotic and painful but she does have range of motion at the site. 1. Analgesia PRN 2. Alternate ice packs and warm packs PRN Qualifiers: Encounter type: subsequent encounter Laterality: right Qualified Code(s): S70.01XD - Contusion of right hip, subsequent encounter (9) Depression Conclusion/Plan: Has a prior diagnosis of depression, for which she takes amitriptoline. 1. Continue home meds. Qualifiers: Depression Type: unspecified Qualified Code(s): F32.9 - Major depressive disorder, single episode, unspecified (10) Hearing impaired person Conclusion/Plan: Hearing impaired at baseline due to congenital deafness per chart review. Has some success with lip reading but prefers to write out communication. Able to verbalize appropriately. Qualifiers: Laterality: bilateral Qualified Code(s): H91.93 - Unspecified hearing loss, bilateral (11) PVD (peripheral vascular disease) Conclusion/Plan: Prior records indicate a history of PVD for which she was taking a statin and aspirin with plan to follow up outpatient with Vascular Surgery. Currently taking Atorvastatin and Eliquis, no aspirin. 1. Continue Atorvastatin 2. SCDs for DVT prophylaxis, Eliquis held for concern for GIB (12) TIA (transient ischemic attack) Conclusion/Plan: Hx TIA June 2019. 1. Resume Eliquis when able. (13) History of fall Conclusion/Plan: Has fallen x3 in the last month. Seen in the ED 04/10 after falling getting out of the car. Has not hit her head, no LOC. Denies dizziness or lightheadedness but it is unclear what is causing the falls other than possible weakness. I wonder if her arrhythmias are causing syncope though she has denied. 1. Fall precautions 2. PT consult - Lab Results Lab results reviewed: Yes Fish Bones: 04/23/20 15:43 04/23/20 09:14 - EKG Results EKG Interpreted Independently: Yes Core Measures - Anticipated LOS I expect patient to be DC'd or transferred within 96 hours.: Yes - Issues Hospital Issues and Management Plan: Recently cardioverted x4 in [place], may need to transfer back to [place] where her superintendent greens is located. She is cardioverted x1 today - DVT/VTE - Prophylaxis VTE/DVT Device ordered at admit?: Yes VTE/DVT Prophylaxis med ordered at admit?: No Not Ordered - Medical Reason: Contraindicated (concern for GIB, prophylaxis medication on hold)
--- NOTE | 2020-04-23 15:39 | PHARMACY PROGRESS NOTE ---
- Best Possible Medication History Admit Date and Time: 04/23/20 1257 Processed by: Pharmacy Medication History completed: Yes Patient Interview: Pt unable to participate (Pt hard of hearing, RN Pauly spoke with family member who had medication list) Secondary Source(s): Written medication list, Other family member, Insurance records Pt with recent admit, appears based on recent fills and medication list from family that medications have been changed very recently. Updated with med list from family. As the person ultimately responsible for medication therapy, providers are able to order a medication from an existing home medication list in [facility] via the "Reconcile Routine" prior to Confirmation of that medication by sales support specialist. Such practice is discouraged except when the physician, in their clinical judgment, deems that a medical need exists for a medication without regard to previous use.
[2020-04-23] MEDS: DIGOXIN 500 MCG/2 ML AMP IVP SCH (15:52)
[2020-04-23 15:53] LABS: BASOPHILS % (AUTO) 0.9 %; EOSINOPHILS % (AUTO) 15.2 %; HCT - HEMATOCRIT 32.9 % (37.0-47.0); HGB - HEMOGLOBIN 9.8 g/dL (12.0-16.0); MEAN CORPUSCULAR HEMOGLOBIN 28.5 pg (27.0-31.0); MEAN CORPUSCULAR HGB CONC 29.8 g/dL (32.0-36.0); MEAN CORPUSCULAR VOLUME 95.6 fL (81.0-99.0); MEAN PLATELET VOLUME 10.6 fL (7.9-10.8); MONOCYTES % (AUTO) 9.3 %; NEUTROPHILS % (AUTO) 52.2 %; PLT - PLATELET COUNT 207 10^3/uL (130-450); RED BLOOD COUNT 3.44 10^6/uL (4.20-5.40); RED CELL DISTRIBUTION WIDTH 25.9 % (12.0-15.0); WHITE BLOOD COUNT 6.9 x10^3/uL (4.8-10.8)
[2020-04-23 15:55] LABS: ABNORMAL LYMPHS % (MANUAL) 0 %
[2020-04-23] MEDS: PANTOPRAZOLE 40 MG VIAL IVP SCH ×2 (15:55→20:50)
[2020-04-23] MEDS: POTASSIUM CHLOR 10 MEQ/100 ML 10 MEQ/100 ML BAG IV SCH ×4 (15:58→20:43)
[2020-04-23 16:27] LABS: MAGNESIUM 1.9 mg/dL (1.7-2.8); PHOSPHORUS 4.3 mg/dL (2.5-4.6)
[2020-04-23 16:37] LABS: BAND NEUTROPHILS % (MANUAL) 1 %; EOSINOPHILS # (MANUAL) 0.1 10^3/uL (0-0.7); LYMPHOCYTES % (MANUAL) 14 %; MONOCYTES # (MANUAL) 0.3 10^3/uL (0.0-1.0); NEUTROPHILS # (MANUAL) 5.5 10^3/uL (1.5-6.6); NUCLEATED RBC (MANUAL) 2 %
[2020-04-23 16:38] LABS: DIFFERENTIAL COMMENT MANUAL DIFFERENTIAL; PLATELET ESTIMATE, MANUAL NORMAL (130-450,000) (NORMAL); PLATELET MORPHOLOGY NORMAL APPEARANCE (NORMAL)
[2020-04-23] MEDS: SODIUM CHLORIDE FLUSH 0.9% 10 ML SYRINGE IVP SCH ×2 (18:17→23:39)
[2020-04-23] MEDS: INSULIN REGULAR HUMAN 300 UNIT/3 ML VIAL SUBQ SCH ×2 (19:03→23:43)
[2020-04-23] MEDS: oxyCODONE 5 MG TABLET PO PRN (19:47)
[2020-04-23] MEDS: SODIUM CHLORIDE FLUSH 0.9% 10 ML SYRINGE IVP PRN (20:51)
[2020-04-23] MEDS ORDERED: INSULIN GLARGINE 300 UNIT/3 ML PEN SUBQ SCH (21:00)
[2020-04-23 21:34] LABS: BASOPHILS # (AUTO) 0.1 10^3/uL (0.0-0.1); EOSINOPHILS # (AUTO) 0.1 10^3/uL (0.0-0.7); EOSINOPHILS % (AUTO) 1.7 %; HCT - HEMATOCRIT 30.4 % (37.0-47.0); HGB - HEMOGLOBIN 9.3 g/dL (12.0-16.0); LYMPHOCYTES # (AUTO) 1.9 10^3/uL (1.5-3.5); LYMPHOCYTES % (AUTO) 24.8 %; MEAN CORPUSCULAR HEMOGLOBIN 28.1 pg (27.0-31.0); MEAN CORPUSCULAR HGB CONC 30.6 g/dL (32.0-36.0); MEAN CORPUSCULAR VOLUME 91.8 fL (81.0-99.0); MEAN PLATELET VOLUME 10.9 fL (7.9-10.8); MONOCYTES # (AUTO) 0.9 10^3/uL (0.0-1.0); MONOCYTES % (AUTO) 11.1 %; NEUTROPHILS # (AUTO) 4.7 10^3/uL (1.5-6.6); NEUTROPHILS % (AUTO) 60.1 %; NRBC ABSOLUTE COUNT (AUTO) 0.05 x10^3/uL; NUCLEATED RED BLOOD CELLS AUTO 0.6 /100WBC; PLT - PLATELET COUNT 201 10^3/uL (130-450); RED BLOOD COUNT 3.31 10^6/uL (4.20-5.40); RED CELL DISTRIBUTION WIDTH 25.5 % (12.0-15.0); WHITE BLOOD COUNT 7.8 x10^3/uL (4.8-10.8)
[2020-04-23 21:37] LABS: SLIDE REVIEW? Indicated
[2020-04-23 22:02] LABS: PLATELET ESTIMATE, MANUAL NORMAL (130-450,000) (NORMAL); PLATELET MORPHOLOGY NORMAL APPEARANCE (NORMAL)
[2020-04-23] MEDS ORDERED: DEXTROSE 50% ABBOJECT 25 GM/50 ML SYRINGE IVP ONE (23:34)
[2020-04-23] MEDS: traZODone 50 MG TABLET PO SCH (23:39)
[2020-04-24 04:24] LABS: CALCIUM 8.5 mg/dL (8.5-10.3); CREATININE 1.4 mg/dL (0.4-1.0); POTASSIUM 4.2 mmol/L (3.5-5.0)
[2020-04-24 04:44] LABS: MAGNESIUM 1.9 mg/dL (1.7-2.8); PHOSPHORUS 4.2 mg/dL (2.5-4.6)
[2020-04-24] MEDS ORDERED: DEXTROSE 50% ABBOJECT 25 GM/50 ML SYRINGE IVP ONE ×3 (05:50→16:47)
[2020-04-24] MEDS: INSULIN REGULAR HUMAN 300 UNIT/3 ML VIAL SUBQ SCH ×3 (05:55→17:00)
[2020-04-24] MEDS: DIGOXIN 500 MCG/2 ML AMP IVP SCH (09:41)
[2020-04-24] MEDS: PANTOPRAZOLE 40 MG VIAL IVP SCH ×2 (09:41→21:24)
[2020-04-24] MEDS: SODIUM CHLORIDE FLUSH 0.9% 10 ML SYRINGE IVP SCH ×3 (09:41→23:41)
--- NOTE | 2020-04-24 10:20 | PROVIDER PROGRESS NOTE ---
Subjective - Prog Note Date Prog Note Date: 04/24/20 - Subjective Pt reports feeling: Improved (Pt sleeping on my exam, appears comfortable. Using a face mask for oxygen as she has been breathing through her mouth; no apparent pain on exam. Nursing reports no stool this admission, no signs of bleeding. Pt wondering when she can eat per nursing.) Objective - Vital Signs/Intake & Output Reviewed Vital Signs: Yes Vital Signs: Vital Signs Temp Pulse Pulse Resp BP Pulse Ox 04/24/20 10:00 88 11 L 103/92 H 99 04/24/20 09:41 107 H 04/24/20 09:00 96 17 100/68 96 04/24/20 08:00 36.4 C L 104 H 12 94/64 97 04/24/20 07:00 95 16 93/77 96 Intake & Output: Intake & Output 04/21/20 04/22/20 04/23/20 04/24/20 23:59 23:59 23:59 23:59 Intake Total 910 Output Total 300 Balance 910 -300 - Objective General Appearance: positive: No acute distress Eyes Bilateral: positive: Normal inspection, PERRL ENT: positive: ENT inspection nml, No signs of dehydration Neck: positive: Nml inspection Respiratory: positive: Chest non-tender, No respiratory distress, Breath sounds nml Cardiovascular: positive: Irregularly irregular Abdomen: positive: Non-tender, No organomegaly, Nml bowel sounds, No distention Skin: positive: Color nml Extremities: positive: Non-tender, Full ROM, Nml appearance, No pedal edema Neurologic/Psychiatric: positive: Oriented x3 - Lab Results Fish Bones: 04/23/20 21:28 04/24/20 03:55 Other Labs: Lab Results x24hrs 04/24/20 04/24/20 04/23/20 Range/Units 03:55 03:55 21:28 WBC 7.8 (4.8-10.8) x10^3/uL RBC 3.31 L (4.20-5.40) 10^6/uL Hgb 9.3 L (12.0-16.0) g/dL Hct 30.4 L (37.0-47.0) % MCV 91.8 (81.0-99.0) fL MCH 28.1 (27.0-31.0) pg MCHC 30.6 L (32.0-36.0) g/dL RDW 25.5 H (12.0-15.0) % Plt Count 201 (130-450) 10^3/uL MPV 10.9 H (7.9-10.8) fL Neut # (Auto) 4.7 Lymph # (Auto) 1.9 [place] # (Auto) 0.9 Eos # (Auto) 0.1 Baso # (Auto) 0.1 Absolute Nucleated RBC 0.05 Total Counted Band Neuts % (Manual) (0 - 10) % Abnorm Lymph % (Manual) % Nucleated RBC % 0.6 Neutrophils # (Manual) (1.5-6.6) 10^3/uL Lymphocytes # (Manual) (1.5-3.5) 10^3/uL Monocytes # (Manual) (0.0-1.0) 10^3/uL Eosinophils # (Manual) (0-0.7) 10^3/uL Basophils # (Manual) (0-0.1) 10^3/uL Nucleated RBCs % Differential Comment Manual Slide Review Indicated Platelet Estimate NORMAL (130-450,000) (NORMAL) Platelet Morphology NORMAL APPEARANCE (NORMAL) RBC Morph Micro Appear 2+ POIKILOCYTOSIS (NORMAL) Sodium 139 (135-145) mmol/L Potassium 4.2 (3.5-5.0) mmol/L Chloride 101 (101-111) mmol/L Carbon Dioxide 30 (21-32) mmol/L Anion Gap 8.0 (6-13) BUN 22 H (6-20) mg/dL Creatinine 1.4 H (0.4-1.0) mg/dL Estimated GFR (MDRD) 37 L (>89) Glucose 88 (70-100) mg/dL Calcium 8.5 (8.5-10.3) mg/dL Phosphorus 4.2 (2.5-4.6) mg/dL Magnesium 1.9 (1.7-2.8) mg/dL Troponin I High Sens (2.3-14.8) ng/L B-Natriuretic Peptide (5-100) pg/mL Nasal Adenovirus (PCR) Nasal B. parapertussis DNA (PCR) Nasal Coronavir 229E PCR Nasal Coronavir HKU1 PCR Nasal Coronavir NL63 PCR Nasal Coronavir OC43 PCR Nasal Enterovir/Rhinovir PCR Nasal Influenza B PCR Nasal Influenza A PCR Nasal Parainfluen 1 PCR Nasal Parainfluen 2 PCR Nasal Parainfluen 3 PCR Nasal Parainfluen 4 PCR Nasal RSV (PCR) Nasal Screen MRSA (PCR) (NEGATIVE) Nasal B.pertussis DNA PCR Nasal C.pneumoniae (PCR) Collin Human Metapneumo PCR Nasal M.pneumoniae (PCR) Nasal SARS-CoV-2 (PCR) Blood Type Blood Type Recheck Antibody Screen 04/23/20 04/23/20 04/23/20 Range/Units 15:43 15:43 15:43 WBC 6.9 (4.8-10.8) x10^3/uL RBC 3.44 L (4.20-5.40) 10^6/uL Hgb 9.8 L (12.0-16.0) g/dL Hct 32.9 L (37.0-47.0) % MCV 95.6 (81.0-99.0) fL MCH 28.5 (27.0-31.0) pg MCHC 29.8 L (32.0-36.0) g/dL RDW 25.9 H (12.0-15.0) % Plt Count 207 (130-450) 10^3/uL MPV 10.6 (7.9-10.8) fL Neut # (Auto) Not Reportable Lymph # (Auto) Not Reportable [place] # (Auto) Not Reportable Eos # (Auto) Not Reportable Baso # (Auto) Not Reportable Absolute Nucleated RBC Not Reportable Total Counted 100 Band Neuts % (Manual) 1 (0 - 10) % Abnorm Lymph % (Manual) 0 % Nucleated RBC % Not Reportable Neutrophils # (Manual) 5.5 (1.5-6.6) 10^3/uL Lymphocytes # (Manual) 1.0 L (1.5-3.5) 10^3/uL Monocytes # (Manual) 0.3 (0.0-1.0) 10^3/uL Eosinophils # (Manual) 0.1 (0-0.7) 10^3/uL Basophils # (Manual) 0.0 (0-0.1) 10^3/uL Nucleated RBCs 2 % Differential Comment MANUAL DIFFERENTIAL Manual Slide Review Platelet Estimate NORMAL (130-450,000) (NORMAL) Platelet Morphology NORMAL APPEARANCE (NORMAL) RBC Morph Micro Appear 2+ POIKILOCYTOSIS (NORMAL) Sodium (135-145) mmol/L Potassium (3.5-5.0) mmol/L Chloride (101-111) mmol/L Carbon Dioxide (21-32) mmol/L Anion Gap (6-13) BUN (6-20) mg/dL Creatinine (0.4-1.0) mg/dL Estimated GFR (MDRD) (>89) Glucose (70-100) mg/dL Calcium (8.5-10.3) mg/dL Phosphorus 4.3 (2.5-4.6) mg/dL Magnesium 1.9 (1.7-2.8) mg/dL Troponin I High Sens 18.2 H* (2.3-14.8) ng/L B-Natriuretic Peptide (5-100) pg/mL Nasal Adenovirus (PCR) Nasal B. parapertussis DNA (PCR) Nasal Coronavir 229E PCR Nasal Coronavir HKU1 PCR Nasal Coronavir NL63 PCR Nasal Coronavir OC43 PCR Nasal Enterovir/Rhinovir PCR Nasal Influenza B PCR Nasal Influenza A PCR Nasal Parainfluen 1 PCR Nasal Parainfluen 2 PCR Nasal Parainfluen 3 PCR Nasal Parainfluen 4 PCR Nasal RSV (PCR) Nasal Screen MRSA (PCR) (NEGATIVE) Nasal B.pertussis DNA PCR Nasal C.pneumoniae (PCR) Collin Human Metapneumo PCR Nasal M.pneumoniae (PCR) Nasal SARS-CoV-2 (PCR) Blood Type Blood Type Recheck Antibody Screen 04/23/20 04/23/20 04/23/20 Range/Units 13:50 09:41 09:32 WBC (4.8-10.8) x10^3/uL RBC (4.20-5.40) 10^6/uL Hgb (12.0-16.0) g/dL Hct (37.0-47.0) % MCV (81.0-99.0) fL MCH (27.0-31.0) pg MCHC (32.0-36.0) g/dL RDW (12.0-15.0) % Plt Count (130-450) 10^3/uL MPV (7.9-10.8) fL Neut # (Auto) Lymph # (Auto) [place] # (Auto) Eos # (Auto) Baso # (Auto) Absolute Nucleated RBC Total Counted Band Neuts % (Manual) (0 - 10) % Abnorm Lymph % (Manual) % Nucleated RBC % Neutrophils # (Manual) (1.5-6.6) 10^3/uL Lymphocytes # (Manual) (1.5-3.5) 10^3/uL Monocytes # (Manual) (0.0-1.0) 10^3/uL Eosinophils # (Manual) (0-0.7) 10^3/uL Basophils # (Manual) (0-0.1) 10^3/uL Nucleated RBCs % Differential Comment Manual Slide Review Platelet Estimate (NORMAL) Platelet Morphology (NORMAL) RBC Morph Micro Appear (NORMAL) Sodium (135-145) mmol/L Potassium (3.5-5.0) mmol/L Chloride (101-111) mmol/L Carbon Dioxide (21-32) mmol/L Anion Gap (6-13) BUN (6-20) mg/dL Creatinine (0.4-1.0) mg/dL Estimated GFR (MDRD) (>89) Glucose (70-100) mg/dL Calcium (8.5-10.3) mg/dL Phosphorus (2.5-4.6) mg/dL Magnesium (1.7-2.8) mg/dL Troponin I High Sens (2.3-14.8) ng/L B-Natriuretic Peptide (5-100) pg/mL Nasal Adenovirus (PCR) NOT DETECTED Nasal B. parapertussis DNA (PCR) NOT DETECTED Nasal Coronavir 229E PCR NOT DETECTED Nasal Coronavir HKU1 PCR NOT DETECTED Nasal Coronavir NL63 PCR NOT DETECTED Nasal Coronavir OC43 PCR NOT DETECTED Nasal Enterovir/Rhinovir PCR NOT DETECTED Nasal Influenza B PCR NOT DETECTED Nasal Influenza A PCR NOT DETECTED Nasal Parainfluen 1 PCR NOT DETECTED Nasal Parainfluen 2 PCR NOT DETECTED Nasal Parainfluen 3 PCR NOT DETECTED Nasal Parainfluen 4 PCR NOT DETECTED Nasal RSV (PCR) NOT DETECTED Nasal Screen MRSA (PCR) NEGATIVE (NEGATIVE) Nasal B.pertussis DNA PCR NOT DETECTED Nasal C.pneumoniae (PCR) NOT DETECTED Collin Human Metapneumo PCR NOT DETECTED Nasal M.pneumoniae (PCR) NOT DETECTED Nasal SARS-CoV-2 (PCR) NOT DETECTED Blood Type A POSITIVE Blood Type Recheck Antibody Screen NEGATIVE 04/23/20 04/23/20 Range/Units 09:14 09:14 WBC (4.8-10.8) x10^3/uL RBC (4.20-5.40) 10^6/uL Hgb (12.0-16.0) g/dL Hct (37.0-47.0) % MCV (81.0-99.0) fL MCH (27.0-31.0) pg MCHC (32.0-36.0) g/dL RDW (12.0-15.0) % Plt Count (130-450) 10^3/uL MPV (7.9-10.8) fL Neut # (Auto) Lymph # (Auto) [place] # (Auto) Eos # (Auto) Baso # (Auto) Absolute Nucleated RBC Total Counted Band Neuts % (Manual) (0 - 10) % Abnorm Lymph % (Manual) % Nucleated RBC % Neutrophils # (Manual) (1.5-6.6) 10^3/uL Lymphocytes # (Manual) (1.5-3.5) 10^3/uL Monocytes # (Manual) (0.0-1.0) 10^3/uL Eosinophils # (Manual) (0-0.7) 10^3/uL Basophils # (Manual) (0-0.1) 10^3/uL Nucleated RBCs % Differential Comment Manual Slide Review Platelet Estimate (NORMAL) Platelet Morphology (NORMAL) RBC Morph Micro Appear (NORMAL) Sodium (135-145) mmol/L Potassium (3.5-5.0) mmol/L Chloride (101-111) mmol/L Carbon Dioxide (21-32) mmol/L Anion Gap (6-13) BUN (6-20) mg/dL Creatinine (0.4-1.0) mg/dL Estimated GFR (MDRD) (>89) Glucose (70-100) mg/dL Calcium (8.5-10.3) mg/dL Phosphorus (2.5-4.6) mg/dL Magnesium (1.7-2.8) mg/dL Troponin I High Sens (2.3-14.8) ng/L B-Natriuretic Peptide 4668 H (5-100) pg/mL Nasal Adenovirus (PCR) Nasal B. parapertussis DNA (PCR) Nasal Coronavir 229E PCR Nasal Coronavir HKU1 PCR Nasal Coronavir NL63 PCR Nasal Coronavir OC43 PCR Nasal Enterovir/Rhinovir PCR Nasal Influenza B PCR Nasal Influenza A PCR Nasal Parainfluen 1 PCR Nasal Parainfluen 2 PCR Nasal Parainfluen 3 PCR Nasal Parainfluen 4 PCR Nasal RSV (PCR) Nasal Screen MRSA (PCR) (NEGATIVE) Nasal B.pertussis DNA PCR Nasal C.pneumoniae (PCR) Collin Human Metapneumo PCR Nasal M.pneumoniae (PCR) Nasal SARS-CoV-2 (PCR) Blood Type Blood Type Recheck A POSITIVE Antibody Screen Sepsis Event Note (H) - Evaluation Current Stage of Sepsis: Ruled out Assessment/Plan - Problem List (1) Atrial flutter with rapid ventricular response Impression: (1) Found to be in aflutter on EKG in the ED, rate of 122. She has a history of afib and aflutter, takes Eliquis at home. Per report from her daughter underwent 4 cardioversions in [facility] as well as a JOEL cardioversion. She was cardioverted in the ED, reverted to atrial fibrillation with rate in the 90- 110s. She was admitted to ICU for close monitoring. Overnight it looks like her HR has been 82-84. Records were received from her admission in [place] and show she was admitted for chest pain, dyspnea, acute blood loss anemia and concern for GIB. She was found to be in afib/aflutter and seen by Cardiology. Rate control was limited by hypotension and systolic and valvular heart failure. EP was concluded on 03/22 and she was noted to have heavily calcified regurgitant and stenotic mitral valves. JOEL cardioversion was performed 03/26 at which time she had a short duration of NSR but ultimately reverted back to aflutter. Due to being symptomatic she underwent right and left heart catheterization on 03/28, revealing mild nonobstructive CAD. She again underwent cardioversion on 03/30 and ultimately remained in NSR for the duration of her stay. 1. Telemetry 2. Hold Eliquis given report of black stools and concern for GIB (2) Afib Impression: History of afib, on Eliquis. 2 cardioversions done in [place], one done in the ER 04/23. Current rate ranging from 82-104. Will hold the Eliquis in the context of concern for GIB. SCDs for DVT prophylaxis at this time. Admission troponin of 18.2, likely related to aflutter and afib; follow up troponin also 18.2. She does have a history of CHF, will monitor for signs of fluid overload (none currently). Records were received from her admission in [place] and show she was admitted for chest pain, dyspnea, acute blood loss anemia and concern for GIB. She was found to be in afib/aflutter and seen by Cardiology. Rate control was limited by hypotension and systolic and valvular heart failure. EP was concluded on 03/22 and she was noted to have heavily calcified regurgitant and stenotic mitral valves. JOEL cardioversion was performed 03/26 at which time she had a short duration of NSR but ultimately reverted back to aflutter. Due to being symptomatic she underwent right and left heart catheterization on 03/28, revealing mild nonobstructive CAD. She again underwent cardioversion on 03/30 and ultimately remained in NSR for the duration of her stay. This admission she has remained in afib after her cardioversion. 1. Telemetry 2. Hold Eliquis; SCDs for DVT prophylaxis 3. Trend troponins Q8H x3 4. Obtain records from [facility] in [place] from prior hospital stay (requested x2) Qualifiers: Atrial fibrillation type: paroxysmal Qualified Code(s): I48.0 - Paroxysmal atrial fibrillation (3) GI bleed Impression: Pt had a recent GIB while hospitalized in [place]. Per her daughter she was transfused x3, with Hgb 6.4--->8. Over the past 3 days prior to admission patient had multiple loose black stools. No hematochezia or hematemesis. Takes Eliquis at baseline, PT/INR on admission were 30.7/2.9 and hgb 10.2. Hgb trending down, 9.8 and 9.3 on repeat checks. No BM today or clear signs of bleeding. Per records from admission to [place], she was admitted 03/19 with chest pain, dyspnea, acute blood loss anemia and GIB. An EGD performed 03/21 revealed non- bleeding ulcers with clean bases and erythematous duodenopathy. The records from the EGD were not included, results obtained from the discharge summary which also notes she had an unremarkable colonoscopy. She was ultimately recommended to continue a PPI for 12 weeks and okayed to continue Xarelto. 1. Trend Hgb daily, transfuse for hgb <7 2. General Surgery consult if she shows signs of bleeding 3. Requested pathology and records from EGD and colonoscopy done in [place] at her last admission Qualifiers: GI bleed type/associated pathology: unspecified gastrointestinal hemorrhage type Qualified Code(s): K92.2 - Gastrointestinal hemorrhage, unspecified (4) CHF exacerbation Impression: Last Echo in [facility] is 07/12/2019 which showed EF 40-50%, mild CHF. 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 BNP of 4668 3/, no SOB except with exertion. May be related to 3 prior blood transfusions this month though this is unclear. Given IV lasix in the ED and has had appropriate urine output, slightly agustin. Will continue to monitor. 1. Continue home medications 2. Daily weights 3. Monitor I/Os Qualifiers: Heart failure type: combined systolic and diastolic Qualified Code(s): I50.43 - Acute on chronic combined systolic (congestive) and diastolic (congestive) heart failure (5) SARA (acute kidney injury) Impression: BUN 23 and creatinine 1.5 on admission, today they are trending down to 22 and 1.4 . 300mL agustin urine output overnight. Previous creatinine of 1.3 in July 2019, so this may be more her baseline and related to diabetes. Will continue to monitor. 1. Trend BUN/Creatinine 2. Monitor I/Os 3. IVF while NPO (6) Diabetes mellitus Impression: No recent A1C. Blood sugars in the 140s today. Takes Glipizide at home, last dose this morning. She is NPO while being monitored for GIB, will continue SSI for now. 1. SSI 2. A1C 3. 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 Difficult to test strength on exam given her hearing difficulties and difficulty with reading my written instructions. 1. PT consult (8) Contusion, hip Impression: Stable. Fell 04/10 when getting out of car at [facility] infusion clinic. Seen in the ED, x-rays negative for fracture. The hip region is ecchymotic and painful but she does have range of motion at the site. Has had other falls since per report. 1. Analgesia PRN 2. Alternate ice packs and warm packs PRN Qualifiers: Encounter type: subsequent encounter Laterality: right Qualified Code(s): S70.01XD - Contusion of right hip, subsequent encounter (9) Depression Impression: Has a prior diagnosis of depression, for which she takes amitriptoline. 1. Continue home meds. Qualifiers: Depression Type: unspecified Qualified Code(s): F32.9 - Major depressive disorder, single episode, unspecified (10) Hearing impaired person Impression: Hearing impaired at baseline due to congenital deafness per chart review. Has some success with lip reading but prefers to write out communication. Able to verbalize appropriately. Qualifiers: Laterality: bilateral Qualified Code(s): H91.93 - Unspecified hearing loss, bilateral (11) PVD (peripheral vascular disease) Impression: Prior records indicate a history of PVD for which she was taking a statin and aspirin with plan to follow up outpatient with Vascular Surgery. Currently taking Atorvastatin and Eliquis, no aspirin. 1. Continue Atorvastatin 2. SCDs for DVT prophylaxis, Eliquis held for concern for GIB (12) TIA (transient ischemic attack) Impression: Hx TIA June 2019. 1. Resume Eliquis when able. (13) History of fall Impression: Has fallen x3 in the last month. Seen in the ED 04/10 after falling getting out of the car. Has not hit her head, no LOC. Denies dizziness or lightheadedness but it is unclear what is causing the falls other than possible weakness. I wonder if her arrhythmias are causing syncope though she has denied. 1. Fall precautions 2. PT consult (14) Bacteremia Impression: Per patient's daughter she was diagnosed with bacteremia during her prior hospital stay in [place]. Per Pharmacy there are 3 days left of IV abx. The source is unclear. We have requested the records from [place] but are still waiting for them to arrive. WBC normal, she has been afebrile. No signs of act julia infection currently. Records received this afternoon. On 03/30 she started complaining of abdominal pain and was having increased stool frequency. A CT was performed and she was found to have pancolitis. They treated conservatively with bowel rest and abx, which are due to be stopped in 3 days. Blood cultures 03/31 grew MSSA but the source was unknown. Repeat blood cx negative 04/02 and she has not had signs of infection while admitted here. She does continue to have right sided abdominal pain. 1. Continue abx as per pharmacy (15) Coronary artery disease Impression: Outside records indicate she has heavily calcified regurgitant and stenotic mitr al valve (EP concluded 03/22/20). Right and left heart cath performed 03/28/20 revealed mild nonobstructive CAD. She underwent cardioversion x2 in [place] and x1 here, remains in afib/aflutter. 1. Telemetry 2. Follow up outpatient cardiology (16) History of ischemic colitis Impression: Found to have pancolitis on abd/pelvis CT 03/31, treated conservatively with abx and bowel rest. Tolerating a diet at home but reports black stools at home (has not had any here). 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 She was thought to have low flow ischemic colitis due to EF 35%, diruetics, 2 cardioversions, aflutter with RVR. She continues to have right abdominal pain but feels like it may be improving. She has been on bowel rest since yesterday morning given NPO status for possible GIB. 1. Repeat CT abdomen/pelvis with contrast 2. NPO
[2020-04-24] MEDS: ceFAZolin 1 GM in SODIUM CHLORIDE 0.9% MINIBAG 100 ML IV SCH ×2 (10:48→18:24)
[2020-04-24] MEDS: metroNIDAZOLE 500 MG/100 ML 500 MG/100 ML BAG IV SCH ×2 (11:56→19:44)
[2020-04-24] MEDS: SODIUM CHLORIDE FLUSH 0.9% 10 ML SYRINGE IVP PRN ×2 (13:19→21:25)
[2020-04-24] MEDS ORDERED: IOVERSOL 320 100 ML VIAL IVP ONE ×3 (13:26→17:47)
[2020-04-24] MEDS ORDERED: IOPAMIDOL-300 50 ML VIAL ONE (15:40)
--- NOTE | 2020-04-24 19:06 | CT Report ---
PROCEDURE: Abdomen/Pelvis W INDICATIONS: has ? mesenteric ischemia colitis and needs fu CONTRAST: IV CONTRAST: Optiray 320 ml: 100 PO CONTRAST: Isovue 300 ml50 TECHNIQUE: After the administration of nonionic contrast, 5 mm thick sections acquired from the diaphragms to th e symphysis. 5 mm thick coronal and sagittal reformats were acquired. For radiation dose reduction, the following was used: automated exposure control, adjustment of mA and/or kV according to patient size. COMPARISON: None. FINDINGS: Image quality: Excellent. ABDOMEN: Lung bases: Lung bases are atelectatic adjacent to small to moderate-sized bilateral water density s imple appearing pleural effusions. Heart size is normal. Solid organs: Liver and spleen are normal in size and enhancement. Gallbladder is not inflamed but contains a small amount of posterior layering intermediate radiodensity presumed gallstones. Biliary system is non dilated. Pancreas enhances normally. No adrenal nodules. Kidneys demonstrate normal size and enhancement, without hydronephrosis. Peritoneum and bowel: Bowel loops demonstrate normal wall thickness and caliber. No free fluid or a ir. Nodes and vessels: No retroperitoneal or mesenteric adenopathy by size criteria. Aorta and inferior vena cava are normal in size. Miscellaneous: No ventral hernias. Body wall anasarca. No evidence of ischemic bowel disease. PELVIS: Genitourinary: Bladder wall thickness is normal. Miscellaneous: No inguinal hernias or adenopathy. Body wall anasarca. Bones: No suspicious bony lesions. No vertebral body compression fractures. IMPRESSION: Bilateral [id number] pleural effusions, simple in appearance. Mild adjacent atele ctasis. Body wall anasarca through the chest abdomen and pelvis. No ascites found. No evidence of bow el ischemia. Note is made of several faintly calcified structures within the posterior border of the gallbladder lumen likely representing small gallstones. Ultrasound assessment would provide a much mo re accurate evaluation for gallstones in this patient. Reviewed by: Abhishek Carver MD on 04/24/2020 7:05 PM PST Approved by: Abhishek Carver MD on 04/24/2020 7:05 PM PST Station ID: [id number]
[2020-04-24] MEDS: oxyCODONE 5 MG TABLET PO PRN (19:52)
[2020-04-24] MEDS ORDERED: traZODone 50 MG TABLET PO SCH (21:00)
[2020-04-24] MEDS: traZODone 50 MG TABLET PO SCH (22:45)
[2020-04-25] MEDS: ceFAZolin 1 GM in SODIUM CHLORIDE 0.9% MINIBAG 100 ML IV SCH ×3 (03:30→18:45)
[2020-04-25] MEDS: SODIUM CHLORIDE FLUSH 0.9% 10 ML SYRINGE IVP SCH ×2 (03:31→08:51)
[2020-04-25] MEDS: oxyCODONE 5 MG TABLET PO PRN ×2 (03:44→21:25)
[2020-04-25] MEDS: metroNIDAZOLE 500 MG/100 ML 500 MG/100 ML BAG IV SCH ×3 (04:15→19:28)
[2020-04-25 04:51] LABS: BASOPHILS # (AUTO) 0.1 10^3/uL (0.0-0.1); BASOPHILS % (AUTO) 0.8 %; EOSINOPHILS # (AUTO) 0.3 10^3/uL (0.0-0.7); EOSINOPHILS % (AUTO) 4.1 %; HCT - HEMATOCRIT 31.5 % (37.0-47.0); HGB - HEMOGLOBIN 9.4 g/dL (12.0-16.0); LYMPHOCYTES # (AUTO) 1.3 10^3/uL (1.5-3.5); MEAN CORPUSCULAR HEMOGLOBIN 28.3 pg (27.0-31.0); MEAN CORPUSCULAR HGB CONC 29.8 g/dL (32.0-36.0); MEAN CORPUSCULAR VOLUME 94.9 fL (81.0-99.0); MEAN PLATELET VOLUME 11.6 fL (7.9-10.8); MONOCYTES # (AUTO) 0.6 10^3/uL (0.0-1.0); MONOCYTES % (AUTO) 8.9 %; NEUTROPHILS # (AUTO) 4.1 10^3/uL (1.5-6.6); NEUTROPHILS % (AUTO) 64.4 %; NRBC ABSOLUTE COUNT (AUTO) 0.02 x10^3/uL; NUCLEATED RED BLOOD CELLS AUTO 0.3 /100WBC; PLT - PLATELET COUNT 162 10^3/uL (130-450); RED BLOOD COUNT 3.32 10^6/uL (4.20-5.40); RED CELL DISTRIBUTION WIDTH 25.4 % (12.0-15.0); WHITE BLOOD COUNT 6.4 x10^3/uL (4.8-10.8)
[2020-04-25 04:57] LABS: CALCIUM 8.3 mg/dL (8.5-10.3); CREATININE 1.3 mg/dL (0.4-1.0); POTASSIUM 4.2 mmol/L (3.5-5.0)
[2020-04-25 05:10] LABS: SLIDE REVIEW? Indicated
[2020-04-25 05:30] LABS: PLATELET ESTIMATE, MANUAL NORMAL (130-450,000) (NORMAL); PLATELET MORPHOLOGY 1+ GIANT PLATELETS (NORMAL)
[2020-04-25] MEDS: INSULIN ASPART 300 UNIT/3 ML PEN SUBQ SCH ×4 (08:18→21:40)
[2020-04-25] MEDS: PANTOPRAZOLE 40 MG VIAL IVP SCH ×2 (08:51→21:25)
[2020-04-25] MEDS: DIGOXIN 500 MCG/2 ML AMP IVP SCH (08:53)
--- NOTE | 2020-04-25 10:50 | PROVIDER PROGRESS NOTE ---
Subjective - Prog Note Date Prog Note Date: 04/25/20 - Subjective Pt reports feeling: Improved Subjective: Feeling better today, happy she was able to eat "real food" for breakfast. Feels pain "all over" but reports this is her baseline and tolerable, no SOB. Objective - Vital Signs/Intake & Output Reviewed Vital Signs: Yes Vital Signs: Vital Signs x48h Temp Pulse Pulse Pulse Resp BP BP 04/25/20 08:53 98 04/25/20 08:22 36.7 C 98 20 96/66 04/25/20 06:37 97 89/43 L 04/25/20 05:17 97 04/25/20 04:05 36.5 C 111 H 16 99/61 Pulse Ox 04/25/20 08:53 04/25/20 08:22 100 04/25/20 06:37 04/25/20 05:17 04/25/20 04:05 94 Intake & Output: Intake & Output 04/22/20 04/23/20 04/24/20 04/25/20 23:59 23:59 23:59 23:59 Intake Total 910 880 520 Output Total 850 75 Balance 910 30 445 - Objective General Appearance: positive: No acute distress, Alert Eyes Bilateral: positive: Normal inspection, PERRL ENT: positive: ENT inspection nml, Pharynx nml, No signs of dehydration Neck: positive: Nml inspection Respiratory: positive: Chest non-tender, No respiratory distress, Breath sounds nml Cardiovascular: positive: Irregularly irregular, Tachycardia Peripheral Pulses: 2+ Radial (R), 2+ Radial (L) Abdomen: positive: Non-tender, No organomegaly, Nml bowel sounds, No distention Skin: positive: Color nml Extremities: positive: Non-tender, Full ROM, Nml appearance - Lab Results Fish Bones: 04/25/20 04:46 04/25/20 04:46 Other Labs: Lab Results x24hrs 04/25/20 04/25/20 Range/Units 04:46 04:46 WBC 6.4 (4.8-10.8) x10^3/uL RBC 3.32 L (4.20-5.40) 10^6/uL Hgb 9.4 L (12.0-16.0) g/dL Hct 31.5 L (37.0-47.0) % MCV 94.9 (81.0-99.0) fL MCH 28.3 (27.0-31.0) pg MCHC 29.8 L (32.0-36.0) g/dL RDW 25.4 H (12.0-15.0) % Plt Count 162 (130-450) 10^3/uL MPV 11.6 H (7.9-10.8) fL Neut # (Auto) 4.1 (1.5-6.6) 10^3/uL Lymph # (Auto) 1.3 L (1.5-3.5) 10^3/uL [place] # (Auto) 0.6 (0.0-1.0) 10^3/uL Eos # (Auto) 0.3 (0.0-0.7) 10^3/uL Baso # (Auto) 0.1 (0.0-0.1) 10^3/uL Absolute Nucleated RBC 0.02 x10^3/uL Nucleated RBC % 0.3 /100WBC Manual Slide Review Indicated Platelet Estimate NORMAL (130-450,000) (NORMAL) Platelet Morphology 1+ GIANT PLATELETS (NORMAL) RBC Morph Micro Appear 1+ OVALOCYTES (NORMAL) Sodium 139 (135-145) mmol/L Potassium 4.2 (3.5-5.0) mmol/L Chloride 102 (101-111) mmol/L Carbon Dioxide 28 (21-32) mmol/L Anion Gap 9.0 (6-13) BUN 18 (6-20) mg/dL Creatinine 1.3 H (0.4-1.0) mg/dL Estimated GFR (MDRD) 40 L (>89) Glucose 118 H (70-100) mg/dL Calcium 8.3 L (8.5-10.3) mg/dL ABX Reporting Has patient been on IV antibiotics over the past 48 hours?: No Sepsis Event Note (H) - Evaluation Current Stage of Sepsis: Ruled out Assessment/Plan - Problem List (1) Atrial flutter with rapid ventricular response Impression: Found to be in aflutter on EKG in the ED, rate of 122. She has a history of afib and aflutter, takes Eliquis at home. Per outpatient records she underwent 2 cardioversions in [place] and by discharge in March was normal sinus rhythm. She was found to be in aflutter in the ED and cardioverted, has remain ed in afib since then. Her rate has been 90-120s in the last 24 hours. 1. Stop Telemetry 2. Restart Eliquis (2) Afib Impression: History of afib and aflutter, on Eliquis. 2 cardioversions done in [place], one done in the ER 04/23. Current rate ranging from 90s-120s. No evidence of GIB, hgb stable. Eliquis restarted today. Troponins have been 18.2. She denies chest pain or shortness of breath. Records were received from her admission in [place] and show she was admitted for chest pain, dyspnea, acute blood loss anemia and concern for GIB. She was found to be in afib/aflutter and seen by Cardiology. Rate control was limited by hypotension and systolic and valvular heart failure. EP was concluded on 03/22 and she was noted to have heavily calcified regurgitant and stenotic mitral valves. JOEL cardioversion was performed 03/26 at which time she had a short duration of NSR but ultimately reverted back to aflutter. Due to being symptomatic she underwent right and left heart catheterization on 03/28, revealing mild nonobstructive CAD. She again underwent cardioversion on 03/30 and ultimately remained in NSR for the duration of her stay. This admission she has remained in afib after her cardioversion. 1. Stop Telemetry 2. Restart Eliquis; SCDs for DVT prophylaxis 3. Resume home medications Qualifiers: Atrial fibrillation type: paroxysmal Qualified Code(s): I48.0 - Paroxysmal atrial fibrillation (3) GI bleed Impression: Pt had a recent GIB while hospitalized in [place]. Per her daughter she was transfused x3, with Hgb 6.4--->8. Over 3 days prior to admission patient had multiple loose black stools. No hematochezia or hematemesis. Takes Eliquis at baseline, PT/INR on admission were 30.7/2.9 and hgb 10.2. Hgb has remained stable >9 this admission, no signs of bleeding or black stools. Per records from admission to [place], she was admitted 03/19 with chest pain, dyspnea, acute blood loss anemia and GIB. An EGD performed 03/21 revealed non- bleeding ulcers with clean bases and erythematous duodenopathy. The records from the EGD were obtained today and unremarkable. She was ultimately recommended to continue a PPI for 12 weeks and okayed to continue Xarelto. 1. Trend Hgb daily, transfuse for hgb <7 2. Continue protonix Qualifiers: GI bleed type/associated pathology: unspecified gastrointestinal hemorrhage type Qualified Code(s): K92.2 - Gastrointestinal hemorrhage, unspecified (4) CHF exacerbation Impression: Last Echo in [facility] is 07/12/2019 which showed EF 40-50%, mild CHF. Her roll mill operator is in [place] and per her daughter she takes all of her medications consistently. [place]NP [place] 4668 04/23, no SOB except with exertion. May be related to 3 prior blood transfusions this month though this is unclear. Given IV lasix in the ED and has had appropriate urine output, slightly agustin. Will continue to monitor. 1. Continue home medications 2. Daily weights 3. Monitor I/Os Qualifiers: Heart failure type: combined systolic and diastolic Qualified Code(s): I50.43 - Acute on chronic combined systolic (congestive) and diastolic (congestive) heart failure (5) SARA (acute kidney injury) Impression: Improving. BUN 23 and creatinine 1.5 on admission, today they are trending down to182 and 1.3 . Appropriate urine output. Will continue to monitor. 1. Trend BUN/Creatinine 2. Monitor I/Os (6) Diabetes mellitus Impression: No recent A1C. Blood sugars 80s-110s today. Takes Glipizide at home. Resumed liquid diet last night and tolerated a regular/diabetic diet this morning. No n/v. Blood sugars have remained below 150 today. 1. SSI 2. A1C 3. Resume Glipizide. Qualifiers: Diabetes mellitus type: type 2 Diabetes mellitus buttermaker helper insulin use: without buttermaker helper use Diabetes mellitus complication status: without complication Qualified Code(s): E11.9 - Type 2 diabetes mellitus without complications (7) Weakness Impression: Reports generalized weakness and deconditioning since discharged from the hospital in [place] 04/16. Difficult to test strength on exam given her hearing difficulties and difficulty with reading my written instructions. Able to get up to the chair with nursing, awaiting PT consult. This will happen tomorrow as she was getting back into bed when PT arrived to see her today. 1. PT consult (8) Contusion, hip Impression: Stable. Fell 04/10 when getting out of car at [facility]. Seen in the ED, x-rays negative for fracture. The hip region is ecchymotic and painful but she does have range of motion at the site. Has had other falls since per report. 1. Analgesia PRN 2. Alternate ice packs and warm packs PRN Qualifiers: Encounter type: subsequent encounter Laterality: right Qualified Code(s): S70.01XD - Contusion of right hip, subsequent encounter (9) Depression Impression: Has a prior diagnosis of depression, for which she takes amitriptoline. 1. Continue home meds. Qualifiers: Depression Type: unspecified Qualified Code(s): F32.9 - Major depressive disorder, single episode, unspecified (10) Hearing impaired person Impression: Hearing impaired at baseline due to congenital deafness per chart review. Has some success with lip reading but prefers to write out communication. Able to verbalize appropriately, also uses sign language. Qualifiers: Laterality: bilateral Qualified Code(s): H91.93 - Unspecified hearing loss, bilateral (11) PVD (peripheral vascular disease) Impression: Prior records indicate a history of PVD for which she was taking a statin and aspirin with plan to follow up outpatient with Vascular Surgery. Currently taking Atorvastatin and Eliquis, no aspirin. 1. Continue Atorvastatin 2. Resume Eliquis. (12) TIA (transient ischemic attack) Impression: Hx TIA June 2019. 1. Resume Eliquis. (13) History of fall Impression: Has fallen x3 in the last month. Seen in the ED 04/10 after falling getting out of the car. Has not hit her head, no LOC. Denies dizziness or lightheadedness but it is unclear what is causing the falls other than possible weakness. I wonder if her arrhythmias are causing syncope though she has denied. 1. Fall precautions 2. PT consult, likely to happen tomorrow as Pt was getting back into bed when PT arrived to see her (14) Bacteremia Impression: Per patient's daughter she was diagnosed with bacteremia during her prior hospital stay in [place]. Per outside records: on 03/30 she started complaining of abdominal pain and was having increased stool frequency. A CT was performed and she was found to have pancolitis. They treated conservatively with bowel rest and abx, which are due to be stopped in 2-3 days. Blood cultures 03/31 grew MSSA but the source was unknown. Repeat blood cx negative 04/02 and she has not had signs of infection while admitted here. She does continue to have right sided abdominal pain. CT done yesterday was negative for further ischemic colitis/pancolitis. 1. Continue abx as per pharmacy (15) Coronary artery disease Impression: Outside records indicate she has heavily calcified regurgitant and stenotic mitral valve (EP concluded 03/22/20). Right and left heart cath performed 03/28/20 revealed mild nonobstructive CAD. She underwent cardioversion x2 in [place] and x1 here, remains in afib/aflutter. 1. Stop Telemetry 2. Follow up outpatient cardiology 3. Resume home medications Qualifiers: Coronary Disease-Associated Artery/Lesion type: unspecified vessel or lesion type [place] vs. transplanted heart: unspecified whether [place] or transplanted heart Associated angina: without angina Qualified Code(s): I25.10 - Atherosclerotic heart disease of [place] coronary artery without angina pectoris (16) History of ischemic colitis Impression: Found to have pancolitis on abd/pelvis CT 03/31, treated conservatively with abx and bowel rest. Tolerating a diet at home but reports black stools at home (has not had any here). 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 She was thought to have low flow ischemic colitis due to EF 35%, diruetics, 2 cardioversions, aflutter with RVR. She continues to have right abdominal pain but feels like it may be improving. CT done yesterday did not show ischemic colitis and she has been tolerating a regular diet. 1. Regular/diabetic diet 2. Continue abx as per pharmacy
[2020-04-25] MEDS ORDERED: METOPROLOL SUCCINATE 50 MG TABLET PO SCH (14:00)
[2020-04-25] MEDS: MAGNESIUM OXIDE 400 MG TABLET PO SCH ×2 (14:06→21:23)
[2020-04-25] MEDS: RIVAROXABAN 10 MG TABLET PO SCH (17:32)
[2020-04-25] MEDS: ATORVASTATIN 40 MG TABLET PO SCH (21:23)
[2020-04-25] MEDS: AMITRIPTYLINE 25 MG TABLET PO SCH (21:23)
[2020-04-25] MEDS: METOPROLOL SUCCINATE 50 MG TABLET PO SCH (21:24)
[2020-04-25] MEDS: traZODone 50 MG TABLET PO SCH (21:27)
[2020-04-26] MEDS: ACETAMINOPHEN 325 MG TABLET PO PRN (02:01)
[2020-04-26] MEDS: oxyCODONE 5 MG TABLET PO PRN ×2 (02:02→13:14)
[2020-04-26] MEDS: SODIUM CHLORIDE FLUSH 0.9% 10 ML SYRINGE IVP SCH ×3 (02:07→17:28)
[2020-04-26] MEDS: metroNIDAZOLE 500 MG/100 ML 500 MG/100 ML BAG IV SCH (03:11)
[2020-04-26] MEDS: SODIUM CHLORIDE FLUSH 0.9% 10 ML SYRINGE IVP PRN ×2 (03:16→20:19)
[2020-04-26] MEDS: ceFAZolin 1 GM in SODIUM CHLORIDE 0.9% MINIBAG 100 ML IV SCH (03:16)
[2020-04-26 04:49] LABS: BASOPHILS # (AUTO) 0.1 10^3/uL (0.0-0.1); BASOPHILS % (AUTO) 1.3 %; EOSINOPHILS # (AUTO) 0.3 10^3/uL (0.0-0.7); EOSINOPHILS % (AUTO) 6.4 %; HCT - HEMATOCRIT 32.4 % (37.0-47.0); HGB - HEMOGLOBIN 9.4 g/dL (12.0-16.0); LYMPHOCYTES # (AUTO) 1.3 10^3/uL (1.5-3.5); LYMPHOCYTES % (AUTO) 28.2 %; MEAN CORPUSCULAR HEMOGLOBIN 28.6 pg (27.0-31.0); MEAN CORPUSCULAR VOLUME 98.5 fL (81.0-99.0); MEAN PLATELET VOLUME 11.4 fL (7.9-10.8); MONOCYTES # (AUTO) 0.4 10^3/uL (0.0-1.0); MONOCYTES % (AUTO) 9.7 %; NEUTROPHILS # (AUTO) 2.5 10^3/uL (1.5-6.6); NEUTROPHILS % (AUTO) 54.2 %; NRBC ABSOLUTE COUNT (AUTO) 0.02 x10^3/uL; NUCLEATED RED BLOOD CELLS AUTO 0.4 /100WBC; PLT - PLATELET COUNT 178 10^3/uL (130-450); RED BLOOD COUNT 3.29 10^6/uL (4.20-5.40); RED CELL DISTRIBUTION WIDTH 25.2 % (12.0-15.0); WHITE BLOOD COUNT 4.5 x10^3/uL (4.8-10.8)
[2020-04-26 05:01] LABS: CALCIUM 8.1 mg/dL (8.5-10.3); CREATININE 1.1 mg/dL (0.4-1.0); POTASSIUM 3.9 mmol/L (3.5-5.0)
[2020-04-26] MEDS: MAGNESIUM OXIDE 400 MG TABLET PO SCH ×3 (06:31→20:20)
[2020-04-26] MEDS: INSULIN ASPART 300 UNIT/3 ML PEN SUBQ SCH ×4 (07:47→20:20)
[2020-04-26] MEDS ORDERED: FUROSEMIDE 20 MG TABLET PO SCH (09:00)
[2020-04-26] MEDS: METOPROLOL SUCCINATE 50 MG TABLET PO SCH (10:01)
[2020-04-26] MEDS: PANTOPRAZOLE 40 MG VIAL IVP SCH ×2 (10:02→20:19)
[2020-04-26] MEDS: AMIODARONE 200 MG TABLET PO SCH (10:02)
--- NOTE | 2020-04-26 14:09 | PROVIDER PROGRESS NOTE ---
Subjective - Prog Note Date Prog Note Date: 04/26/20 - Subjective Pt reports feeling: Improved Subjective: Reports she slept well overnight. Denies n/v, SOB, chest pain or palpitations. Objective - Vital Signs/Intake & Output Reviewed Vital Signs: Yes Vital Signs: Vital Signs x48h Temp Pulse Resp BP Pulse Ox 04/26/20 12:42 64 97/70 04/26/20 09:04 89/60 L 98 04/26/20 07:18 36.5 C 77 16 87/62 L 96 Intake & Output: Intake & Output 04/23/20 04/24/20 04/25/20 04/26/20 23:59 23:59 23:59 23:59 Intake Total 749 477 6059 490 Output Total 850 150 200 Balance 166 77 7923 290 - Objective General Appearance: positive: No acute distress, Alert Eyes Bilateral: positive: Normal inspection, PERRL ENT: positive: ENT inspection nml, No signs of dehydration Neck: positive: Nml inspection Respiratory: positive: Chest non-tender, No respiratory distress, Breath sounds nml Cardiovascular: positive: Irregularly irregular, Tachycardia (rate 70s-100s), Systolic murmur (known murmur) Peripheral Pulses: 2+ Radial (R), 2+ Radial (L) Abdomen: positive: Non-tender, No organomegaly, Nml bowel sounds, No distention Skin: positive: Color nml, No rash, Warm, Dry Extremities: positive: Non-tender, Full ROM, Nml appearance Neurologic/Psychiatric: positive: Oriented x3 - Lab Results Fish Bones: 04/26/20 04:21 04/26/20 04:21 Other Labs: Lab Results x24hrs 04/26/20 04/26/20 Range/Units 04:21 04:21 WBC 4.5 L (4.8-10.8) x10^3/uL RBC 3.29 L (4.20-5.40) 10^6/uL Hgb 9.4 L (12.0-16.0) g/dL Hct 32.4 L (37.0-47.0) % MCV 98.5 (81.0-99.0) fL MCH 28.6 (27.0-31.0) pg MCHC 29.0 L (32.0-36.0) g/dL RDW 25.2 H (12.0-15.0) % Plt Count 178 (130-450) 10^3/uL MPV 11.4 H (7.9-10.8) fL Neut # (Auto) 2.5 (1.5-6.6) 10^3/uL Lymph # (Auto) 1.3 L (1.5-3.5) 10^3/uL [place] # (Auto) 0.4 (0.0-1.0) 10^3/uL Eos # (Auto) 0.3 (0.0-0.7) 10^3/uL Baso # (Auto) 0.1 (0.0-0.1) 10^3/uL Absolute Nucleated RBC 0.02 x10^3/uL Nucleated RBC % 0.4 /100WBC Sodium 140 (135-145) mmol/L Potassium 3.9 (3.5-5.0) mmol/L Chloride 103 (101-111) mmol/L Carbon Dioxide 28 (21-32) mmol/L Anion Gap 9.0 (6-13) BUN 14 (6-20) mg/dL Creatinine 1.1 H (0.4-1.0) mg/dL Estimated GFR (MDRD) 49 L (>89) Glucose 101 H (70-100) mg/dL Calcium 8.1 L (8.5-10.3) mg/dL ABX Reporting Has patient been on IV antibiotics over the past 48 hours?: No Sepsis Event Note (H) - Evaluation Current Stage of Sepsis: Ruled out Assessment/Plan - Problem List (1) Atrial flutter with rapid ventricular response Impression: Resolved. Found to be in aflutter on EKG in the ED, rate of 122. She has a history of afib and aflutter, takes Eliquis at home. Per outpatient records she underwent 2 cardioversions in [place] and by discharge in March was normal sinus rhythm. She was found to be in aflutter in the ED and cardioverted, has remained in afib since then. Her rate has been 70-100s in the last 24 hours. 1. Continue Eliquis (2) Afib Impression: Stable. History of afib and aflutter, on Eliquis. 2 cardioversions done in [place], one done in the ER 3/. Current rate ranging from 90s-120s. No evidence of GIB, hgb stable. Eliquis restarted 04/25. She denies chest pain or shortness of breath but does have dyspnea on exertion. Hypotensive this morning, metoprolol dose decreased. Records were received from her admission in [place] and show she was admitted for chest pain, dyspnea, acute blood loss anemia and concern for GIB. She was found to be in afib/aflutter and seen by Cardiology. Rate control was limited by hypotension and systolic and valvular heart failure. EP was concluded on 03/22 and she was noted to have heavily calcified regurgitant and stenotic mitral valves. JOEL cardioversion was performed 03/26 at which time she had a short duration of NSR but ultimately reverted back to aflutter. Due to being symptomatic she underwent right and left heart catheterization on 03/28, revealing mild nonobstructive CAD. She again underwent cardioversion on 03/30 and ultimately remained in NSR for the duration of her stay. This admission she has remained in afib after her cardioversion. 1. Continue Eliquis 2. Continue home medications Qualifiers: Atrial fibrillation type: paroxysmal Qualified Code(s): I48.0 - Paroxysmal atrial fibrillation (3) GI bleed Impression: Resolved. Pt had a recent GIB while hospitalized in [place]. Per her daughter she was transfused x3, with Hgb 6.4--->8. Over 3 days prior to admission patient had multiple loose black stools. No hematochezia or hematemesis. Takes Eliquis at baseline, PT/INR on admission were 30.7/2.9 and hgb 10.2. Hgb has remained stable >9 this admission, no signs of bleeding or black stools. Per records from admission to [place], she was admitted 03/19 with chest pain, dyspnea, acute blood loss anemia and GIB. An EGD performed 03/21 revealed non- bleeding ulcers with clean bases and erythematous duodenopathy. The records from the EGD were obtained today and unremarkable. She was ultimately recommended to continue a PPI for 12 weeks and okayed to continue Xarelto. 1. Trend Hgb daily, transfuse for hgb <7 2. Continue protonix Qualifiers: GI bleed type/associated pathology: unspecified gastrointestinal hemorrhage type Qualified Code(s): K92.2 - Gastrointestinal hemorrhage, unspecified (4) CHF exacerbation Impression: Stable. Last Echo in [facility] is 07/12/2019 which showed EF 40-50%, mild CHF. 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 BNP of 4668 04/23, no SOB except with exertion. May be related to 3 prior blood transfusions this month though this is unclear. Given IV lasix in the ED and has had appropriate urine output, slightly agustin. Dyspnea on exertion. Has to go up 20 stairs to get to her apartment. Worked with PT this morning and does not believe she can make it all the way up the stairs, amenable to a short SNF or rehab stay to get stronger and more able to get up the stairs to her apartment. 1. Continue home medications 2. Daily weights 3. Monitor I/Os 4. PT 5. SNF/Rehab referral Qualifiers: Heart failure type: combined systolic and diastolic Qualified Code(s): I50.43 - Acute on chronic combined systolic (congestive) and diastolic (congestive) heart failure (5) SARA (acute kidney injury) Impression: Improving. Creatinine 1.5 on admission, today it is 1.1 . Appropriate urine output. Will continue to monitor. 1. Trend BUN/Creatinine 2. Monitor I/Os (6) Diabetes mellitus Impression: No recent A1C. Blood sugars 80s-110s today. Takes Glipizide at home. Tolerating a regular/diabetic diet. No n/v. Blood sugars have remained below the 110s today. 1. SSI 2. Continue Glipizide. Qualifiers: Diabetes mellitus type: type 2 Diabetes mellitus fpc insulin use: without exterminator termite use Diabetes mellitus complication status: without complication Qualified Code(s): E11.9 - Type 2 diabetes mellitus without complications (7) Weakness Impression: Reports generalized weakness and deconditioning since discharged from the hospital in [place] 04/16. She has to climb 20 stairs at her building to get to her apartment, which is not an [place] apartment. She worked with PT this morning and she and PT do not believe she currently has the strength to climb this number of stairs safely. She was amenable to a SNF/Rehab referral for discharge. 1. PT 2. SNF/Rehab referral (8) Contusion, hip Impression: Stable. Fell 04/10 when getting out of car at [facility]. Seen in the ED, x-rays negative for fracture. The hip region is ecchymotic and painful but she does have range of motion at the site. Has had other falls since per report. 1. Analgesia PRN 2. Alternate ice packs and warm packs PRN Qualifiers: Encounter type: subsequent encounter Laterality: right Qualified Code(s): S70.01XD - Contusion of right hip, subsequent encounter (9) Depression Impression: Has a prior diagnosis of depression, for which she takes amitriptoline. 1. Continue home meds. Qualifiers: Depression Type: unspecified Qualified Code(s): F32.9 - Major depressive disorder, single episode, unspecified (10) Hearing impaired person Impression: Hearing impaired at baseline due to congenital deafness per chart review. Has some success with lip reading but prefers to write out communication. Able to verbalize appropriately, also uses sign language. Qualifiers: Laterality: bilateral Qualified Code(s): H91.93 - Unspecified hearing loss, bilateral (11) PVD (peripheral vascular disease) Impression: Stable. Prior records indicate a history of PVD for which she was taking a statin and aspirin with plan to follow up outpatient with Vascular Surgery. Currently taking Atorvastatin and Eliquis, no aspirin. 1. Continue Atorvastatin 2. Continue Eliquis. (12) TIA (transient ischemic attack) Impression: Stable. Hx TIA June 2019. No signs of TIA this admission. 1. Continue Eliquis. (13) History of fall Impression: Has fallen x3 in the last month. Seen in the ED 04/10 after falling getting out of the car. Has not hit her head, no LOC. Denies dizziness or lightheadedness but it is unclear what is causing the falls other than possible weakness. No falls this admission. 1. Fall precautions 2. PT consult (14) Bacteremia Impression: Stable. Per outside records: on 03/30 she started complaining of abdominal pain and was having increased stool frequency. A CT was performed and she was found to have pancolitis. They treated conservatively with bowel rest and abx, which are due to be stopped in 2-3 days. Blood cultures 03/31 grew MSSA but the source w as unknown. Repeat blood cx negative 04/02 and she has not had signs of infection while admitted here. She does continue to have right sided abdominal pain. CT done 04/24 was negative for further ischemic colitis/pancolitis. She has remained afebrile and without signs of infection this admission. 1. Continue abx as per pharmacy (15) Coronary artery disease Impression: Outside records indicate she has heavily calcified regurgitant and stenotic mitral valve (EP concluded 03/22/20). Right and left heart cath performed 03/28/20 revealed mild nonobstructive CAD. She underwent cardioversion x2 in [place] and x1 here, remains in afib/aflutter. Hypotensive today, metoprolol dose was decreased. 1. Follow up outpatient cardiology 2. Continue home medications 3. Decrease dose of Metoprolol Qualifiers: Coronary Disease-Associated Artery/Lesion type: unspecified vessel or lesion type [place] vs. transplanted heart: unspecified whether [place] or transplanted heart Associated angina: without angina Qualified Code(s): I25.10 - Atherosc lerotic heart disease of [place] coronary artery without angina pectoris (16) History of ischemic colitis Impression: Resolved. Found to have pancolitis on abd/pelvis CT 03/31, treated conservatively with abx and bowel rest. Tolerating a diet at home but reports black stools at home (has not had any here). 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 She was thought to have low flow ischemic colitis due to EF 35%, diruetics, 2 cardioversions, aflutter with RVR. She continues to have right abdominal pain but feels like it may be improving. CT done 04/24 did not show ischemic colitis and she has been tolerating a regular diet. 1. Regular/diabetic diet 2. Continue abx as per pharmacy
[2020-04-26] MEDS: RIVAROXABAN 10 MG TABLET PO SCH (17:20)
[2020-04-26] MEDS: ATORVASTATIN 40 MG TABLET PO SCH (20:19)
[2020-04-26] MEDS: AMITRIPTYLINE 25 MG TABLET PO SCH (20:19)
[2020-04-26] MEDS: traZODone 50 MG TABLET PO SCH (20:19)
[2020-04-26] MEDS ORDERED: METOPROLOL SUCCINATE 50 MG TABLET PO SCH (21:00)
[2020-04-27] MEDS: oxyCODONE 5 MG TABLET PO PRN ×3 (00:54→11:40)
[2020-04-27] MEDS: SODIUM CHLORIDE FLUSH 0.9% 10 ML SYRINGE IVP SCH ×3 (00:54→16:55)
[2020-04-27 05:44] LABS: BASOPHILS # (AUTO) 0.1 10^3/uL (0.0-0.1); BASOPHILS % (AUTO) 1.1 %; EOSINOPHILS # (AUTO) 0.3 10^3/uL (0.0-0.7); EOSINOPHILS % (AUTO) 6.2 %; HCT - HEMATOCRIT 32.6 % (37.0-47.0); HGB - HEMOGLOBIN 9.6 g/dL (12.0-16.0); LYMPHOCYTES # (AUTO) 1.1 10^3/uL (1.5-3.5); LYMPHOCYTES % (AUTO) 24.4 %; MEAN CORPUSCULAR HEMOGLOBIN 28.7 pg (27.0-31.0); MEAN CORPUSCULAR HGB CONC 29.4 g/dL (32.0-36.0); MEAN CORPUSCULAR VOLUME 97.6 fL (81.0-99.0); MEAN PLATELET VOLUME 11.3 fL (7.9-10.8); MONOCYTES # (AUTO) 0.5 10^3/uL (0.0-1.0); NEUTROPHILS # (AUTO) 2.6 10^3/uL (1.5-6.6); NEUTROPHILS % (AUTO) 58.1 %; PLT - PLATELET COUNT 193 10^3/uL (130-450); RED BLOOD COUNT 3.34 10^6/uL (4.20-5.40); RED CELL DISTRIBUTION WIDTH 25.1 % (12.0-15.0); WHITE BLOOD COUNT 4.5 x10^3/uL (4.8-10.8)
[2020-04-27] MEDS: MAGNESIUM OXIDE 400 MG TABLET PO SCH ×3 (06:34→20:41)
[2020-04-27] MEDS: AMIODARONE 200 MG TABLET PO SCH (08:51)
[2020-04-27] MEDS: PANTOPRAZOLE 40 MG VIAL IVP SCH ×2 (08:52→20:41)
[2020-04-27] MEDS: METOPROLOL SUCCINATE 50 MG TABLET PO SCH ×2 (08:52→20:42)
[2020-04-27] MEDS: INSULIN ASPART 300 UNIT/3 ML PEN SUBQ SCH ×4 (08:52→20:40)
--- NOTE | 2020-04-27 10:28 | PROVIDER PROGRESS NOTE ---
Subjective - Prog Note Date Prog Note Date: 04/27/20 - Subjective Pt reports feeling: Improved Subjective: Reports she slept well overnight but today is complaining of intermittent chest pain alternating with pressure. Pain is rated 3-5/10, sharp, intermittent, non- radiating. Lying flat makes it better, nothing makes it worse. Some relief with pain medications. Continues to have tachycardia with rate to the 120s and hypotension. Denies SOB or palpitations. Continues to have right sided abdominal pain, dull and 3/10, intermittent, non-radiating. Objective - Vital Signs/Intake & Output Reviewed Vital Signs: Yes Vital Signs: Vital Signs x48h Temp Pulse Pulse Resp BP Pulse Ox 04/27/20 09:58 109 H 04/27/20 07:59 36.6 C 120 H 18 96/70 96 Intake & Output: Intake & Output 04/24/20 04/25/20 04/26/20 04/27/20 23:59 23:59 23:59 23:59 Intake Total 880 1680 640 450 Output Total 850 150 875 150 Balance 30 1530 -235 300 - Objective General Appearance: positive: No acute distress, Alert Eyes Bilateral: positive: Normal inspection, PERRL ENT: positive: ENT inspection nml, No signs of dehydration Neck: positive: Nml inspection Respiratory: positive: Chest non-tender, No respiratory distress, Breath sounds nml Cardiovascular: positive: Irregularly irregular, Tachycardia, Systolic murmur, Other (chest pain 3-5/10, sharp and intermittent interspersed with periods of feeling pressure. Non-radiating. Lying flat makes it better, nothing makes it worse.) Peripheral Pulses: 2+ Radial (R), 2+ Radial (L), 2+ Dorsalis pedis (R), 2+ Dorsalis pedis (L) Abdomen: positive: No organomegaly, Nml bowel sounds, No distention, Tenderness (intermittent right abdominal tenderness; dull, non-radiating, intermittent, 3/10) Back: positive: Nml inspection Skin: positive: Color nml, Other (bruising to right hip) Extremities: positive: Non-tender, Full ROM, Nml appearance, No pedal edema Neurologic/Psychiatric: positive: Oriented x3 - Lab Results Fish Bones: 04/27/20 05:26 04/26/20 04:21 Other Labs: Lab Results x24hrs 04/27/20 04/27/20 Range/Units 09:30 05:26 WBC 4.5 L (4.8-10.8) x10^3/uL RBC 3.34 L (4.20-5.40) 10^6/uL Hgb 9.6 L (12.0-16.0) g/dL Hct 32.6 L (37.0-47.0) % MCV 97.6 (81.0-99.0) fL MCH 28.7 (27.0-31.0) pg MCHC 29.4 L (32.0-36.0) g/dL RDW 25.1 H (12.0-15.0) % Plt Count 193 (130-450) 10^3/uL MPV 11.3 H (7.9-10.8) fL Neut # (Auto) 2.6 (1.5-6.6) 10^3/uL Lymph # (Auto) 1.1 L (1.5-3.5) 10^3/uL [place] # (Auto) 0.5 (0.0-1.0) 10^3/uL Eos # (Auto) 0.3 (0.0-0.7) 10^3/uL Baso # (Auto) 0.1 (0.0-0.1) 10^3/uL Absolute Nucleated RBC 0.00 x10^3/uL Nucleated RBC % 0.0 /100WBC Troponin I High Sens 11.3 (2.3-14.8) ng/L ABX Reporting Has patient been on IV antibiotics over the past 48 hours?: No Sepsis Event Note (H) - Evaluation Current Stage of Sepsis: Ruled out Assessment/Plan - Problem List (1) Afib Impression: Stable. History of afib and aflutter, on Eliquis. 2 cardioversions done in [place], one done in the ER 3. Current rate ranging from 90s-120s. No evidence of GIB, hgb stable. Eliquis restarted 04/25. Metoprolol increased today back to home dose. She reported alternating chest pain and pressure this morning, 3-5/10 and non-radiating. Sharp, intermittent. Made better by lying d own, nothing made it worse. EKG showed afib with right bundle branch block, no change from previous. Troponin normal at 11. Records were received from her admission in [place] and show she was admitted for chest pain, dyspnea, acute blood loss anemia and concern for GIB. She was found to be in afib/aflutter and seen by Cardiology. Rate control was limited by hypotension and systolic and valvular heart failure. EP was concluded on 03/22 and she was noted to have heavily calcified regurgitant and stenotic mitral valves. JOEL cardioversion was performed 03/26 at which time she had a short du ration of NSR but ultimately reverted back to aflutter. Due to being symptomatic she underwent right and left heart catheterization on 03/28, revealing mild nonobstructive CAD. She again underwent cardioversion on 03/30 and ultimately remained in NSR for the duration of her stay. This admission she has remained in afib after her cardioversion. 1. Continue Eliquis 2. Continue home medications Qualifiers: Atrial fibrillation type: paroxysmal Qualified Code(s): I48.0 - Paroxysmal atrial fibrillation (2) SARA (acute kidney injury) Impression: Improving. Creatinine 1.5 on admission, 1.1 at last check . Appropriate urine output. Will continue to monitor. 1. Trend BUN/Creatinine 2. Monitor I/Os (3) Diabetes mellitus Impression: Stable. No recent A1C. Blood sugars 80s-110s today. Takes Glipizide at home. Tolerating a regular/diabetic diet. No n/v. Blood sugars have remained below the 110s today. 1. SSI 2. Continue Glipizide. Qualifiers: Diabetes mellitus type: type 2 Diabetes mellitus medical terminologist insulin use: without custodial use Diabetes mellitus complication status: without complication Qualified Code(s): E11.9 - Type 2 diabetes mellitus without complications (4) CHF exacerbation Impression: Stable. Last Echo in [facility] is 07/12/2019 which showed EF 40-50%, mild CHF. 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 BNP of 4668 /, no SOB except with exertion. May be related to 3 prior blood transfusions this month though this is unclear. Given IV lasix in the ED and has had appropriate urine output, slightly agustin. Dys pnea on exertion. Has to go up 20 stairs to get to her apartment. Worked with PT and does not believe she can make it all the way up the stairs, amenable to a short SNF or rehab stay to get stronger and more able to get up the stairs to her apartment. Likely to discharge to SNF tomorrow. 1. Continue home medications 2. Daily weights 3. Monitor I/Os 4. PT 5. 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 She has to climb 20 stairs at her building to get to her apartment, which is not an [place] apartment. She worked with PT and she and PT do not believe she currently has the strength to climb this number of stairs safely. She was amenable to a SNF/Rehab referral for discharge. Likely to discharge tomorrow. 1. PT 2. SNF/Rehab referral (6) Contusion, hip Impression: Stable. Fell 04/10 when getting out of car at [facility] infusion clinic. Seen in the ED, x-rays negative for fracture. The hip region is ecchymotic and painful but she does have range of motion at the site. Has had other falls since per report. 1. Analgesia PRN 2. Alternate ice packs and warm packs PRN Qualifiers: Encounter type: subsequent encounter Laterality: right Qualified Code(s): S70.01XD - Contusion of right hip, subsequent encounter (7) Depression Impression: Stable. Has a prior diagnosis of depression, for which she takes amitriptoline. 1. Continue home meds. Qualifiers: Depression Type: unspecified Qualified Code(s): F32.9 - Major depressive disorder, single episode, unspecified (8) PVD (peripheral vascular disease) Impression: Stable. Prior records indicate a history of PVD for which she was taking a statin and aspirin with plan to follow up outpatient with Vascular Surgery. Currently taking Atorvastatin and Eliquis, no aspirin. 1. Continue Atorvastatin 2. Continue Eliquis. (9) History of fall Impression: Has fallen x3 in the last month. Seen in the ED 04/10 after falling getting out of the car. Has not hit her head, no LOC. Denies dizziness or lightheadedness but it is unclear what is causing the falls other than possible weakness. No falls this admission. Planning to DC to SNF tomorrow for further rehabilitation. 1. Fall precautions 2. PT (10) Bacteremia Impression: Resolved. Per outside records: on 03/30 she started complaining of abdominal pain and was having increased stool frequency. A CT was performed and she was found to have pancolitis. They treated conservatively with bowel rest and abx, which are due to be stopped in 2-3 days. Blood cultures 03/31 grew MSSA but the source was unknown. Repeat blood cx negative 04/02 and she has not had signs of infection while admitted here. She does continue to have right sided abdominal pain. CT done 04/24 was negative for further ischemic colitis/pancolitis. She has remained afebrile and without signs of infection this admission. 1. Continue abx as per pharmacy, last dose today (11) Coronary artery disease Impression: Outside records indicate she has heavily calcified regurgitant and stenotic mitral valve (EP concluded 03/22/20). Right and left heart cath performed 03/28/20 revealed mild nonobstructive CAD. She underwent cardioversion x2 in [place] and x1 here, remains in afib/aflutter. Home metoprolol dose resumed today. 1. Follow up outpatient cardiology 2. Continue home medications Qualifiers: Coronary Disease-Associated Artery/Lesion type: unspecified vessel or lesion type [place] vs. transplanted heart: unspecified whether red devil or transplanted heart Associated angina: without angina Qualified Code(s): I25.10 - Atherosclerotic heart disease of red devil coronary artery without angina pectoris (12) History of ischemic colitis Impression: Resolved. Found to have pancolitis on abd/pelvis CT 03/31, treated conservatively with abx and bowel rest. Tolerating a diet at home but reports black stools at home (has not had any here). 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 She was thought to h ave low flow ischemic colitis due to EF 35%, diruetics, 2 cardioversions, aflutter with RVR. She continues to have right abdominal pain but feels like it may be improving. CT done 04/24 did not show ischemic colitis and she has been tolerating a regular diet. 1. Regular/diabetic diet 2. Continue abx as per pharmacy, last dose today (13) Atrial flutter with rapid ventricular response Impression: Resolved. Found to be in aflutter on EKG in the ED, rate of 122. She has a history of afib and aflutter, takes Eliquis at home. Per outpatient records she underwent 2 cardioversions in [place] and by discharge in March was normal sinus rhythm. She was found to be in aflutter in the ED and cardioverted, has remained in afib since then. Her rate has been back to the 120s today and she is complaining of pain/pressure in the area. 1. Continue Eliquis 2. EKG (14) GI bleed Impression: Resolved. Pt had a recent GIB while hospitalized in [place]. Per her daughter she was transfused x3, with Hgb 6.4--->8. Over 3 days prior to admission patient had multiple loose black stools. No hematochezia or hematemesis. Takes Eliquis at baseline, PT/INR on admission were 30.7/2.9 and hgb 10.2. Hgb has remained stable >9 this admission, no signs of bleeding or black stools. Per records from admission to [place], she was admitted 03/19 with chest pain, dyspnea, acute blood loss anemia and GIB. An EGD performed 03/21 revealed non- bleeding ulcers with clean bases and erythematous duodenopathy. The records from the EGD were obtained today and unremarkable. She was ultimately recommended to continue a PPI for 12 weeks and okayed to continue Xarelto. 1. Continue protonix Qualifiers: GI bleed type/associated pathology: unspecified gastrointestinal hemorrhage type Qualified Code(s): K92.2 - Gastrointestinal hemorrhage, unspecified (15) TIA (transient ischemic attack) Impression: Stable. Hx TIA June 2019. No signs of TIA this admission. 1. Continue Eliquis.
[2020-04-27] MEDS: ACETAMINOPHEN 325 MG TABLET PO PRN ×2 (11:40→17:34)
[2020-04-27] MEDS ORDERED: SENNA 8.6 MG TABLET PO PRN (15:51)
[2020-04-27] MEDS ORDERED: SODIUM CHLORIDE 0.9% 500 ML IV ONE (15:58)
[2020-04-27] MEDS: RIVAROXABAN 10 MG TABLET PO SCH (16:55)
[2020-04-27] MEDS: DOCUSATE SODIUM 250 MG CAPSULE PO PRN (16:55)
[2020-04-27] MEDS: AMITRIPTYLINE 25 MG TABLET PO SCH (20:41)
[2020-04-27] MEDS: traZODone 50 MG TABLET PO SCH (20:41)
[2020-04-27] MEDS: ATORVASTATIN 40 MG TABLET PO SCH (20:41)
[2020-04-27] MEDS: SODIUM CHLORIDE FLUSH 0.9% 10 ML SYRINGE IVP PRN (20:41)
[2020-04-28] MEDS: SODIUM CHLORIDE FLUSH 0.9% 10 ML SYRINGE IVP SCH ×4 (01:04→23:48)
[2020-04-28] MEDS: oxyCODONE 5 MG TABLET PO PRN (03:32)
[2020-04-28 05:11] LABS: BASOPHILS # (AUTO) 0.1 10^3/uL (0.0-0.1); EOSINOPHILS # (AUTO) 0.2 10^3/uL (0.0-0.7); EOSINOPHILS % (AUTO) 3.8 %; HCT - HEMATOCRIT 35.3 % (37.0-47.0); LYMPHOCYTES # (AUTO) 1.1 10^3/uL (1.5-3.5); LYMPHOCYTES % (AUTO) 22.7 %; MEAN CORPUSCULAR HEMOGLOBIN 28.6 pg (27.0-31.0); MEAN CORPUSCULAR HGB CONC 28.3 g/dL (32.0-36.0); MEAN CORPUSCULAR VOLUME 100.9 fL (81.0-99.0); MONOCYTES # (AUTO) 0.5 10^3/uL (0.0-1.0); MONOCYTES % (AUTO) 9.6 %; NEUTROPHILS # (AUTO) 3.1 10^3/uL (1.5-6.6); NEUTROPHILS % (AUTO) 62.7 %; PLT - PLATELET COUNT 173 10^3/uL (130-450)
[2020-04-28 05:22] LABS: POTASSIUM 3.8 mmol/L (3.5-5.0)
[2020-04-28 05:46] LABS: PLATELET ESTIMATE, MANUAL NORMAL (130-450,000) (NORMAL); PLATELET MORPHOLOGY NORMAL APPEARANCE (NORMAL); WBC MORPHOLOGY (MULTIPLE) NORMAL APPEARANCE (NORMAL)
[2020-04-28] MEDS: MAGNESIUM OXIDE 400 MG TABLET PO SCH ×3 (06:36→22:13)
[2020-04-28] MEDS ORDERED: SODIUM CHLORIDE 0.9% 500 ML IV ONE ×2 (07:24→08:04)
[2020-04-28 07:53] LABS: ALBUMIN 2.7 g/dL (3.2-5.5); BILIRUBIN,DIRECT 0.3 mg/dL (0.1-0.5); BILIRUBIN,TOTAL 0.7 mg/dL (0.2-1.0); TOTAL PROTEIN 5.7 g/dL (6.7-8.2)
[2020-04-28] MEDS: SODIUM CHLORIDE FLUSH 0.9% 10 ML SYRINGE IVP PRN (08:01)
[2020-04-28] MEDS: INSULIN ASPART 300 UNIT/3 ML PEN SUBQ SCH ×4 (08:08→22:13)
[2020-04-28] MEDS ORDERED: FUROSEMIDE 20 MG TABLET PO SCH (09:00)
[2020-04-28] MEDS: METOPROLOL SUCCINATE 50 MG TABLET PO SCH ×2 (09:18→22:14)
[2020-04-28 10:33] LABS: BILIRUBIN,URINE NEGATIVE (NEGATIVE); GLUCOSE, URINE (UA) NEGATIVE (NEGATIVE); KETONES,URINE (UA) NEGATIVE (NEGATIVE); LEUKOCYTE ESTERASE, URINE NEGATIVE (NEGATIVE); NITRITE,URINE POSITIVE (NEGATIVE); OCCULT BLOOD,URINE MODERATE (NEGATIVE); PH,URINE 5.5 PH (5.0-7.5); PROTEIN,URINE 100 mg/dL (NEGATIVE); UROBILINOGEN,URINE 0.2 (NORMAL) E.U./dL (NORMAL)
[2020-04-28 10:35] LABS: CLARITY,URINE CLOUDY (CLEAR)
[2020-04-28] MEDS: PANTOPRAZOLE 40 MG TABLET PO SCH ×2 (10:46→16:38)
[2020-04-28] MEDS: polyethylene glycoL 3350 17 GM PACKET PO SCH (10:47)
[2020-04-28] MEDS: AMIODARONE 200 MG TABLET PO SCH (10:47)
[2020-04-28 10:50] LABS: BACTERIA,URINE Few /HPF (None Seen); RBC,URINE TNTC /HPF (0-5); SQUAMOUS EPITHELIAL CELL,UR FEW Squamous (<= Few)
--- NOTE | 2020-04-28 10:50 | PROVIDER PROGRESS NOTE ---
Subjective - Prog Note Date Prog Note Date: 04/28/20 - Subjective Pt reports feeling: No change Subjective: Pt slept well overnight, denies n/v. Continues to have mild right side abdominal pain. Decreased urine overnight, dark agustin in color. Objective - Vital Signs/Intake & Output Reviewed Vital Signs: Yes Vital Signs: Vital Signs x48h Temp Pulse Resp BP Pulse Ox 04/28/20 07:25 36.7 C 98 16 93/66 96 Intake & Output: Intake & Output 04/25/20 04/26/20 04/27/20 04/28/20 23:59 23:59 23:59 23:59 Intake Total 3740 619 3645 600 Output Total 150 875 360 100 Balance 1530 -235 840 500 - Objective General Appearance: positive: No acute distress, Alert Eyes Bilateral: positive: Normal inspection, PERRL ENT: positive: ENT inspection nml, No signs of dehydration Neck: positive: Nml inspection Respiratory: positive: No respiratory distress, Breath sounds nml Cardiovascular: positive: Irregularly irregular, Systolic murmur Peripheral Pulses: 2+ Radial (R), 2+ Radial (L) Abdomen: positive: No organomegaly, Nml bowel sounds, No distention, Tenderness (mild right side tenderness, unchanged from previous days) Skin: positive: Color nml Extremities: positive: Non-tender, Full ROM, Nml appearance, No pedal edema Neurologic/Psychiatric: positive: Oriented x3 Comments/Other: Dark agustin urine, low output - Lab Results Fish Bones: 04/28/20 05:03 04/28/20 05:03 Other Labs: Lab Results x24hrs 04/28/20 04/28/20 04/28/20 Range/Units 05:03 05:03 05:03 WBC 5.0 (4.8-10.8) x10^3/uL RBC 3.50 L (4.20-5.40) 10^6/uL Hgb 10.0 L (12.0-16.0) g/dL Hct 35.3 L (37.0-47.0) % MCV 100.9 H (81.0-99.0) fL MCH 28.6 (27.0-31.0) pg MCHC 28.3 L (32.0-36.0) g/dL RDW 25.0 H (12.0-15.0) % Plt Count 173 (130-450) 10^3/uL MPV 11.0 H (7.9-10.8) fL Neut # (Auto) 3.1 (1.5-6.6) 10^3/uL Lymph # (Auto) 1.1 L (1.5-3.5) 10^3/uL Rogers # (Auto) 0.5 (0.0-1.0) 10^3/uL Eos # (Auto) 0.2 (0.0-0.7) 10^3/uL Baso # (Auto) 0.1 (0.0-0.1) 10^3/uL Absolute Nucleated RBC 0.00 x10^3/uL Nucleated RBC % 0.0 /100WBC WBC Morphology NORMAL APPEARANCE (NORMAL) Platelet Estimate NORMAL (130-450,000) (NORMAL) Platelet Morphology NORMAL APPEARANCE (NORMAL) RBC Morph Micro Appear 1+ POIKILOCYTOSIS (NORMAL) Sodium 138 (135-145) mmol/L Potassium 3.8 (3.5-5.0) mmol/L Chloride 99 L (101-111) mmol/L Carbon Dioxide 32 (21-32) mmol/L Anion Gap 7.0 (6-13) BUN 10 (6-20) mg/dL Creatinine 1.0 (0.4-1.0) mg/dL Estimated GFR (MDRD) 54 L (>89) Glucose 81 (70-100) mg/dL Calcium 8.0 L (8.5-10.3) mg/dL Total Bilirubin 0.7 (0.2-1.0) mg/dL Direct Bilirubin 0.3 (0.1-0.5) mg/dL AST 33 (10-42) IU/L ALT 18 (10-60) IU/L Alkaline Phosphatase 58 (42-121) IU/L Total Protein 5.7 L (6.7-8.2) g/dL Albumin 2.7 L (3.2-5.5) g/dL Globulin 3.0 (2.1-4.2) g/dL Urine Color Urine Clarity (CLEAR) Urine pH (5.0-7.5) PH Ur Specific [place] (1.002-1.030) Urine Protein (NEGATIVE) mg/dL Urine Glucose (UA) (NEGATIVE) mg/dL Urine Ketones (NEGATIVE) mg/dL Urine Occult Blood (NEGATIVE) Urine Nitrite (NEGATIVE) Urine Bilirubin (NEGATIVE) Urine Urobilinogen (NORMAL) E.U./dL Ur Leukocyte Esterase (NEGATIVE) 04/28/20 Range/Units 03:20 WBC (4.8-10.8) x10^3/uL RBC (4.20-5.40) 10^6/uL Hgb (12.0-16.0) g/dL Hct (37.0-47.0) % MCV (81.0-99.0) fL MCH (27.0-31.0) pg MCHC (32.0-36.0) g/dL RDW (12.0-15.0) % Plt Count (130-450) 10^3/uL MPV (7.9-10.8) fL Neut # (Auto) (1.5-6.6) 10^3/uL Lymph # (Auto) (1.5-3.5) 10^3/uL Rogers # (Auto) (0.0-1.0) 10^3/uL Eos # (Auto) (0.0-0.7) 10^3/uL Baso # (Auto) (0.0-0.1) 10^3/uL Absolute Nucleated RBC x10^3/uL Nucleated RBC % /100WBC WBC Morphology (NORMAL) Platelet Estimate (NORMAL) Platelet Morphology (NORMAL) RBC Morph Micro Appear (NORMAL) Sodium (135-145) mmol/L Potassium (3.5-5.0) mmol/L Chloride (101-111) mmol/L Carbon Dioxide (21-32) mmol/L Anion Gap (6-13) BUN (6-20) mg/dL Creatinine (0.4-1.0) mg/dL Estimated GFR (MDRD) (>89) Glucose (70-100) mg/dL Calcium (8.5-10.3) mg/dL Total Bilirubin (0.2-1.0) mg/dL Direct Bilirubin (0.1-0.5) mg/dL AST (10-42) IU/L ALT (10-60) IU/L Alkaline Phosphatase (42-121) IU/L Total Protein (6.7-8.2) g/dL Albumin (3.2-5.5) g/dL Globulin (2.1-4.2) g/dL Urine Color BROWN Urine Clarity CLOUDY (CLEAR) Urine pH 5.5 (5.0-7.5) PH Ur Specific [place] >=1.030 H (1.002-1.030) Urine Protein 100 H (NEGATIVE) mg/dL Urine Glucose (UA) NEGATIVE (NEGATIVE) mg/dL Urine Ketones NEGATIVE (NEGATIVE) mg/dL Urine Occult Blood MODERATE H (NEGATIVE) Urine Nitrite POSITIVE H (NEGATIVE) Urine Bilirubin NEGATIVE (NEGATIVE) Urine Urobilinogen 0.2 (NORMAL) (NORMAL) E.U./dL Ur Leukocyte Esterase NEGATIVE (NEGATIVE) ABX Reporting Has patient been on IV antibiotics over the past 48 hours?: No Sepsis Event Note (H) - Evaluation Current Stage of Sepsis: Ruled out Assessment/Plan - Problem List (1) Agustin-colored urine Impression: Pt has had decreasing urine output over the past 3 days despite IVF bolus. Ove rnight her urine became a very dark agustin, almost bili in appearance. BUN and creatinine have improved and are within normal limits. LFTs, bilirubin and hgb are normal. Prior abd/pelvis CT on 04/25 was normal other than gallstones present. Her urine was sent for UA and was positive for nitrates and occult blood. No ramirez catheter is present and no signs of bleeding. Urine specific gravity is high; discussed with on-call Cook Camp who recommended infusing extra fluids to attempt to normalize the urine output and appearance. 1. Nephrology consult 2. LR bolus then 125mL/hour (2) Afib Impression: Stable. History of afib and aflutter, on Eliquis. 2 cardioversions done in [place], one done in the ER 3. Current rate ranging from 90s-100s. No evidence of GIB, hgb stable. Eliquis restarted 04/25. Metoprolol increased / back to home dose. No change in the previously reported chest pain/pressure. Records were received from her admission in [place] and show she was admitted for chest pain, dyspnea, acute blood loss anemia and concern for GIB. She was found to be in afib/aflutter and seen by Cardiology. Rate control was limited b y hypotension and systolic and valvular heart failure. EP was concluded on 03/22 and she was noted to have heavily calcified regurgitant and stenotic mitral valves. JOEL cardioversion was performed 03/26 at which time she had a short duration of NSR but ultimately reverted back to aflutter. Due to being symptomatic she underwent right and left heart catheterization on 03/28, revealing mild nonobstructive CAD. She again underwent cardioversion on 03/30 and ultimately remained in NSR for the duration of her stay. This admission she has remained in afib after her cardioversion. 1. Continue Eliquis 2. Continue home medications Qualifiers: Atrial fibrillation type: paroxysmal Qualified Code(s): I48.0 - Paroxysmal atrial fibrillation (3) Diabetes mellitus Impression: Stable. No recent A1C. Blood sugars 80s-110s. Takes Glipizide at home, initially restarted but stopped for now given low urine output and change in appearance of urine. Tolerating a regular/diabetic diet. No n/v. B 1. SSI 2. Stop Glipizide. Qualifiers: Diabetes mellitus type: type 2 Diabetes mellitus long term acute care registered nurse insulin use: without long term acute care registered nurse use Diabetes mellitus complication status: without complication Qualified Code(s): E11.9 - Type 2 diabetes mellitus without complications (4) CHF exacerbation Impression: Stable. Last Echo in [facility] is 07/12/2019 which showed EF 40-50%, mild CHF. Her rubber press tender is in [place] and per her daughter she takes all of her med ications consistently. BNP of 4668 04/23, no SOB except with exertion. Has to go up 20 stairs to get to her apartment. Worked with PT and does not believe she can make it all the way up the stairs, amenable to a short SNF or rehab stay to get stronger and more able to get up the stairs to her apartment. Likely to discharge to SNF tomorrow. 1. Continue home medications 2. Daily weights 3. Monitor I/Os 4. PT 5. SNF/Rehab referral Qualifiers: Heart failure type: combined systolic and diastolic Qualified Code(s): I50.43 - Acute on chronic combined systolic (congestive) and diastolic (congestive) heart failure (5) Weakness Impression: Stable. Reports generalized weakness and deconditioning since discharged from the hospital in [place] 04/16. She has to climb 20 stairs at her building to get to her apartment, which is not an [place] apartment. She worked with PT and she and PT do not believe she currently has the strength to climb this number of stairs safely. She was amenable to a SNF/Rehab referral for discharge. Likely to discharge tomorrow once urine has improved. She has an accepting facility. 1. PT (6) Contusion, hip Impression: Stable. Fell 04/10 when getting out of car at [facility]. Seen in the ED, x-rays negative for fracture. The hip region is ecchymotic and painful but she does have range of motion at the site. Has had other falls since per report. 1. Analgesia PRN 2. Alternate ice packs and warm packs PRN Qualifiers: Encounter type: subsequent encounter Laterality: right Qualified Code(s): S70.01XD - Contusion of right hip, subsequent encounter (7) Depression Impression: Stable. Has a prior diagnosis of depression, for which she takes amitriptoline. 1. Continue home meds. Qualifiers: Depression Type: unspecified Qualified Code(s): F32.9 - Major depressive disorder, single episode, unspecified (8) PVD (peripheral vascular disease) Impression: Stable. Prior records indicate a history of PVD for which she was taking a statin and aspirin with plan to follow up outpatient with Vascular Surgery. Currently taking Atorvastatin and Eliquis, no aspirin. 1. Continue Atorvastatin 2. Continue Eliquis. (9) History of fall Impression: Has fallen x3 in the last month. Seen in the ED 04/10 after falling getting out of the car. Has not hit her head, no LOC. Denies dizziness or lightheadedness but it is unclear what is causing the falls other than possible weakness. No falls this admission. Planning to DC to SNF tomorrow for further rehabilitation (DC for today cancelled given urine changes). 1. Fall precautions 2. PT (10) Bacteremia Impression: Resolved. Per outside records: on 03/30 she started complaining of abdominal pain and was having increased stool frequency. A CT was performed and she was found to have pancolitis. They treated conservatively with bowel rest and abx, which are due to be stopped in 2-3 days. Blood cultures 03/31 grew MSSA but the source was unknown. Repeat blood cx negative 04/02 and she has not had signs of infection while admitted here. She does continue to have right sided abdominal pain. CT done 04/24 was negative for further ischemic colitis/pancolitis. She has remained afebrile and without signs of infection this admission. Last dose of IV abx given yesterday. (11) Coronary artery disease Impression: Outside records indicate she has heavily calcified regurgitant and stenotic mitral valve (EP concluded 03/22/20). Right and left heart cath performed 03/28/20 revealed mild nonobstructive CAD. She underwent cardioversion x2 in [place] and x1 here, remains in afib/aflutter. Home metoprolol dose resumed. 1. Follow up outpatient cardiology 2. Continue home medications Qualifiers: Coronary Disease-Associated Artery/Lesion type: unspecified vessel or lesion type [place] vs. transplanted heart: unspecified whether [place]q or transplanted heart Associated angina: without angina Qualified Code(s): I25.10 - Atherosclerotic heart disease of al[place]q coronary artery without angina pectoris (12) History of ischemic colitis Impression: Resolved. Found to have pancolitis on abd/pelvis CT 03/31, treated conservatively with abx and bowel rest. Tolerating a diet at home but reports black stools at home (has not had any here). 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 She was thought to have low flow ischemic colitis due to EF 35%, diruetics, 2 cardioversions, aflutter with RVR. She continues to have right abdominal pain but feels like it may be improving. CT done 04/24 did not show ischemic colitis and she has been tolerating a regular diet. 1. Regular/diabetic diet (13) GI bleed Impression: Resolved. Pt had a recent GIB while hospitalized in [place]. Per her daughter she was transfused x3, with Hgb 6.4--->8. Over 3 days prior to admission patient had multiple loose black stools. No hematochezia or hematemes is. Takes Eliquis at baseline, PT/INR on admission were 30.7/2.9 and hgb 10.2. Hgb has remained stable >9 this admission, no signs of bleeding or black stools. Per records from admission to [place], she was admitted 03/19 with chest pain, dyspnea, acute blood loss anemia and GIB. An EGD performed 03/21 revealed non- bleeding ulcers with clean bases and erythematous duodenopathy. The records f rom the EGD were obtained today and unremarkable. She was ultimately recommended to continue a PPI for 12 weeks and okayed to continue Xarelto. Qualifiers: GI bleed type/associated pathology: unspecified gastrointestinal hemorrhage type Qualified Code(s): K92.2 - Gastrointestinal hemorrhage, unspecified (14) SARA (acute kidney injury) Impression: Resolved, though lower urine output and agustin in color today. Creatinine 1.5 on admission, 1.0 today. Low urine output. Will continue to monitor. 1. Trend BUN/Creatinine 2. Monitor I/Os
[2020-04-28] MEDS: LACTATED RINGERS 1,000 ML IV SCH ×2 (12:47→22:02)
[2020-04-28] MEDS: RIVAROXABAN 10 MG TABLET PO SCH (16:51)
[2020-04-28] MEDS: DOCUSATE SODIUM 250 MG CAPSULE PO PRN (16:51)
[2020-04-28] MEDS ORDERED: FOSFOMYCIN TROMETHAMINE 3 GM PACKET PO ONE (17:52)
[2020-04-28] MEDS: ACETAMINOPHEN 325 MG TABLET PO PRN (18:53)
[2020-04-28] MEDS ORDERED: NITROFURANTOIN MACRO 100 MG CAPSULE PO SCH (21:00)
[2020-04-28] MEDS: AMITRIPTYLINE 25 MG TABLET PO SCH (22:11)
[2020-04-28] MEDS: ATORVASTATIN 40 MG TABLET PO SCH (22:12)
[2020-04-28] MEDS: traZODone 50 MG TABLET PO SCH (22:13)
[2020-04-29] MEDS: PANTOPRAZOLE 40 MG TABLET PO SCH (05:55)
[2020-04-29] MEDS: LACTATED RINGERS 1,000 ML IV SCH (05:55)
[2020-04-29] MEDS: MAGNESIUM OXIDE 400 MG TABLET PO SCH ×2 (05:55→13:24)
[2020-04-29] MEDS: METOPROLOL SUCCINATE 50 MG TABLET PO SCH (08:15)
[2020-04-29] MEDS: polyethylene glycoL 3350 17 GM PACKET PO SCH (08:15)
[2020-04-29] MEDS: INSULIN ASPART 300 UNIT/3 ML PEN SUBQ SCH ×2 (08:16→11:55)
[2020-04-29] MEDS: AMIODARONE 200 MG TABLET PO SCH (08:16)
[2020-04-29] MEDS: SODIUM CHLORIDE FLUSH 0.9% 10 ML SYRINGE IVP SCH (08:16)
[2020-04-29] MEDS ORDERED: SENNA 8.6 MG TABLET PO SCH (09:00)
[2020-04-29] MEDS ORDERED: DOCUSATE SODIUM 250 MG CAPSULE PO SCH (09:00)
[2020-04-29 09:03] VITALS: BP 106/71
--- NOTE | 2020-04-29 10:22 | Discharge Plan ---
"Discharge Plan for SNF / [facility] - Discharge Plan And Transition Orders Problem Reviewed?: Yes Disposition: SNF DC/Xfer Condition: Good Allergies and Adverse Reactions: Allergies Allergy/AdvReac Type Severity Reaction Status Date / Time No Known Drug Allergies Allergy Verified 04/23/20 09:47 Health Concerns: You presented to our hospital with weakness, generalized abdominal pain and black stools. We found you to be having an upper GI bleed, and uncontrolled atrial fibrillation with mild congestive heart failure. You had recently been discharged from [facility] for the same problems and had been there for 3 weeks. At [facility] you were treated for atrial fibrillation and were cardioverted twice. You had a right heart cath. You had an EGD and colonoscopy. You were found to have ischemic colitis. If you get ischemic colitis again, you are a candidate for stents in the arteries of your colon. You also were found to have gastric ulcers. We did not repeat the work-up that [facility] did. We stopped the anticoagulation that was in place for your atrial fibrillation. Your black stools stopped. You did not need transfusion. We have resumed your anticoa gulation/blood thinners for the atrial fibrillation risk of stroke, and you have not had any more black stools for a few days. You must complete Protonix twice a day for a total of 2 months. That is for your ulcers. Your atrial fibrillation rate is now controlled. The day before discharge, your urine turned tea colored. It was very concentrated, and had bacteria. We hydrated you with IV fluids, gave you a dose of fosfomycin and her urine has cleared up today. You still require 1/2 L of oxygen to maintain your oxygen at a normal level in your bloodstream. Your last bowel movement was April 23 and we are giving you treatment today. You do not have a Domínguez catheter. You do not have any skin breakdown. However, you are very weak. You are not strong enough to return to home. Physical therapy has seen and evaluated you and feels that you would be a good candidate for strengthening rehabilitation at a long-term facility. You will then return to home. Plan of Treatment: 1. Complete Protonix. We would suggest that you complete that through the end of April. You are to avoid any aspirin, Aleve, ibuprofen or any nonsteroidal products. 2. While you are in the long-term facility, have a weekly CBC to make sure you are not getting anemic. 3. Gradually improve your endurance and her strength so that you no longer need durable medical equipment and you are off oxygen. Care Goals: To return to home. You have stated to your power of bankruptcy attorney, Ally Florian @[phone], that you do not ever want to be permanently placed in a long-term facility. If the time were to come where you are completely dependent and need to be taken care of by someone, you would prefer to be at home and be transition to palliative care and then hospice. - SNF / ASSISTED Transition Orders Discharge Diagnosis: 1. Atrial fibrillation/atrial flutter with RVR, RVR resolved 2. Acute on chronic combined systolic and diastolic heart failure. Echocardiogram April 14 at [facility] shows left ventricular ejection fraction 35%. Global hypokinesis with severe hypokinesis of the anterior and anteroseptal segments. Right ventricle moderately hypokinetic. Biatrial enlargement. Heavily calcified mitral valve. Moderate mitral valve stenosis. Echocardiogram June 2019 had ejection fraction of 45 to 50%. 3. Melena, resolved. Most likely due to problem #4. 4. Gastric ulcers on EGD done at [facility] 5. Abdominal pain due to ischemic bowel, resolved 6. Acute kidney injury resolved. Max creatinine was 1.5. 7. Chronic kidney disease stage III. Baseline creatinine is 1.0. 8. Generalized weakness 9. Type 2 diabetes mellitus, without complication, without long-term use of insulin 10. MSSA bacteremia. Evaluation with echocardiogram, and right heart angiograms for endocarditis were negative at [facility]. She completed therapy with Flagyl and ceftriaxone while hospitalized in this hospital. 11. Severe hearing loss. 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 12. Generalized anxiety and depression 13. Chronic back pain 14. Status post fall March 2016 with contusion and bruising right hip. Films negative. 15. Anemia. Baseline hemoglobin 10.0. 16. UTI resolved Medicare Certification Statement: I certify that [facility] care is medically necessary on a continuing basis for any of the conditions for which she/he is receiving care during hospitalization. Notify PCP of admission and forward orders to primary provider for signature. Weight on admission and: Daily Call PCP immediately if weight increases by: 2 kg Other Notification Orders: Call PCP immediately if patient develops dyspnea, chest pain/tightness or edema. House Bowel Program: Yes Additional Bowel Program Orders: If no BM after 2 days, nurse may give M.O.M. 30ml PO PRN and/or ducolax Supp 1 GA and/or SKYLER 250mg P.O., and/or senna 1-2 tabs PO. On day 3 nurse may give repeat above order until residents constipation is resolved. Annual Influenza Vaccine (between Oct 23 and May 22): Yes Two-step PPD per [facility] [id number] or approved exception documents: Yes Oxygen Orders: Nasal cannula oxygen to maintain O2 sats greater than 92%. Currently at 1-1/2 L. Lab Tests or X-ray Orders: CBC weekly to start May 06, BMP weekly to start May 06, BNP weekly to start May 06 Medication Orders: PLEASE REFER TO THE DISCHARGE MEDICATION LIST. Insulin Orders?: No - Medications New Prescriptions: traZODone [Desyrel] 50 mg PO QPM #30 tablet - Diet Type: No added sugar (and no added salt) Texture: Regular Liquids: Thin May have monthly special meal: Yes - Therapies | Activity Therapy: Evaluation | Treat if indicated: PT, OT Rehabilitation Potential: Maximize functional status, Return to independent living Activity: Activity as Tolerated Assistance Devices: Walker Follow Up: [facility], [facility]"
--- NOTE | 2020-04-29 10:38 | DISCHARGE SUMMARY ---
Discharge Summary Admit Date: 04/23/20 Discharge Date: 04/29/20 Discharging Provider: Sandra Salas Primary Care Provider: Willian Roque Code Status: Do Not Attempt Resuscitation Condition at Discharge: Good Discharge Disposition: SNF DC/Xfer - DIAGNOSES Discharge Diagnoses with Status of Each Condition: (1) Urinary tract infection Impression: Improved. Pt had decreasing urine output over the weekend despite IVF bolus. She was scheduled to d/c to a SNF on 04/28, however overnight her urine became a very dark agustin, almost bili in appearance. A UA revealed she had nitrates and occult blood with a UTI and she was given Fosfomycin x1 per uncomplicated UTI protocol. BUN and creatinine have improved and are within normal limits. LFTs, bilirubin and hgb are normal. Prior abd/pelvis CT on 04/25 was normal other than gallstones present. No ramirez catheter is present and no signs of bleeding. Urine specific gravity was high; discussed with on-call Soap Boiler who recommended infusing extra fluids to attempt to normalize the urine output and appearance. She was given fluid boluses with appropriate urine output overnight, not as dark agustin today. (2) Afib Impression: Stable. History of afib and aflutter, on Eliquis. 2 cardioversions done in [place], one done in the ER 04/23. Current rate ranging from 90s-100s. No evidence of GIB, hgb stable. Eliquis restarted 04/25. Metoprolol increased 04/27 back to home dose. No change in the previously reported chest pain/pressure. Records were received from her admission in [place] and show she was admitted for chest pain, dyspnea, acute blood loss anemia and concern for GIB. She was found to be in afib/aflutter and seen by Cardiology. Rate control was limited by hypotension and systolic and valvular heart failure. EP was concluded on 03/22 and she was noted to have heavily calcified regurgitant and stenotic mitral valves. JOEL cardioversion was performed 03/26 at which time she had a short duration of NSR but ultimately reverted back to aflutter. Due to being symp tomatic she underwent right and left heart catheterization on 03/28, revealing mild nonobstructive CAD. She again underwent cardioversion on 03/30 and ultimately remained in NSR for the duration of her stay. This admission she has remained in afib after her cardioversion. 1. Continue Eliquis 2. Continue home medications Qualifiers: Atrial fibrillation type: paroxysmal Qualified Code(s): I48.0 - Paroxysmal atrial fibrillation (3) Diabetes mellitus Impression: Stable. No recent A1C. Blood sugars 80s-110s. She has only required 1 unit insulin daily due to poor intake. Takes Glipizide at home, initially restarted but stopped given poor po intake and hypoglycemia. Tolerating a regu lar/diabetic diet. No n/v. 1. SSI Qualifiers: Diabetes mellitus type: type 2 Diabetes mellitus joint terminal attack controller insulin use: without nursing home use Diabetes mellitus complication status: without complication Qualified Code(s): E11.9 - Type 2 diabetes mellitus without complications (4) CHF exacerbation Impression: Stable. Last Echo in [facility] is 07/12/2019 which showed EF 40-50%, mild CHF. March 2020 JOEL from [place] has LVF 35%, global hypokinesis with more severe hypokinesis of the anterior and anteroseptal segments; right ventricle moderately hypokinetic, marked bi-atrial enlargement and heavily calcified mitral valve and moderate mitral valve stenosis. 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 BNP of 4668 04/23, no SOB except with exertion. Has to go up 20 stairs to get to her apartment. Worked with PT and does not believe she can make it all the way up the stairs, amenable to a short SNF or rehab stay to get stronger and more able to get up the stairs to her apartment. Anticipate d/c today. 1. Continue home medications, glipizide stopped 2. Daily weights 3. Monitor I/Os 4. PT 5. SNF/Rehab referral Qualifiers: Heart failure type: combined systolic and diastolic Qualified Code(s): I50.43 - Acute on chronic combined systolic (congestive) and diastolic (congestive) heart failure (5) Weakness Impression: Stable. Reports generalized weakness and deconditioning since discharged from the hospital in [place] 04/16. She has to climb 20 stairs at her building to get to her apartment, which is not an [facility] apartment. She worked with PT and she and PT do not believe she currently has the strength to climb this number of stairs safely. She was amenable to a SNF/Rehab referral for discharge. Likely to discharge today once she has an accepting facility. 1. PT (6) Contusion, hip Impression: Stable. Fell 04/10 when getting out of car at [facility]. Seen in the ED, x-rays negative for fracture. The hip region is ecchymotic and painful but she does have range of motion at the site. Has had other falls since per report. 1. Analgesia PRN 2. Alternate ice packs and warm packs PRN Qualifiers: Encounter type: subsequent encounter Laterality: right Qualified Code(s): S70.01XD - Contusion of right hip, subsequent encounter (7) Depression Impression: Stable. Has a prior diagnosis of depression, for which she takes amitriptoline. Qualifiers: Depression Type: unspecified Qualified Code(s): F32.9 - Major depressive disorder, single episode, unspecified (8) PVD (peripheral vascular disease) Impression: Stable. Prior records indicate a history of PVD for which she was taking a statin and aspirin with plan to follow up outpatient with Vascular Surgery. Currently taking Atorvastatin and Eliquis, no aspirin. (9) History of fall Impression: Has fallen x3 in the last month. Seen in the ED 04/10 after falling getting out of the car. Has not hit her head, no LOC. Denies dizziness or lightheadedness but it is unclear what is causing the falls other than possible weakness. No falls this admission. Anticipate DC today once she has an accepting facility. 1. Fall precautions 2. PT (10) Bacteremia Impression: Resolved. Per outside records: on 03/30 she started complaining of abdominal pain and was having increased stool frequency. A CT was performed and she was found to have pancolitis. They treated conservatively with bowel rest and abx, which are due to be stopped in 2-3 days. Blood cultures 03/31 grew MSSA but the source w as unknown. Repeat blood cx negative 04/02 and she has not had signs of infection while admitted here. She does continue to have right sided abdominal pain. CT done 04/24 was negative for further ischemic colitis/pancolitis. She has remained afebrile and without signs of infection this admission. Last dose of IV abx given 04/27. (11) Coronary artery disease Impression: Outside records indicate she has heavily calcified regurgitant and stenotic mitral valve (EP concluded 03/22/20). Right and left heart cath performed 03/28/20 revealed mild nonobstructive CAD. She underwent cardioversion x2 in [place] and x1 here, remains in afib/aflutter. Home metoprolol dose resumed. 1. Follow up outpatient cardiology 2. Continue home medications Qualifiers: Coronary Disease-Associated Artery/Lesion type: unspecified vessel or lesion type [place] vs. transplanted heart: unspecified whether [place] or transplanted heart Associated angina: without angina Qualified Code(s): I25.10 - Atherosclerotic heart disease of [place] coronary artery without angina pectoris (12) History of ischemic colitis Impression: Resolved. Found to have pancolitis on abd/pelvis CT 03/31, treated conservatively with abx and bowel rest. Tolerating a diet at home but reports black stools at home (has not had any here). 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 She was thought to have low flow ischemic colitis due to EF 35%, diruetics, 2 cardioversions, aflutter with RVR. She continues to have right abdominal pain but feels like it may be improving. CT done 04/24 did not show ischemic colitis and she has been tolerating a regular diet. 1. Regular/diabetic diet (13) GI bleed Impression: Resolved. Pt had a recent GIB while hospitalized in [place]. Per her daughter she was transfused x3, with Hgb 6.4--->8. Over 3 days prior to adm ission patient had multiple loose black stools. No hematochezia or hematemesis. Takes Eliquis at baseline, PT/INR on admission were 30.7/2.9 and hgb 10.2. Hgb has remained stable >9 this admission, no signs of bleeding or black stools. Has not required a blood transfusion. Per records from admission to [place], she was admitted 03/19 with chest pain, dyspnea, acute blood loss anemia and GIB. An EGD performed 03/21 revealed non- bleeding ulcers with clean bases and erythematous duodenopathy. The records from the EGD were obtained today and unremarkable. She was ultimately recommended to continue a PPI for 12 weeks and okayed to continue Xarelto. Qualifiers: GI bleed type/associated pathology: unspecified gastrointestinal hemorrhage type Qualified Code(s): K92.2 - Gastrointestinal hemorrhage, unspecified (14) SARA (acute kidney injury) Impression: Resolved, though lower urine output and agustin in color today. Creatinine 1.5 on admission, 1.0 at last check. Increased urine output after she was fluid bolused yesterday. - HPI History of Present Illness: 75 year old female with past hx including heart failure on digoxin, afib and aflutter on Eliquis x1.5 months, Cardizem rate controlled, recent GIB requiring 3 transufions this month presented to the ED with generalized weakness that has progressively worsened over the past few days as well as abdominal pain and multiple black stools (last one evening 3). Pt is deaf, history obtained by writing on paper, discussion with daughter and per chart review. She was recently hospitalized at [facility] in [place] for GIB. She required 3 blood transfusions for hbg 6.4. She underwent 4 cardioversions as well as a JOEL cardioversion. She was also seen by Infectious Disease for unclear reasons, and daughter reports she was started on IV antibiotics 04/16 meant to last 3 weeks. Daughter reports she was told the antibiotics were for possible infection related to her blood transfusion. She discharged home with family and home health, as the daughter had moved home to help her mother after her admission. Pt refused to allow home health into the home and refused services. Per report she has had multiple black stools over the past 3 days, last 1 was last night. Denies bright red blood per rectum, hematochezia or hematemesis. Denies dizziness or lightheadedness but does have a slight headache. On presentation to the ED she complained of generalized weakness and right abdominal pain. She was found to be in a-flutter per EKG with a fixed rhythm of 122. Cardioversion was performed in the ED, reverted to afib ranging 90-100s. She denies shortness of breath but reports she has dyspnea with exertion. She reports right abdominal pain x3 weeks ("since I discharged"), but is unable to describe or quantify and is not sure what makes it better or worse. Lab work done in the ED revealed a new SARA, with BUN 23 and creatinine 1.5. Her blood sugars are slightly elevated as are her troponins (18.2) and BNP 4668. Lasix was ordered given concern for fluid overload in setting of multiple blood transfusions this month. She has not urinated since prior to arrival in the ED. Last BM was last night. Pt has also fallen x3 this month, unclear if for mechanical or physiological reasons. She reports she fell getting out of the car on her way to the [facility] clinic for abx infusion and was later seen in the ED that day for right hip and right rib contusions. No fracture. She also fell at home and in the bathtub. Denies hitting her head or LOC at either fall. - CONSULTS | PROCEDURES Consultations: Social Work - HOSPITAL COURSE Hospital Course: Pt admitted post cardioversion in the ED and remained in afib with RVR for the hospital stay. Telemetry was discontinued on HD 3. She was restarted on her home dose of Eliquis and Metoprolol on . Her heart rate ranged from 60s-120s. She periodically reported chest pain and pressure, 3-5/10 and intermittent. Described as sharp and non-radiating, relieved when she laid down and with pain medication. No ST changes on EKG. Initially on admission there was concern for GIB given her reports of black stools for 3 days prior to admission. Her hgb remained stable throughout the stay and she did not require a blood transfusion. She also did not have black stools or signs of bleeding throughout the stay. Eliquis was able to be restarted on HD 3. During her prior admission in [place] she was diagnosed with ischemic colitis and started on IV abx. A CT abd/pelvis this admission revealed this had resolved. Her last dose of abx was 3/6 and she completed treatment. She continues to have right side abdominal pain, unchanged from admission. Blood sugars remained normal for most of the stay and she required at maximum 1unit of insulin per day. Her Glipizide was held due to hypoglycemia and SARA and will not be continued due to her continued poor intake and regular blood sugars. BNP on admission was 4668 and she was thought to be having a CHF exacerbation. She was placed on a low salt low carb diet and 2L fluid restriction, both of which she maintained. She did not show signs of fluid overload as her lungs were clear and she was not edematous. Her oxygen status remained stable throughout her hospital stay. Creatinine on admission was found to be 1.5 and she was noted to have SARA. She was given fluids and this had resolved by day of discharge. Her last creatinine was 1.0. Urine was clear and yellow on the day of discharge. Pt reported weakness on admission that she attributed to her previous admission in [place]. She initially was hoping to discharge home, however after working with PT was amenable to discharge to a SNF prior to going home. She has to walk up 20 stairs to get to her apartment and is unable to do so at this time. She was scheduled to discharge to [facility] in [facility] on 04/28, however overnight she had decreasing urine output and her urine was dark agustin almost bile and sludge appearing. She had lower back pain. A UA revealed nitrates, occult blood and a UTI. She also had high specific gravity. After discussion with the on-call Soap Boiler it was felt she may be dry and should have fluid boluses. She was given a dose of Fosfomycin for UTI treatment and a fluid bolus. IVF continued infusing and her urine output increased appropriately. On the day of discharge her urine is clear and yellow. - ALLERGIES Allergies/Adverse Reactions: Allergies Allergy/AdvReac Type Severity Reaction Status Date / Time No Known Drug Allergies Allergy Verified 04/23/20 09:47 - MEDICATIONS Home Medications: Ambulatory Orders Medication Instructions Recorded Confirmed Amitriptyline HCl 100 mg PO QPM 07/13/19 04/23/20 Atorvastatin Calcium 80 mg PO QPM #30 tablet 07/16/19 04/23/20 Furosemide [Lasix] 20 mg PO DAILY 04/23/20 04/23/20 Magnesium Oxide [Mag Ox] 400 mg PO TID 04/23/20 04/23/20 Metoprolol Succinate [Toprol Xl] 50 mg PO BID 04/23/20 04/23/20 Pantoprazole [Protonix] 40 mg PO BID 04/23/20 04/23/20 Rivaroxaban [Xarelto] 20 mg PO HS 04/23/20 04/23/20 Acetaminophen [Tylenol] 650 mg PO Q4HR PRN tablet 04/29/20 Amiodarone [Pacerone] 200 mg PO DAILY #0 04/29/20 04/23/20 traZODone [Desyrel] 50 mg PO QPM #30 tablet 04/29/20 - PHYSICAL EXAM AT DISCHARGE General Appearance: positive: No acute distress, Alert Eyes Bilateral: positive: Normal inspection, PERRL ENT: positive: ENT inspection nml, No signs of dehydration Neck: positive: Nml inspection Respiratory: positive: Chest non-tender, No respiratory distress, Breath sounds nml Cardiovascular: positive: Irregularly irregular, Tachycardia Peripheral Pulses: positive: 2+ Abdomen: positive: No organomegaly, Nml bowel sounds, No distention, Tenderness (Still with periodic right side abdominal pain, unchanged from prior days) Skin: positive: Color nml, Other (right hip eccymosis) Extremities: positive: Non-tender, Full ROM, Nml appearance Neurologic/Psychiatric: positive: Oriented x3 - LABS Result Diagrams: 04/28/20 05:03 04/28/20 05:03 - DIAGNOSTIC IMAGING Diagnostic Imaging Results: Final report reviewed Diagnostic Imaging Results Comments: 3/2 CXR Impression: Findings compatible with pulmonary edema. Concurrent infectious/inflammatory process not completely excluded if clinically appropriate. 3/3 CT Abd/pelvis Impression: Bilateral [id number] pleural effusions, simple in appearance. Mild adjacent atelectasis. Body wall anasarca through the chest abdomen and pelvis. No ascites found. No evidence of bowel ischemia. Note is made of several faintly calcified structures within the posterior border of the gallbladder lumen likely representing small gallstones. Ultrasound assessment would provide a much more accurate evaluation for gallstones in this patient. - SEPSIS Current Stage of Sepsis: Ruled out - TIME SPENT Time Spent in Discharge (Minutes): 35
[2020-04-29] MEDS ORDERED: MAGNESIUM HYDROXIDE 2,400 MG/30 ML UDC PO ONE (11:22)
[2020-04-29 14:49] LABS: CORONAVIRUS 229E-RESP PCR NOT DETECTED; CORONAVIRUS HKU1-RESP PCR NOT DETECTED; CORONAVIRUS NL63-RESP PCR NOT DETECTED; CORONAVIRUS OC43-RESP PCR NOT DETECTED; HUMAN METAPNEUMOVIRUS NOT DETECTED; SARS-CoV-2 -RESP PCR PANEL NOT DETECTED
[2020-04-29 14:50] LABS: B. PARAPERTUSSIS- RESP PCR PAN NOT DETECTED; B. PERTUSSIS- RESP PCR PANEL NOT DETECTED; C. PNEUMONIAE- RESP PCR PANEL NOT DETECTED; INFLUENZA A- RESP PCR PANEL NOT DETECTED; INFLUENZA B - RESP PCR PANEL NOT DETECTED; M. PNEUMONIAE- RESP PCR PANEL NOT DETECTED; PARAINFLUENZA VIRUS 1 NOT DETECTED; PARAINFLUENZA VIRUS 2 NOT DETECTED; PARAINFLUENZA VIRUS 3 NOT DETECTED; PARAINFLUENZA VIRUS 4 NOT DETECTED; RHINOVIRUS/ENTEROVIRUS NOT DETECTED; RSV- RESP PCR PANEL NOT DETECTED
== END 2020-04-29 14:50 | DRG 291 ==
LOC: EDUNIT# → ED 09:00 → ICU 12:57 → MS2 04-24 22:19
PROVIDERS: ADMIT Specialist; ATTEND Specialist
DX: I11.0 Hypertensive heart disease with heart failure (principal); I50.9 Heart failure, unspecified; I13.0 Hypertensive heart and chronic kidney disease with heart failure and stage 1 through stage 4 chronic kidney disease, or unspecified chronic kidney disease; I48.91 Unspecified atrial fibrillation; E11.9 Type 2 diabetes mellitus without complications; F17.200 Nicotine dependence, unspecified, uncomplicated; K25.4 Chronic or unspecified gastric ulcer with hemorrhage; I50.43 Acute on chronic combined systolic (congestive) and diastolic (congestive) heart failure; I48.92 Unspecified atrial flutter; Z20.822 Contact with and (suspected) exposure to COVID-19; N39.0 Urinary tract infection, site not specified; K51.00 Ulcerative (chronic) pancolitis without complications; N17.9 Acute kidney failure, unspecified; E11.22 Type 2 diabetes mellitus with diabetic chronic kidney disease; N18.30 Chronic kidney disease, stage 3 unspecified; I48.0 Paroxysmal atrial fibrillation; I34.0 Nonrheumatic mitral (valve) insufficiency; E11.51 Type 2 diabetes mellitus with diabetic peripheral angiopathy without gangrene; E11.65 Type 2 diabetes mellitus with hyperglycemia; E11.649 Type 2 diabetes mellitus with hypoglycemia without coma; D64.9 Anemia, unspecified; I25.10 Atherosclerotic heart disease of native coronary artery without angina pectoris; E78.00 Pure hypercholesterolemia, unspecified; F17.210 Nicotine dependence, cigarettes, uncomplicated; F32.9 Major depressive disorder, single episode, unspecified; S70.01XD Contusion of right hip, subsequent encounter; G89.29 Other chronic pain; M54.9 Dorsalgia, unspecified; F41.9 Anxiety disorder, unspecified; H91.93 Unspecified hearing loss, bilateral; Z91.81 History of falling; Z66 Do not resuscitate; Z79.01 Long term (current) use of anticoagulants; Z79.84 Long term (current) use of oral hypoglycemic drugs; Z79.82 Long term (current) use of aspirin; Z79.899 Other long term (current) drug therapy; Z86.73 Personal history of transient ischemic attack (TIA), and cerebral infarction without residual deficits
CPT/HCPCS: 36415; 71045; 74177; 80048; 80053; 80076; 81001; 83690; 83735; 83880; 84100; 84484; 85025; 85610; 85730; 86850; 86900; 86901; 87150; 87631; 92960; 93005; 97116; 97161; 97530; 99284; 99285; A9270; J1815; J7120; J8499; Q9967; 0202U